=== PATIENT | female | born 1945 | race Caucasian/White ===

== ENCOUNTER 2020-10-03 00:01 | Inpatient (IN) | payer MEDICARE, SELFPAY ==
[2020-10-03] VITALS (31 sets, daily range): BP systolic 99–138; BP diastolic 48–64; PULSE 72–85; RESP 11–18; TEMP 36.1–36.7; O2SAT 94–100; BMI 38.7
--- NOTE | 2020-10-03 | ECHO_ITS ---
Patient Info Name: Juani Nam Age: 75 years : 1945 Gender: Female Ht: 63 in Wt: 218 lbs BSA: 2.15 m2 HR: 81 bpm BP: 119 / 56 mmHg Heart Rhythm: Sinus Rhythm Technical Quality: Good Exam Date: 10/03/2020 10:24 AM Exam Location: [facility] Pulmonary Exam Room: 211 Patient Status: Inpatient Admit Date: 10/03/2020 Staff Ordering Physician: Esteban Rosales MD Coat Hanger Shaper Machine Operator: Barbara Mejias RDCS Attending Provider: Esteban Rosales MD Exam Type: CA echo doppler color flow Study Info Indications - AMI HX/O PPM R07.89 - Other chest pain Complete two-dimensional, color flow and Doppler transthoracic echocardiogram is performed. Summary 1. Complete two-dimensional, color flow and Doppler transthoracic echocardiogram is performed. 2. Left ventricular chamber dimension is mildly enlarged. 3. Left ventricular systolic function is moderately reduced, estimated at 35-40%. 4. The posterior segment is akinetic. 5. Left atrial chamber dimension is moderately enlarged. 6. Linear artifact in the right atrium suggestive of catheter(s), pacemaker lead(s), or ICD lead(s). Left Ventricle Left ventricular chamber dimension is mildly enlarged. Left ventricular systolic function is moderately reduced, estimated at 35-40%. The left ventricular diastolic function is grade I diastolic dysfunction. The posterior segment is akinetic. Right Ventricle Right ventricular chamber dimension is mildly enlarged. Linear artifact in right ventricle suggestive of catheter(s), pacemaker lead(s), or ICD lead(s). Left Atria Left atrial chamber dimension is moderately enlarged. Right Atria Right atrial chamber dimension is mildly enlarged. Linear artifact in the right atrium suggestive of catheter(s), pacemaker lead(s), or ICD lead(s). Aortic Valve The aortic valve is trileaflet. There is mild aortic valve sclerosis. Pulmonic Valve The pulmonic valve is not well visualized. Mitral Valve The mitral valve has normal leaflets. There is trace mitral valve regurgitation. Tricuspid Valve The tricuspid valve leaflets are normal. There is mild tricuspid valve regurgitation. Pericardium/Pleural The pericardium appears normal. Aorta The aortic root size at the sinus of Valsalva is normal. Left Ventricular Outflow Tract Name Value Normal LVOT 2D LVOT Diameter 2.0 cm LVOT Doppler LVOT Peak Gradient 6 mmHg LVOT Mean Gradient 4 mmHg LVOT VTI 24 cm LVOT VTI/AV VTI Ratio 1.0 LVOT Stroke Volume 75 ml LVOT CO 16.5 l/min LVOT CI 7.7 l/min/m2 Pulmonic Valve Name Value Normal PV Doppler PV Peak Gradient 4 mmHg Mitral
--- NOTE | ~2020-10-03 | XR_ITS ---
EXAMINATION: XR chest 2V DATE: 10/03/2020 00:41 INDICATION: Midline chest pain. TECHNIQUE: Frontal and lateral views of the chest were obtained. COMPARISON: None. FINDINGS: The chest demonstrates clear lungs without pneumonia, pleural effusion, or pneumothorax. Th e heart size is normal. There is a left chest wall pacer with leads in the right atrium and right mallorie tricle. IMPRESSION: 1. No acute cardiopulmonary disease. Reviewed, dictated and finalized at location A.
--- NOTE | 2020-10-03 00:13 | ECG_ITS ---
Measurements Intervals [place] Rate: 78 P: 4 WI: 168 QRS: -2 QRSD: 117 T: 132 QT: 413 QTc: 473 Interpretive Statements SINUS RHYTHM INCOMPLETE LEFT BUNDLE BRANCH BLOCK LOW QRS VOLTAGE IN PRECORDIAL LEADS ST-T WAVE ABNORMALITY IN HIGH LATERAL LEADS- CONSIDER ISCHEMIA BASELINE ARTIFACT- II, III, AVR, AVF, V1, V3-V6 ABNORMAL ECG Electronically Signed On 10-03-2020 7:33:49 CDT by Dwight Corrigan D.O.
--- NOTE | 2020-10-03 00:21 | ED.CHESTPAIN ---
HPI - Chest Pain General Chief Complaint: Chest Pain Stated Complaint: cp, sob x 1 hour Time Seen by Provider: 10/03/20 00:20 Source: patient Mode of arrival: ambulatory Limitations: no limitations History of Present Illness HPI narrative: Patient is a 75-year-old female complaining of chest pain, midsternal, pressure, 7 out of 10, nonradiating accompanied by shortness of breath started approximate 1 hour prior to arrival. Patient took aspirin and nitro which provided relief, currently denies any chest pain or shortness of breath. Patient denies any abdominal pain, nausea, vomiting, diaphoresis, fever or chills. Related Data Allergies Allergy/AdvReac Type Severity Reaction Status Date / Time No Known Allergies Allergy Mild Verified 10/03/20 00:12 Review of Systems Review of Systems: All systems reviewed & are unremarkable except as noted in HPI and below Constitutional: Constitutional: Denies body ache(s), Denies chills, Denies excessive sweating, Denies fatigue, Denies fever(s), Denies headache(s), Denies lethargy, Denies malaise, Denies weakness and Denies weight loss Eyes: Eyes: Denies blurry vision, Denies change in vision and Denies loss of vision ENT: Denies dizziness, Denies ear discharge, Denies headache(s), Denies lip swelling, Denies epistaxis, Denies nasal congestion, Denies neck pain, Denies throat swelling and Denies tongue swelling Cardiovascular: Cardiovascular: Denies diaphoresis, Denies rapid heart rate, Denies edema, Denies irregular heart rhythm, Denies lightheadedness, Denies palpitations and Denies dyspnea on exertion Respiratory: Respiratory: Denies chest congestion, Denies cough, Denies hemoptysis and Denies dyspnea on exertion Gastrointestinal: Gastrointestinal: Denies abdominal pain, Denies melena, Denies hematochezia, Denies diarrhea, Denies nausea, Denies vomiting and Denies hematemesis Musculoskeletal: Musculoskeletal: Denies abnormal gait, Denies deformity, Denies joint swelling, Denies limited range of motion, Denies neck pain and Denies numbness Neurologic: Denies Abnormal speech present, Denies abnormal gait, Denies confusion, Denies dizziness, Denies headache(s), Denies focal weakness, Denies loss of vision, Denies numbness, Denies Other visual disturbances, Denies Sensory deficit (Neuro) and Denies weakness Psychiatric: Psychiatric: Denies confusion, Denies depression, Denies auditory hallucinations, Denies homicidal ideation and Denies suicidal ideation Endocrine: Endocrine: Denies cold intolerance, Denies excessive sweating, Denies fatigue, Denies heat intolerance and Denies palpitations Hematologic/Lymphatic: Hematologic/Lymphatic: Denies easy bleeding and Denies easy bruising Allergic/Immunologic: Allergic/Immunologic: Denies lip swelling, Denies throat swelling and Denies tongue swelling PMFSH Comments Past medical history: Coronary artery disease, hypertension, hyperlipidemia Family history: Noncontributory Social history: Non-smoker no EtOH use lives at home Exam Const: General: cooperative, healthy appearing, comfortable, no acute distress, well developed, alert and awake; No confusion Orientation/consciousness: oriented to person, oriented to place, oriented to time, patient oriented x3 and No confusion Limitations: no limitations HENMT: Head: normal to inspection, normocephalic and atraumatic Ears: hearing grossly normal bilaterally, TM normal on the right and TM normal on the left General nose exam: Normal external nose present, Normal nares present and No nasal discharge present Face and sinus: normal facial exam Mouth: Yes Normal oral and palatal mucosa present, Yes lip normal, Yes tongue normal and Yes oropharynx normal Throat: posterior oropharynx normal, tonsils normal and uvula midline Eyes: General: appearance normal, both eyes and all related structures Pupils: Equal, round and reactive pupils present EOM: EOMs intact bilaterally Neck: Neck: normal visual inspection, full
[2020-10-03 00:36] LABS: Basophils Absolute Auto 0.1 K/mm3 (0.0-0.1); Basophils Percent Auto 0.7 % (0.2-1.2); Eosinophils Absolute Auto 0.2 K/mm3 (0-0.3); Eosinophils Percent Auto 2.6 % (0-4.4); Hematocrit 34.1 % (37.0-47.0); Hemoglobin 10.9 g/dL (12.0-15.0); Immature Granulocyte Absolute 0.03 K/mm3 (0.00-0.031); Immature Granulocyte Percent A 0.4 % (0-0.5); Lymphocytes Absolute Auto 1.14 K/mm3 (0.9-3.2); Lymphocytes Percent Auto 13.7 % (18.3-44.2); Mean Corpuscular Hemoglobin 30.3 pg (26-34); Mean Corpuscular Volume 94.7 fl (80-100); Mean Platelet Volume 9.5 fl (7.4-10.4); Monocytes Absolute Auto 0.6 K/mm3 (0.1-0.6); Monocytes Percent Auto 6.9 % (2.6-8.5); Neutrophils Absolute Auto 6.3 K/mm3 (1.3-6.7); Neutrophils Percent Auto 75.7 % (45.5-73.1); Platelet Count Result 314 k/mm3 (150-375); Red Cell Distribution Width 14.4 % (11.5-14.5); White Blood Count 8.3 K/mm3 (4.5-10.0)
[2020-10-03 01:02] LABS: Anion Gap 7 mmol/L (8-16); Blood Urea Nitrogen 27 mg/dL (7-17); Calcium 9.2 mg/dL (8.4-10.2); Carbon Dioxide 28 mmol/L (22-30); Chloride 105 mmol/L (98-107); Estimated CRCL calculation 43 ml/min; Estimated Glomerular Filt Rate 48; Glucose 288 mg/dL (65-105); Potassium 4.8 mmol/L (3.4-5.0); Sodium 140 mmol/L (137-145)
[2020-10-03 01:41] LABS: Prothrombin Time 13.3 Seconds (11.1-14.7)
[2020-10-03 01:43] LABS: Partial Thromboplastin Time 30.2 SECONDS (22.3-36.8)
[2020-10-03] MEDS: NITROGLYCERIN OINTMENT 1 INCH DOSE TRANSDERM ×5 (02:17→23:33)
[2020-10-03] MEDS: HEPARIN SOD/D5W 100 UNITS/ML 25,000 UNITS/250 ML BAG 9 UNITS IV CONT (02:24)
[2020-10-03 06:18] LABS: Basophils Absolute Auto 0.1 K/mm3 (0.0-0.1); Basophils Percent Auto 0.7 % (0.2-1.2); Eosinophils Absolute Auto 0.2 K/mm3 (0-0.3); Eosinophils Percent Auto 2.7 % (0-4.4); Hematocrit 30.6 % (37.0-47.0); Hemoglobin 9.8 g/dL (12.0-15.0); Immature Granulocyte Absolute 0.03 K/mm3 (0.00-0.031); Immature Granulocyte Percent A 0.4 % (0-0.5); Lymphocytes Percent Auto 22.4 % (18.3-44.2); Mean Corpuscular Hemoglobin 29.6 pg (26-34); Mean Corpuscular Volume 92.4 fl (80-100); Mean Platelet Volume 9.2 fl (7.4-10.4); Monocytes Absolute Auto 0.6 K/mm3 (0.1-0.6); Monocytes Percent Auto 7.7 % (2.6-8.5); Neutrophils Absolute Auto 4.7 K/mm3 (1.3-6.7); Neutrophils Percent Auto 66.1 % (45.5-73.1); Platelet Count Result 271 k/mm3 (150-375); Red Blood Count 3.31 M/mm3 (4.2-5.4); Red Cell Distribution Width 14.3 % (11.5-14.5); White Blood Count 7.2 K/mm3 (4.5-10.0)
--- NOTE | 2020-10-03 07:30 | PM.TDS ---
Transfer Discharge Sum: Prov Provider Date of admission: 10/03/20 02:42 Primary care physician: Aston Ash, Admitting clinician: Aby Guevara DO Consults: 10/03/20 Wound/ET Consult Routine Reason for Consult:: wound from evacuated hematoma, RLE 10/03/20 02:43 Consult to Physician Routine Comment: Consulting Provider: Guero Kan Reason for consultation: NSTEMI Has provider been notified: Yes Attending physician on discharge: Esteban Rosales Discharging clinician: Esteban Rosales Anticipated date of transfer: 10/03/20 Receiving physician/facility: [facility] DS: Admitting Diagnosis Admitting Diagnosis Admitting Diagnosis: Chest pain DS: Discharge Diagnosis Discharge Diagnosis (1) Non-ST elevated myocardial infarction (non-STEMI): Code(s): I21.4 - Non-ST elevation (NSTEMI) myocardial infarction Status: Acute Assessment and Plan: Patient with mild chest pain for a few months but with more severe symptoms an hour prior to admission. She states the symptoms last night were very typical of what she has been experiencing over the past few months but just more severe. Troponin elevated to 15. EKG showing lateral ischemic changes. Continue heparin drip. Continue nitropaste. Cardiology has been consulted. Continue aspirin and add back her beta-ashley. Redevelopment Manager arranged for patient to be transferred to [facility]. Discussed. (2) CAD (coronary artery disease): Code(s): I25.10 - Atherosclerotic heart disease of [place] coronary artery without angina pectoris Status: Acute Assessment and Plan: Patient with extensive coronary history last heart catheterization 2 years ago. Also has pacemaker and ICD and medications consistent with CHF. Echocardiogram results reviewed. (3) Diabetes mellitus: Code(s): E11.9 - Type 2 diabetes mellitus without complications Status: Acute Assessment and Plan: Patient is on Lantus and Amaryl at home. Glucose in the morning appears to be well controlled although her other glucose values are probably higher given the fact her A1c is 8.1 recently. Will hold Amaryl and Lantus at this time until she is able to eat. Sliding scale protocol. A1c 8.1 and TSH normal. (4) Essential hypertension, benign: Code(s): I10 - Essential (primary) hypertension Status: Acute Assessment and Plan: Blood pressure well controlled at home per patient. Blood pressure here also well controlled. She is on Coreg and Entresto. She is also on chronic Lasix. She denies that she has a history of heart failure although suspicion that she does have low EF. This could explain why she has ICD place. Resumed home medications. (5) Hyperlipidemia: Code(s): E78.5 - Hyperlipidemia, unspecified Status: Acute Assessment and Plan: Patient is on atorvastatin and niacin chronically. (6) PADMINI (obstructive sleep apnea): Code(s): G47.33 - Obstructive sleep apnea (adult) (pediatric) Status: Acute Assessment and Plan: Patient is compliant with NIV at home. (7) Leg wound, right: Code(s): S81.801A - Unspecified open wound, right lower leg, initial encounter Status: Acute Assessment and Plan: Patient has a large right lower extremity hematoma that was evacuated 10 days ago. Wound bed only partially visualized appeared to have good granulation tissue. The dressing will need to be soaked off for further complete evaluation. Wound care consult has been ordered. Continue current dressing changes. (8) Anemia: Code(s): D64.9 - Anemia, unspecified Status: Acute Assessment and Plan: Hemoglobin 10.9 on admission. This has been repeated has dropped to 9.8. Iron studies noted. B12 noirmal. This could be related to recent hematoma and extensive bruising although this injury was 3 months ago.
--- NOTE | 2020-10-03 07:43 | PM.IMHP ---
H&P: HPI History of Present Illness Date/Time: 10/03/20 07:43 Chief Complaint: chest pain Narrative: 75yo female with CAD, DM, HTN and HLD here for chest pain. Patient has a history of CAD with myocardial infarction 21 years ago requiring 3 stents. She is followed by Dr. Lui, windows desktop engineer, and has had 3 additional stents placed over the years. Her last heart catheterization was about 2 years ago but no stents placed at that time. She is not very active due to a recent fall in June causing right leg hematoma that was evacuated about [address] Logan. Patient had noticed increasing edema of the right lower extremity due to the wound but also has noted bilateral lower extremity edema for the past 3-4 months. Edema is better with elevation. She denies any PND or orthopnea symptoms. She is sleeping well due to pain medication she takes at night from her surgeon. Patient has diabetes and her last A1c 3 months ago was 8.1. She uses Lantus and Amaryl. She checks her glucose in the morning that runs less 100. She is on atorvastatin for hyperlipidemia. She checks blood pressure at home runs normally low 130/60. She quit smoking 21 years ago but did smoke half pack a day for 25 years. She is noted be anemic here but denies any melena, hematochezia, or hematuria; she did have right lower extremity extensive bruising after a fall in June. No nausea or vomiting. No CHF history. No fever or chills. No anosmia or dyschezia. She has had a COVID vaccine x1 10 days ago. No history of seizures or strokes. Weight has been stable. Patient has a pacemaker and ICD in place for heart rhythm issues which was placed about a year ago. More recently, patient has been having mild chest pain off and on for the past couple months. It usually last about 15-20 minutes. On the evening prior to admission, patient developed chest pressure that she rates 7/10 that occurred at rest. There was shortness of breath and she felt clammy but no nausea or diaphoresis. No radiation of the pain. She called EMS and was told to take 4 baby aspirin which did relieve the pain somewhat. On EMS arrival she was given nitroglycerin that ?took away a lot of the pain? and states her pain dropped to 1/10. She presented emergency room for evaluation. In the emergency room, patient was hemodynamically stable. Chest x-ray is clear. Troponin was elevated on admission and has climbed to 15.1. BUN 27 and creatinine 1.1. Glucose was 288. Hemoglobin was 10.9. EKG showing normal sinus rhythm rate of 78, an incomplete left bundle branch block and ST T wave changes in the high lateral leads. She was started on heparin drip. She was given nitroglycerin appointment. Patient was admitted to the IMU. She is currently chest pain-free. Review of Systems Review of Systems: All systems reviewed & are unremarkable except as noted in HPI and below [facility] Past Medical History Medical History (Updated 10/03/20 @ 09:01 by Esteban Rosales MD) CAD (coronary artery disease) Hx of [place] with Stent x2 Diabetes mellitus Essential hypertension, benign Hx of intestinal obstruction 2000 Hyperlipidemia Incarcerated incisional hernia s/p adhesiolysis and hernia repair May 2003 PADMINI (obstructive sleep apnea) Surgical History Surgical History (Updated 10/03/20 @ 07:52 by Esteban Rosales MD) History of bladder surgery Hx of hysterectomy Hx of lumpectomy nonmalignant in 1990 Family History Family History (Updated 10/03/20 @ 06:22 by Kim Mcgrath RN) Grandparent Breast cancer Father Congestive heart failure Diabetes mellitus Hypertension Social History Social History (Updated 10/03/20 @ 09:02 by Esteban Rosales MD) Social History: She lives with her daughter and grandson. She is . No alcohol use. Currently a nonsmoker. No drug use. She wishes to be a DNR. She nominated her daughter Summer Nam to be the individual who would make medi
--- NOTE | 2020-10-03 08:55 | PC.NURSE ---
This patient, Juani Nam, was admitted to IMU Room 211-01. Patient/family oriented to hospital policies and general routines including ID bracelet, bed and alarms, visiting hours, pain management, procedures, bathroom and other care routines, personal items, smoking policy, room service/diet, and visiting hours. Information on how to activate the Rapid Response Team has been discussed. Patient/Family are encouraged to report perceived risks to care and to ask questions if they do not understand what they are told or what they should do.
[2020-10-03 09:04] LABS: Prothrombin Time 13.4 Seconds (11.1-14.7)
[2020-10-03 09:23] LABS: Glucose Point of Care 107 (65-105)
[2020-10-03 09:26] LABS: Partial Thromboplastin Time 49.2 SECONDS (22.3-36.8)
[2020-10-03 09:34] LABS: Alanine Aminotransferase 19 U/L (4-35); Albumin Level 3.7 g/dL (3.5-5.1); Alkaline Phosphatase 108 U/L (38-126); Aspartate Amino Transferase 92 U/L (14-36); Bilirubin,Total < 0.1 mg/dL (0.2-1.3); Cholesterol 120 mg/dL (0-200); HDL Direct 35 mg/dL; Triglycerides 186 mg/dL (<150)
[2020-10-03 09:45] LABS: Hemoglobin A1C 8.1 % (<5.7); LDL Cholesterol Direct 51 mg/dL
[2020-10-03 10:05] LABS: Iron 31 ug/dL (37-170)
[2020-10-03 10:13] LABS: Folic Acid > 20.0 ng/mL (2.76->20); Vitamin B12 > 1000.0 pg/mL (239-931)
[2020-10-03 10:14] LABS: Percent Iron Saturation 13 % (20-50)
[2020-10-03] MEDS: carvediloL 25 MG TABLET PO ×2 (10:45→21:17)
[2020-10-03] MEDS: buPROPion HCL 75 MG TABLET PO ×2 (10:45→21:17)
[2020-10-03] MEDS: SACUBITRIL/VALSARTAN 49-51 MG TABLET 1 TABLET PO ×2 (10:46→21:17)
[2020-10-03] MEDS: CYANOCOBALAMIN 500 MCG TABLET PO ×2 (10:46→21:17)
[2020-10-03] MEDS: ATORVASTATIN 40 MG TABLET PO (10:46)
[2020-10-03] MEDS: THERAPEUTIC MULTIVITAMINS/MINERALS TAB (*BKC) 1 TABLET PO (10:46)
[2020-10-03] MEDS: HEPARIN SODIUM 5,000 UNITS/ML VIAL 4000 UNITS IV PUSH (10:48)
[2020-10-03] MEDS: ASPIRIN 81 MG ENTERIC TABLET PO (10:52)
--- NOTE | 2020-10-03 11:11 | PM.CNCAR ---
Assessment and Plan Additional Plan This is a 75-year-old lady who obviously has a history of multivessel coronary disease with a number of interventions being done over the past 20 years by her ground services instructor in [place] who also practices at [facility]. She is on as fairly typical medical regimen for this ischemic cardiomyopathy she is not in any decompensated heart failure and received a defibrillator device for this reason some time in the last year to year and a half. She presents [facility] with an incident of chest pain last night and has had a significant troponin rise indicating obvious evidence of a non ST elevation FL. In this setting I would generally recommend a follow-up angiogram and it would also seem fairly clear that it would be in the patient's safety interest to have this procedure done by her established ground services instructor at [facility] which has significantly more hemodynamics support capability then we have here at [place]. The patient in my opinion should be transferred to [facility] where her established ground services instructor can evaluate her condition and to provide angiography and/or intervention if indicated at that institution. Jamshid Alford MD [facility] History of Present Illness History of Present Illness Consult date/time: 10/03/20 11:11 Consult reason: chest pain Reason For Visit: NSTEMI Narrative: This is a very pleasant 75-year-old lady who I am seeing today at the request of the hospitalist because of what appears to be a non ST segment elevation FL. The patient is unknown to me prior to this encounter she is comfortable at this time in her room 211 in the IMU. She states that last night about 10:30 p.m. L at home sitting at a table she started to have chest pain that she describes as a low retrosternal pressure-like sensation that was moderate to severe in intensity. She says she has a long history of coronary disease and previous infarctions in the past but has never had chest pain this severe in the past. Her family called 911. While they were coming she chewed 4 baby aspirin tablets which she says she started to provide fairly prompt relief of her symptom she still had moderate chest pain when the paramedics arrived at her home. She lives in [facility]. On route in the ambulance she was given nitroglycerin spray which she says essentially alleviated her pain the rest of the way and she has not had any more of it since then. She wanted to go to the hospital in [place] because that is where her ground services instructor works but the EMS crew advised bring her to [place] instead. Her electrocardiogram on arrival shows a sinus mechanism with an incomplete left bundle branch block and troponin levels were modestly elevated on admission and have risen to 15. In this setting I am seeing her in consultation. Apparently she has a history of coronary artery disease for more than 20 years and is a patient of with [facility]. According to the patient she had a significant myocardial infarction couple of decades ago and since then has had several more interventional procedures performed. Obviously I do not have any of the records or details of this as I dictate this note. She says sometime about a year ago or slightly more than that Dr. Lui recommended implanting a a defibrillator. That was placed at [facility]. I asked the patient if she could provide any details for the severity of her cardiomyopathy but she is not able to do that. Her medical regimen at home includes aspirin, atorvastatin, carvedilol, clopidogrel and Entresto. Also of significance is she recently had a fall at home in June. She sustained a significant injury to her right leg that ultimately bled and developed hematoma that required surgical drainage and debridement at [address] about 10 days ago. She has an open wound in the right leg for that reason. Review of Syste
[2020-10-03 12:41] LABS: Glucose Point of Care 105 (65-105)
[2020-10-03 16:46] LABS: Glucose Point of Care 162 (65-105)
[2020-10-03 17:35] LABS: Partial Thromboplastin Time 87.6 SECONDS (22.3-36.8)
[2020-10-03 20:50] LABS: Glucose Point of Care 164 (65-105)
[2020-10-03 23:13] LABS: Partial Thromboplastin Time 84.7 SECONDS (22.3-36.8)
[2020-10-03] MEDS: HEPARIN SOD/D5W 100 UNITS/ML 25,000 UNITS/250 ML BAG 12 UNITS IV CONT (23:23)
[2020-10-04] VITALS: BP 90/51; PULSE 73; PULSE 78; RESP 18; TEMP 36.2; O2SAT 95
[2020-10-04 02:00] VITALS: PULSE 72
[2020-10-04 04:00] VITALS: BP 106/46; PULSE 73; RESP 18; TEMP 36.4; O2SAT 95
[2020-10-04 05:17] LABS: Basophils Absolute Auto 0.1 K/mm3 (0.0-0.1); Basophils Percent Auto 0.6 % (0.2-1.2); Eosinophils Absolute Auto 0.2 K/mm3 (0-0.3); Eosinophils Percent Auto 2.5 % (0-4.4); Hematocrit 29.2 % (37.0-47.0); Hemoglobin 9.2 g/dL (12.0-15.0); Immature Granulocyte Absolute 0.04 K/mm3 (0.00-0.031); Immature Granulocyte Percent A 0.5 % (0-0.5); Lymphocytes Absolute Auto 1.73 K/mm3 (0.9-3.2); Lymphocytes Percent Auto 21.5 % (18.3-44.2); Mean Corpuscular HGB Conc 31.5 g/dl (32-36); Mean Corpuscular Hemoglobin 29.4 pg (26-34); Mean Corpuscular Volume 93.3 fl (80-100); Mean Platelet Volume 9.4 fl (7.4-10.4); Monocytes Absolute Auto 0.5 K/mm3 (0.1-0.6); Monocytes Percent Auto 6.5 % (2.6-8.5); Neutrophils Absolute Auto 5.5 K/mm3 (1.3-6.7); Neutrophils Percent Auto 68.4 % (45.5-73.1); Platelet Count Result 285 k/mm3 (150-375); Red Blood Count 3.13 M/mm3 (4.2-5.4); Red Cell Distribution Width 14.6 % (11.5-14.5); White Blood Count 8.1 K/mm3 (4.5-10.0)
[2020-10-04 05:32] LABS: Partial Thromboplastin Time 84.6 SECONDS (22.3-36.8)
[2020-10-04 05:33] LABS: Albumin Level 3.4 g/dL (3.5-5.1); Anion Gap 3 mmol/L (8-16); Blood Urea Nitrogen 27 mg/dL (7-17); Calcium 8.8 mg/dL (8.4-10.2); Carbon Dioxide 29 mmol/L (22-30); Chloride 106 mmol/L (98-107); Estimated CRCL calculation 43 ml/min; Estimated Glomerular Filt Rate 48; Glucose 140 mg/dL (65-105); Magnesium 2.1 mg/dL (1.6-2.3); Phosphorus 4.1 mg/dL (2.5-4.5); Potassium 4.5 mmol/L (3.4-5.0); Sodium 138 mmol/L (137-145)
[2020-10-04] MEDS: NITROGLYCERIN OINTMENT 1 INCH DOSE TRANSDERM (05:55)
[2020-10-04 06:00] VITALS: PULSE 88
--- NOTE | 2020-10-04 06:00 | PC.NURSE ---
Patient awaiting transport to [facility] via ambulance. Updated ETAs obtained from [facility] by this RN at 2037, 2302, 0138, and 0426. Other services contacted by this RN and were unavailable for transport.
== END 2020-10-04 06:04 | disposition short-term general hospital (02) | DRG 282 ==
LOC: ANHED 01:58 → ANHIMU 03:14
PROVIDERS: Admitting Provider Internal Medicine; Emergency Provider Emergency Medicine; PCP Internal Medicine; Visit Provider Internal Medicine
DX: I21.4 Non-ST elevation (NSTEMI) myocardial infarction (principal); I25.10 Atherosclerotic heart disease of native coronary artery without angina pectoris; E11.9 Type 2 diabetes mellitus without complications; I10 Essential (primary) hypertension; E78.5 Hyperlipidemia, unspecified; G47.33 Obstructive sleep apnea (adult) (pediatric); S81.801A Unspecified open wound, right lower leg, initial encounter; D64.9 Anemia, unspecified; S81.801D Unspecified open wound, right lower leg, subsequent encounter; W19.XXXD Unspecified fall, subsequent encounter; Z95.810 Presence of automatic (implantable) cardiac defibrillator; I25.2 Old myocardial infarction; Z95.5 Presence of coronary angioplasty implant and graft; Z90.710 Acquired absence of both cervix and uterus; Z87.891 Personal history of nicotine dependence
CPT/HCPCS: 36415; 71046; 80048; 80061; 80069; 80076; 82607; 82728; 82746; 82948; 83036; 83540; 83550; 83735; 84443; 84484; 85025; 85610; 85730; 93005; 93306; 96365; 99291; A9270; J1644

== ENCOUNTER 2023-01-09 11:46 | Emergency (ER) | payer MEDICARE, SELFPAY ==
--- NOTE | ~2023-01-09 | XR_ITS ---
EXAMINATION: XR wrist LT min 3V DATE: 01/09/2023 12:51 INDICATION: One week of left wrist pain post lifting injury TECHNIQUE: Posteroanterior, ulnar deviation, oblique, and lateral views of the left wrist were obtain ed. COMPARISON: none FINDINGS: Diffuse osteopenia. 2 mm ulnar minus variance. Alignment is otherwise normal. Chondrocalcinosis in th e region of the triangular fibrocartilage complex. Increased lucency with curvilinear sclerosis at th e proximal/ulnar side of the lunate which appears more represent cystic changes on the oblique radiog raph. No fractures identified. Polyarticular osteoarthritis, severe at the first carpometacarpal and third proximal interphalangeal joints and mild to moderate severity at the remaining visualized inter phalangeal joints and mild at the wrist, midcarpal and triscaphe joints and multiple metacarpophalang eal joints. IMPRESSION: 1. Polyarticular osteoarthritis, mild at the left wrist and moderate to severe mid left hand. 2. Prominent cystic change at the proximal/ulnar side of the lunate. 3. Diffuse osteopenia. Reviewed, dictated and finalized at location A.
[2023-01-09 11:48] VITALS: BP 96/54; PULSE 73; RESP 18; TEMP 36.4; O2SAT 97
--- NOTE | 2023-01-09 12:58 | ED.GENADULT ---
HPI - General Adult General Chief complaint: Extremity Injury, Upper Stated complaint: left wrist injury Time Seen by Provider: 01/09/23 11:54 History of Present Illness HPI narrative: Patient is a 77-year-old female who presents ER with left wrist pain. Ongoing for 6 days. Began hurting after trying to get herself out of a chair. She was seen by her tuber machine operator helper who thought she may have some gout. No fevers or chills or sweats. Patient has increased pain with flexion extension. No numbness or tingling. No redness to the joint. Patient is unsure what her creatinine is. The last creatinine here was in 2020 and it was 1.1. Related Data Home Medications Medication Instructions Recorded Confirmed acetaminophen 500 mg capsule 1,000 mg PO TID PRN Pain (Scale 10/03/20 10/03/20 Score 1-3) aspirin 81 mg tablet 81 mg PO DAILY 10/03/20 10/03/20 atorvastatin 40 mg tablet 40 mg PO DAILY 10/03/20 10/03/20 bupropion HCl 75 mg tablet 75 mg PO BID 10/03/20 10/03/20 calcium carbonate 600 mg calcium 600 mg PO DAILY 10/03/20 10/03/20 (1,500 mg) tablet (Calcium) carvedilol 25 mg tablet 25 mg PO BID 10/03/20 10/03/20 clopidogrel 75 mg tablet 75 mg PO DAILY 10/03/20 10/03/20 cyanocobalamin (vitamin B-12) 500 500 mcg PO BID 10/03/20 10/03/20 mcg tablet (Vitamin B-12) febuxostat 40 mg tablet 40 mg PO DAILY 10/03/20 10/03/20 furosemide 20 mg tablet 40 mg PO DAILY 10/03/20 10/03/20 glimepiride 4 mg tablet 4 mg PO BIDWM 10/03/20 10/03/20 insulin glargine 100 unit/mL 60 unit subcut DAILY 10/03/20 10/03/20 subcutaneous solution (Lantus U-100 Insulin) rbobmrkm-baf-rrbw-FA-Ca carb-vit K 1 tablet PO DAILY 10/03/20 10/03/20 18 mg iron-400 mcg-500 mg tablet (One-A-Day Womens Formula) niacin 500 mg tablet 500 mg PO DAILY 10/03/20 10/03/20 potassium chloride 10 mEq 10 meq PO DAILY 10/03/20 10/03/20 tablet,extended release(part/cryst) sacubitril 49 mg-valsartan 51 mg 1 tablet PO BID 10/03/20 10/03/20 tablet (Entresto) Allergies Allergy/AdvReac Type Severity Reaction Status Date / Time No Known Allergies Allergy Mild Verified 10/03/20 06:23 Review of Systems Constitutional: Constitutional: Denies chills and Denies fever(s) Musculoskeletal: Musculoskeletal: Reports arthralgias and Reports joint swelling Integumentary/Breasts: Skin/Breast: Denies erythema and Denies rash Neurologic: Denies focal weakness and Denies numbness PMFSH Past Medical History Medical History (Updated 01/09/23 @ 13:48 by Clayton Shaffer MD) CAD (coronary artery disease) Hx of [place] with Stent x2 Diabetes mellitus Essential hypertension, benign Hx of intestinal obstruction 2000 Hyperlipidemia Incarcerated incisional hernia s/p adhesiolysis and hernia repair May 2003 PADMINI (obstructive sleep apnea) Surgical History Surgical History (Updated 10/03/20 @ 07:52 by Esteban Rosales MD) History of bladder surgery Hx of hysterectomy Hx of lumpectomy nonmalignant in 1990 Family History Family History (Updated 10/03/20 @ 06:22 by Kim Mcgrath RN) Grandparent Breast cancer Father Congestive heart failure Diabetes mellitus Hypertension Social History Social History (Updated 10/03/20 @ 09:02 by Esteban Rosales MD) Social History: She lives with her daughter and grandson. She is . No alcohol use. Currently a nonsmoker. No drug use. She wishes to be a DNR. She nominated her daughter Summer Nam to be the individual who would make medical decisions for her if she is unable. Smoking packs per day: 0.5 Smoking cigarettes per day: 10.0 Years smoked: 25 Smoking pack-years: 12.50 Smoking status: Former smoker Alcohol intake: never Substance use: never Spiritual care concerns: No Exam Narrative: GENERAL: Well-appearing, well-nourished, and in no acute distress. HEAD: Normocephalic, atraumatic. ENT: Mucous membranes moist. HEART: Regular rate and rhythm. Normal peripheral pulses. EX
== END 2023-01-09 14:15 | disposition home or self-care (01) ==
PROVIDERS: Emergency Provider Emergency Medicine; PCP Internal Medicine
DX: M19.032 Primary osteoarthritis, left wrist (principal); I25.10 Atherosclerotic heart disease of native coronary artery without angina pectoris; I10 Essential (primary) hypertension; E11.9 Type 2 diabetes mellitus without complications; E78.5 Hyperlipidemia, unspecified; G47.33 Obstructive sleep apnea (adult) (pediatric); Z66 Do not resuscitate; Z87.891 Personal history of nicotine dependence; Z90.710 Acquired absence of both cervix and uterus; Z79.4 Long term (current) use of insulin; Z79.82 Long term (current) use of aspirin; M85.88 Other specified disorders of bone density and structure, other site; M19.042 Primary osteoarthritis, left hand
CPT/HCPCS: 29125; 73110; 99283

== ENCOUNTER 2024-06-01 17:10 | Inpatient (IN) | payer MEDICARE, SELFPAY ==
[2024-06-01] VITALS (20 sets, daily range): BP systolic 89–115; BP diastolic 40–81; PULSE 62–76; RESP 13–23; TEMP 36.6; O2SAT 93–98
--- NOTE | ~2024-06-01 | CT_ITS ---
CT brain wo con Ordering provider: Esperanza Aquino PA-C History: 79 years Female with . syncope . Comparison: None. Technique: CT of the head without contrast. Radiation reduction technique utilized.The dose-length product was 605.33 mGy-cm. FINDINGS: BRAIN PARENCHYMA AND CSF SPACES: Mild leukoaraiosis and diffuse cortical atrophy. Mild atheromatous d isease. No midline shift, mass effect or hemorrhage. The brain parenchyma and CSF spaces are otherwi se normal. VISUALIZED PARANASAL SINUSES: Well aerated. MASTOIDS: Well aerated. BONES: The bones appear intact. SOFT TISSUES: Visualized nasopharynx is normal. Superficial soft tissues are normal. IMPRESSION: No acute intracranial findings. Reviewed, dictated and finalized at location A. OR CLINICAL RESEARCH SCIENTIST
--- NOTE | ~2024-06-01 | CT_ITS ---
CT lumbar spine wo con Ordering provider: Esperanza Aquino PA-C History: 79 years Female with . fall, lbp . Comparison: None. Technique: CT lumbar spine without contrast. Automated exposure control and iterative reconstruction technique were employed. The dose-length product was 1181.29 mGy-cm. FINDINGS: VERTEBRAE: Normal height and alignment. No subluxation or visible acute fracture. DISC SPACES: Narrowing of the disc L2-L3, and L3-L4. Facet joint disease at the level of L4-L5 and L5 -S1. T12-L1: No stenosis. L1-L2: No stenosis. Bilateral facet joint disease. L2-L3: No stenosis. Bilateral facet joint disease. L3-L4: No stenosis. Bilateral facet joint disease. L4-L5: No stenosis. Diffuse disc bulge with bilateral narrowing of the foramina and the root [place]. Bilateral facet joint disease. L5-S1: No stenosis. Bilateral facet joint disease. PARASPINOUS SOFT TISSUES: Mild atheromatous disease of the abdominal aorta. Stents are seen in the il iac arteries.: Diverticulosis. Left sacroiliitis. IMPRESSION: No acute osseous abnormality. Multilevel degenerative disc disease. Reviewed, dictated and finalized at location A. IGRAPH OPERATOR
--- NOTE | ~2024-06-01 | CT_ITS ---
CT pelvis wo con Ordering provider: Esperanza Aquino PA-C History: . fall, lbp, l hip pain . Comparison: None. Technique: CT pelvis without oral and IV contrast. . Automated exposure control and iterative recons truction technique were employed. The dose-length product was 908.91 mGy-cm. Findings: BONES: No pelvic fracture or hip dislocation. Age appropriate degenerative changes of the visualized lower lumbar spine. Left sacroiliitis. The hip joint spaces are narrowed bilaterally. Pubic symphysitis. SUPERFICIAL SOFT TISSUES: Fat stranding in the anterior abdominal wall. Fat-containing abdominal wall hernia. PELVIC ORGANS: The bladder is normal. Bilateral iliac stents. Diverticulosis of the colon. VISUALIZED BOWEL AND MESENTERY: Normal. No free air or free fluid. No lymphadenopathy. RETROPERITONEUM: Mild atheromatous disease. IMPRESSION: No fracture or dislocation. Diverticulosis of the sigmoid colon. Fat-containing abdominal wall hernia. Reviewed, dictated and finalized at location A. IDENTIAL SUPPORT SPECIALIST
--- NOTE | ~2024-06-01 | CT_ITS ---
CT cervical spine wo con Ordering provider: Esperanza Aquino PA-C History: . syncope . Comparison: None. Technique: CT of the cervical spine was performed without contrast. Sagittal and coronal reformatted images were also obtained and reviewed. Automated exposure control and iterative reconstruction carole hnique were employed. The dose-length product was 485.04 mGy-cm. FINDINGS: VERTEBRAE: No subluxation or acute fracture. The occipital condyles are intact. DISC SPACES: Narrowing of the disc C3-C4, C5-C6 and C6-C7. Multilevel facet joint disease. Multilevel uncovertebral joint osteoarthritic changes. Narrowing of the left foramina at the level of C4-C5. PARASPINOUS SOFT TISSUES: Bilateral carotid atherosclerotic changes. Possible nodule in the right lob e of the thyroid. Ultrasound evaluation advised. IMPRESSION: No acute osseous abnormality cervical spine. Reviewed, dictated and finalized at location A. VELOPMENT MANAGER
--- NOTE | ~2024-06-01 | XR_ITS ---
EXAMINATION: XR chest 1V portable DATE: 06/02/2024 05:41 INDICATION: Syncope TECHNIQUE: frontal view of the chest was obtained. COMPARISON: Chest radiograph dated 10/03/2020 FINDINGS: Pulmonary vascular congestion and mild increased interstitial pattern in the bilateral mid and lower lungs consistent with mild pulmonary edema. No other airspace opacities, pleural effusion or pneumoth orax. Heart size is within normal limits for AP technique. Dual lead pacemaker/AICD seen with leads p rojecting over the expected locations of the right atrium and right ventricle. IMPRESSION: 1. Pulmonary vascular congestion and mild pulmonary edema in the lower lungs. Reviewed, dictated and finalized at location A. GER CONCRETE
--- NOTE | ~2024-06-01 | XR_ITS ---
XR ankle RT min 3V Ordering provider: Esteban Rosales MD History: . pain, fall . Comparison: None. FINDINGS: BONES: No acute fracture or dislocation. Osteopenia of the bones. Calcaneal spur. JOINT SPACES: Normal. SOFT TISSUES: Normal. IMPRESSION: No acute osseous abnormality of the right ankle. Reviewed, dictated and finalized at location A. ING BOOKS LIBRARY CLERK
--- NOTE | 2024-06-01 17:21 | ECG_ITS ---
Test Date: 2024-06-01 17:23:31 Measurements Intervals [place] Rate: 64 P: -13 FL: 172 QRS: -8 QRSD: 128 T: 2 QT: 448 QTc: 466 Interpretive Statements SINUS RHYTHM INFERIOR MYOCARDIAL INFARCTION , PROBABLY OLD [40+ ms Q WAVE AND/OR ST/T ABNORMALITY IN II/aVF] INTRAVENTRICULAR CONDUCTION DELAY NONSPECIFIC T-WAVE ABNORMALITY ABNORMAL ECG Electronically Signed On 06-01-2024 17:29:50 SPECIFICATION MANAGER by Guero Kan M.D.
--- NOTE | 2024-06-01 17:43 | ED_ITS ---
HPI - Altered Mental Status General Chief Complaint: Altered Mental Status Stated Complaint: hypoglycemic Source: patient and family Mode of arrival: EMS Limitations: clinical condition History of Present Illness HPI narrative: Patient is an 79-year-old female, with PMH of CAD s/p coronary stenting on plavix, DM, CHF, who presents the ED via EMS with report of syncope and hypoglycemia. Per family at bedside, daughter came home to find patient on the ground altered and confused. EMS was notified. Patient was found to be hypoglycemic with a blood sugar in the 40s. She does have history of frequent hypoglycemic episodes. She is on glimepiride, farxiga. Patient states the last thing she remembers is waking up on the ground. Daughter is unsure how long she was on the ground. She states it appeared as though she was cooking lunch, but is unsure what time this was. Patient complains of pain to her lower back and left hip, generalized weakness. Denies dizziness, lightheadedness, focal weakness, vision changes, headache, chest pain, shortness of breath. Related Data Home Medications ?Medication ?Instructions ?Recorded ?Confirmed ?Last Taken ?Type acetaminophen 500 mg capsule 1,000 mg PO TID PRN Pain (Scale 10/03/20 10/03/20 Unknown History Score 1-3) aspirin 81 mg tablet 81 mg PO DAILY 10/03/20 10/03/20 Unknown History atorvastatin 40 mg tablet 40 mg PO DAILY 10/03/20 10/03/20 Unknown History bupropion HCl 75 mg tablet 75 mg PO BID 10/03/20 10/03/20 Unknown History calcium carbonate (Calcium 600) 600 mg PO DAILY 10/03/20 10/03/20 Unknown History carvedilol 25 mg tablet 25 mg PO BID 10/03/20 10/03/20 Unknown History clopidogrel 75 mg tablet 75 mg PO DAILY 10/03/20 10/03/20 Unknown History cyanocobalamin (vitamin B-12) 500 500 mcg PO BID 10/03/20 10/03/20 Unknown History mcg tablet (Vitamin B-12) febuxostat 40 mg tablet 40 mg PO DAILY 10/03/20 10/03/20 Unknown History furosemide 20 mg tablet 40 mg PO DAILY 10/03/20 10/03/20 Unknown History glimepiride 4 mg tablet 4 mg PO BIDWM 10/03/20 10/03/20 Unknown History insulin glargine 100 unit/mL 60 unit subcut DAILY 10/03/20 10/03/20 Unknown History subcutaneous solution (Lantus U-100 Insulin) heaqabrj-[id number]-FA-Ca carb-vit K 1 tablet PO DAILY 10/03/20 10/03/20 Unknown History 18 mg iron-400 mcg-500 mg tablet (One-A-Day Womens Formula) niacin 500 mg tablet 500 mg PO DAILY 10/03/20 10/03/20 Unknown History potassium chloride 10 mEq 10 meq PO DAILY 10/03/20 10/03/20 Unknown History tablet,extended release(part/cryst) sacubitril 49 mg-valsartan 51 mg 1 tablet PO BID 10/03/20 10/03/20 Unknown History tablet (Entresto) Allergies Allergy/AdvReac Type Severity Reaction Status Date / Time No Known Allergies Allergy Mild Verified 10/03/20 06:23 Review of Systems 2 Review of Systems: All systems reviewed & are unremarkable except as noted in HPI. All systems reviewed & are unremarkable except as noted in HPI and below PMFSH Past Medical History Medical History PADMINI (obstructive sleep apnea) Diabetes mellitus CAD (coronary artery disease) Hx of [place] with Stent x2 Essential hypertension, benign Hyperlipidemia Hx of intestinal obstruction 2000 Incarcerated incisional hernia s/p adhesiolysis and hernia repair May 2003 Surgical History Surgical History History of bladder surgery Hx of hysterectomy Hx of lumpectomy nonmalignant in 1990 Family History Family History Grandparent Breast cancer Father Congestive heart failure Diabetes mellitus Hypertension Social History Social History Social History: She lives with her daughter and grandson. She is . No alcohol use. Currently a nonsmoker. No drug use. She wishes to be a DNR. She nominated her daughter Summer Nam to be the individual who would make medical decisions for her if she is unable. Smoking packs per day: 0.5 Smoking cigarettes per day: 10.0 Years smoked: 25 Smoking pack-years: 12.50 Smoking status: Former smoker Alcohol intake: never Substance use: never Spiritual care concerns: No Exam 2 Narrative: GENERAL: Elderly, morbidly obese with BMI of 44.0, non-toxic, in no acute distress. HEAD: Normocephalic, atraumatic. RESPIRATORY: Airway patent, respirations nonlabored. Clear to auscultation bilaterally, no rales, rhonchi, wheezing. CARDIOVASCULAR: Regular rate and rhythm without murmurs, rubs, or gallops. ABDOMINAL: Soft, nontender, nondistended. Normoactive BS. MUSCULOSKELETAL: Moves all extremities. No gross deformities. Tenderness to palpation throughout lower midline lumbar region and into left lumbosacral region. No palpable bony deformities. No appreciable tenderness over left posterior hip. Able to flex and extend at left hip. SKIN: Warm, dry, normal color. NEURO: A&O X3. Speech clear. Cranial nerves II-XII grossly intact. Steady gait. No ataxic movements. No focal deficits. PSYCHIATRIC: Appropriate mood and affect. Normal interaction. Course Vital Signs Vital signs: Vital Signs Temperature 97.9 F 06/01/24 17:13 Pulse Rate 64 06/01/24 17:13 Respiratory Rate 18 06/01/24 17:13 Pulse Oximetry 97 06/01/24 17:13 Oxygen Delivery Room Air 06/01/24 17:13 Temperature 97.9 F 06/01/24 17:13 Pulse Rate 76 06/01/24 23:31 Respiratory Rate 14 06/01/24 23:31 Blood Pressure 115/56 L 06/01/24 23:31 Pulse Oximetry 97 06/01/24 23:31 Oxygen Delivery Room Air 06/01/24 17:22 MDM - Altered Mental Status MDM Narrative Medical decision making narrative: Patient presented to ED status post possible syncopal episode, altered mental status, hypoglycemia. Initially found by daughter, unknown down time. Initial blood sugar by EMS was in the 40s. She does have history of this. Blood sugar upon arrival to the ED 112. Vital signs are otherwise stable, blood pressure borderline hypotensive. Fluids initiated. Syncope workup initiated. EKG is without concerning ischemic changes. No STEMI. CBC with white blood cell count of 12.3. Slight anemia noted, consistent with previous records. CMP with stable electrolytes, slight bump in creatinine to 1.4. Baseline around 1.1 per records. Fluids ongoing. Blood sugar on labs 128. Lactic acid within normal range at 1.6. Magnesium within normal range. Troponin is undetectable. Will obtain 3 hour and continue to trend. CK is mildly elevated to 386. Fluids ongoing. UA with trace leuks, 11-20 whites, no urine bacteria seen. Sent for culture. Denying urinary complaints. CT brain negative. C-spine negative. CTs of pelvis and lumbar spine also without traumatic findings. No acute fractures. Given unprovoked syncopal episode with hypoglycemia on sulfonylurea, AMS, will admit for further evaluation management/monitoring. Discussed case with Dr. Echeverria, hospitalist, accepted patient for admission. IMU status. Will start Rocephin for potential UTI to cover with antibiotics. Patient and family in agreement with plan and need for admission. Blood sugars have remained stable for last couple of hours in the ED. Will remain q 2 hour checks. She was allowed to eat in the ED. Medical Records Attestation: I reviewed the patient's medical records. Lab Data Attestation: I reviewed the patient's lab results. 06/01/24 17:42 06/01/24 17:42 Labs: Lab Results 06/01/24 06/01/24 06/01/24 Range/Units 17:17 17:42 17:42 WBC 12.3 H (4.5-10.0) K/mm3 RBC 3.63 L (4.2-5.4) M/mm3 Hgb 10.7 L (12.0-15.0) g/dL Hct 35.7 L (37.0-47.0) % MCV 98.3 (80-100) fl MCH 29.5 (26-34) pg MCHC 30.0 L (32-36) g/dl RDW 16.9 H (11.5-14.5) % Plt Count 282 (150-375) k/mm3 MPV 9.0 (7.4-10.4) fl Immature Gran % (Auto) 0.8 H (0-0.5) % Neut % (Auto) 89.1 H (45.5-73.1) % Lymph % (Auto) 5.5 L (18.3-44.2) % [place] % (Auto) 3.1 (2.6-8.5) % Eos % (Auto) 1.1 (0-4.4) % Baso % (Auto) 0.4 (0.2-1.2) % Lymph # (Auto) 0.68 L (0.9-3.2) K/mm3 [place] # (Auto) 0.4 (0.1-0.6) K/mm3 Eos # (Auto) 0.1 (0-0.3) K/mm3 Baso # (Auto) 0.1 (0.0-0.1) K/mm3 Abs Immat Gran (auto) 0.10 H (0.00-0.031) K/mm3 Absolute Neuts (auto) 10.9 H (1.3-6.7) K/mm3 Absolute Nucleated RBC 0.000 (0.0-0.012) K/mm3 Nucleated RBC % 0.0 (0.0-0.2) % PT 14.6 (11.1-14.7) Seconds INR 1.1 APTT 26.8 (22.3-36.8) Seconds Sodium Cancelled 140 Potassium Cancelled Chloride Carbon Dioxide Anion Gap BUN Creatinine Estim Creat Clear Calc Estimated GFR Glucose POC Capillary Glucose 112 H (65-105) mg/dl Lactic Acid (0.7-2.0) mmol/L Calcium Magnesium (1.6-2.3) mg/dL Total Creatine Kinase (30-135) U/L Troponin I (0.000-0.034) ng/mL Urine Color (Yellow) Urine Appearance (Clear) Urine pH (5.0-9.0) Ur Specific [place] (1.001-1.035) Urine Protein (Negative) mg/dL Urine Glucose (UA) (Negative) mg/dL Urine Ketones (Negative) mg/dL Ur Blood (Man) (Negative) Urine Nitrate (Negative) Urine Bilirubin (Negative) Urine Urobilinogen (<2.0) mg/dL Leukocyte Esterase Rfl (Negative) JOSE MANUEL/UL Urine RBC (0-2) /hpf Urine WBC (0-3) /hpf Ur Squamous Epith Cells (Few) /hpf Urine Bacteria /hpf Urine Casts 06/01/24 06/01/24 06/01/24 Range/Units 17:42 17:42 17:42 WBC (4.5-10.0) K/mm3 RBC (4.2-5.4) M/mm3 Hgb (12.0-15.0) g/dL Hct (37.0-47.0) % MCV (80-100) fl MCH (26-34) pg MCHC (32-36) g/dl RDW (11.5-14.5) % Plt Count (150-375) k/mm3 MPV (7.4-10.4) fl Immature Gran % (Auto) (0-0.5) % Neut % (Auto) (45.5-73.1) % Lymph % (Auto) (18.3-44.2) % [place] % (Auto) (2.6-8.5) % Eos % (Auto) (0-4.4) % Baso % (Auto) (0.2-1.2) % Lymph # (Auto) (0.9-3.2) K/mm3 [place] # (Auto) (0.1-0.6) K/mm3 Eos # (Auto) (0-0.3) K/mm3 Baso # (Auto) (0.0-0.1) K/mm3 Abs Immat Gran (auto) (0.00-0.031) K/mm3 Absolute Neuts (auto) (1.3-6.7) K/mm3 Absolute Nucleated RBC (0.0-0.012) K/mm3 Nucleated RBC % (0.0-0.2) % PT (11.1-14.7) Seconds INR APTT (22.3-36.8) Seconds Sodium Potassium 4.0 Chloride Cancelled 110 H Carbon Dioxide Cancelled 29 Anion Gap Cancelled BUN Creatinine Estim Creat Clear Calc Estimated GFR Glucose POC Capillary Glucose (65-105) mg/dl Lactic Acid (0.7-2.0) mmol/L Calcium Magnesium (1.6-2.3) mg/dL Total Creatine Kinase (30-135) U/L Troponin I (0.000-0.034) ng/mL Urine Color (Yellow) Urine Appearance (Clear) Urine pH (5.0-9.0) Ur Specific [place] (1.001-1.035) Urine Protein (Negative) mg/dL Urine Glucose (UA) (Negative) mg/dL Urine Ketones (Negative) mg/dL Ur Blood (Man) (Negative) Urine Nitrate (Negative) Urine Bilirubin (Negative) Urine Urobilinogen (<2.0) mg/dL Leukocyte Esterase Rfl (Negative) JOSE MANUEL/UL Urine RBC (0-2) /hpf Urine WBC (0-3) /hpf Ur Squamous Epith Cells (Few) /hpf Urine Bacteria /hpf Urine Casts 06/01/24 06/01/24 06/01/24 Range/Units 17:42 17:42 17:42 WBC (4.5-10.0) K/mm3 RBC (4.2-5.4) M/mm3 Hgb (12.0-15.0) g/dL Hct (37.0-47.0) % MCV (80-100) fl MCH (26-34) pg MCHC (32-36) g/dl RDW (11.5-14.5) % Plt Count (150-375) k/mm3 MPV (7.4-10.4) fl Immature Gran % (Auto) (0-0.5) % Neut % (Auto) (45.5-73.1) % Lymph % (Auto) (18.3-44.2) % [place] % (Auto) (2.6-8.5) % Eos % (Auto) (0-4.4) % Baso % (Auto) (0.2-1.2) % Lymph # (Auto) (0.9-3.2) K/mm3 [place] # (Auto) (0.1-0.6) K/mm3 Eos # (Auto) (0-0.3) K/mm3 Baso # (Auto) (0.0-0.1) K/mm3 Abs Immat Gran (auto) (0.00-0.031) K/mm3 Absolute Neuts (auto) (1.3-6.7) K/mm3 Absolute Nucleated RBC (0.0-0.012) K/mm3 Nucleated RBC % (0.0-0.2) % PT (11.1-14.7) Seconds INR APTT (22.3-36.8) Seconds Sodium Potassium Chloride Carbon Dioxide Anion Gap 1 L BUN Cancelled 28 H Creatinine Cancelled 1.40 H Estim Creat Clear Calc Cancelled Estimated GFR Glucose POC Capillary Glucose (65-105) mg/dl Lactic Acid (0.7-2.0) mmol/L Calcium Magnesium (1.6-2.3) mg/dL Total Creatine Kinase (30-135) U/L Troponin I (0.000-0.034) ng/mL Urine Color (Yellow) Urine Appearance (Clear) Urine pH (5.0-9.0) Ur Specific [place] (1.001-1.035) Urine Protein (Negative) mg/dL Urine Glucose (UA) (Negative) mg/dL Urine Ketones (Negative) mg/dL Ur Blood (Man) (Negative) Urine Nitrate (Negative) Urine Bilirubin (Negative) Urine Urobilinogen (<2.0) mg/dL Leukocyte Esterase Rfl (Negative) JOSE MANUEL/UL Urine RBC (0-2) /hpf Urine WBC (0-3) /hpf Ur Squamous Epith Cells (Few) /hpf Urine Bacteria /hpf Urine Casts 06/01/24 06/01/24 06/01/24 Range/Units 17:42 17:42 17:42 WBC (4.5-10.0) K/mm3 RBC (4.2-5.4) M/mm3 Hgb (12.0-15.0) g/dL Hct (37.0-47.0) % MCV (80-100) fl MCH (26-34) pg MCHC (32-36) g/dl RDW (11.5-14.5) % Plt Count (150-375) k/mm3 MPV (7.4-10.4) fl Immature Gran % (Auto) (0-0.5) % Neut % (Auto) (45.5-73.1) % Lymph % (Auto) (18.3-44.2) % [place] % (Auto) (2.6-8.5) % Eos % (Auto) (0-4.4) % Baso % (Auto) (0.2-1.2) % Lymph # (Auto) (0.9-3.2) K/mm3 [place] # (Auto) (0.1-0.6) K/mm3 Eos # (Auto) (0-0.3) K/mm3 Baso # (Auto) (0.0-0.1) K/mm3 Abs Immat Gran (auto) (0.00-0.031) K/mm3 Absolute Neuts (auto) (1.3-6.7) K/mm3 Absolute Nucleated RBC (0.0-0.012) K/mm3 Nucleated RBC % (0.0-0.2) % PT (11.1-14.7) Seconds INR APTT (22.3-36.8) Seconds Sodium Potassium Chloride Carbon Dioxide Anion Gap BUN Creatinine Estim Creat Clear Calc 33 Estimated GFR Cancelled 36 L Glucose Cancelled 128 H POC Capillary Glucose (65-105) mg/dl Lactic Acid 1.6 (0.7-2.0) mmol/L Calcium Cancelled Magnesium (1.6-2.3) mg/dL Total Creatine Kinase (30-135) U/L Troponin I (0.000-0.034) ng/mL Urine Color (Yellow) Urine Appearance (Clear) Urine pH (5.0-9.0) Ur Specific [place] (1.001-1.035) Urine Protein (Negative) mg/dL Urine Glucose (UA) (Negative) mg/dL Urine Ketones (Negative) mg/dL Ur Blood (Man) (Negative) Urine Nitrate (Negative) Urine Bilirubin (Negative) Urine Urobilinogen (<2.0) mg/dL Leukocyte Esterase Rfl (Negative) JOSE MANUEL/UL Urine RBC (0-2) /hpf Urine WBC (0-3) /hpf Ur Squamous Epith Cells (Few) /hpf Urine Bacteria /hpf Urine Casts 06/01/24 06/01/24 Range/Units 17:42 18:47 WBC (4.5-10.0) K/mm3 RBC (4.2-5.4) M/mm3 Hgb (12.0-15.0) g/dL Hct (37.0-47.0) % MCV (80-100) fl MCH (26-34) pg MCHC (32-36) g/dl RDW (11.5-14.5) % Plt Count (150-375) k/mm3 MPV (7.4-10.4) fl Immature Gran % (Auto) (0-0.5) % Neut % (Auto) (45.5-73.1) % Lymph % (Auto) (18.3-44.2) % [place] % (Auto) (2.6-8.5) % Eos % (Auto) (0-4.4) % Baso % (Auto) (0.2-1.2) % Lymph # (Auto) (0.9-3.2) K/mm3 [place] # (Auto) (0.1-0.6) K/mm3 Eos # (Auto) (0-0.3) K/mm3 Baso # (Auto) (0.0-0.1) K/mm3 Abs Immat Gran (auto) (0.00-0.031) K/mm3 Absolute Neuts (auto) (1.3-6.7) K/mm3 Absolute Nucleated RBC (0.0-0.012) K/mm3 Nucleated RBC % (0.0-0.2) % PT (11.1-14.7) Seconds INR APTT (22.3-36.8) Seconds Sodium Potassium Chloride Carbon Dioxide Anion Gap BUN Creatinine Estim Creat Clear Calc Estimated GFR Glucose POC Capillary Glucose 195 H (65-105) mg/dl Lactic Acid (0.7-2.0) mmol/L Calcium 9.6 Magnesium 2.1 (1.6-2.3) mg/dL Total Creatine Kinase 386 H (30-135) U/L Troponin I < 0.012 (0.000-0.034) ng/mL Urine Color Yellow (Yellow) Urine Appearance Clear (Clear) Urine pH 5.5 (5.0-9.0) Ur Specific [place] 1.009 (1.001-1.035) Urine Protein Negative (Negative) mg/dL Urine Glucose (UA) Trace H (Negative) mg/dL Urine Ketones Negative (Negative) mg/dL Ur Blood (Man) Negative (Negative) Urine Nitrate Negative (Negative) Urine Bilirubin Negative (Negative) Urine Urobilinogen 0.2 (<2.0) mg/dL Leukocyte Esterase Rfl Trace H (Negative) JOSE MANUEL/UL Urine RBC 3-5 H (0-2) /hpf Urine WBC 11-20 H (0-3) /hpf Ur Squamous Epith Cells None seen (Few) /hpf Urine Bacteria None seen /hpf Urine Casts 3-5 Imaging Data Attestation: I personally reviewed and interpreted this imaging study as follows: Radiologist's impression: ITS Impressions Head CT 06/01/24 18:37 IMPRESSION: No acute intracranial findings. Cervical Spine CT 06/01/24 18:42 IMPRESSION: No acute osseous abnormality cervical spine. Lumbar Spine CT 06/01/24 18:51 IMPRESSION: No acute osseous abnormality. Multilevel degenerative disc disease. Pelvis CT 06/01/24 19:03 IMPRESSION: No fracture or dislocation. Diverticulosis of the sigmoid colon. Fat-containing abdominal wall hernia. ECG Data EKG #1: Attestation: I personally reviewed and interpreted this ECG as follows: ECG completion date: 06/01/24 ECG completion time: 17:23 EKG Interpretation: normal rate (64), sinus rhythm and non-specific ST changes Discharge Plan Discharge Clinical Impression: Syncope and collapse, Hypoglycemia, ARNOLD (acute kidney injury), Elevated CK, Abnormal urinalysis Patient Disposition: Still a Patient Condition: Stable
[2024-06-01 17:48] LABS: Glucose Point of Care 112 mg/dl (65-105)
[2024-06-01 17:51] LABS: Basophils Absolute Auto 0.1 K/mm3 (0.0-0.1); Basophils Percent Auto 0.4 % (0.2-1.2); Eosinophils Absolute Auto 0.1 K/mm3 (0-0.3); Eosinophils Percent Auto 1.1 % (0-4.4); Hematocrit 35.7 % (37.0-47.0); Hemoglobin 10.7 g/dL (12.0-15.0); Immature Granulocyte Percent A 0.8 % (0-0.5); Lymphocytes Absolute Auto 0.68 K/mm3 (0.9-3.2); Lymphocytes Percent Auto 5.5 % (18.3-44.2); Mean Corpuscular Hemoglobin 29.5 pg (26-34); Mean Corpuscular Volume 98.3 fl (80-100); Monocytes Absolute Auto 0.4 K/mm3 (0.1-0.6); Monocytes Percent Auto 3.1 % (2.6-8.5); Neutrophils Absolute Auto 10.9 K/mm3 (1.3-6.7); Neutrophils Percent Auto 89.1 % (45.5-73.1); Platelet Count Result 282 k/mm3 (150-375); Red Blood Count 3.63 M/mm3 (4.2-5.4); Red Cell Distribution Width 16.9 % (11.5-14.5); White Blood Count 12.3 K/mm3 (4.5-10.0)
[2024-06-01 17:57] LABS: Add Urine Microscopic? YES; Appearance Urine Clear (Clear); Bacteria Urine None Seen /hpf; Bilirubin Urine Negative (Negative); Blood Urine Negative (Negative); Color Urine Yellow (Yellow); Glucose Urine UA Trace mg/dL (Negative); Ketones Urine Negative (Negative); Leukocyte Esterase Ur Trace LEU/UL (Negative); Nitrate Urine Negative (Negative); Protein Urine Negative (Negative); Specific Grav Ur 1.009 (1.001-1.035); Squamous Epithelial Cell Urine None Seen /hpf (Few); Urobilinogen Urine 0.2 mg/dL (<2.0); pH Urine 5.5 (5.0-9.0)
[2024-06-01 18:00] LABS: Anion Gap 1 mmol/L (4-12); Blood Urea Nitrogen 28 mg/dL (7-17); Calcium 9.6 mg/dL (8.4-10.2); Carbon Dioxide 29 mmol/L (22-30); Chloride 110 mmol/L (98-107); Estimated CRCL calculation 33 ml/min; Estimated Glomerular Filt Rate 36; Glucose 128 mg/dL (65-110); INR 1.1; Magnesium 2.1 mg/dL (1.6-2.3); Prothrombin Time 14.6 Seconds (11.1-14.7); Sodium 140 mmol/L (137-145)
[2024-06-01 18:01] LABS: Lactic Acid Reflex 1.6 mmol/L (0.7-2.0); Partial Thromboplastin Time 26.8 Seconds (22.3-36.8)
[2024-06-01 18:12] LABS: Troponin I < 0.012 ng/mL (0.000-0.034)
[2024-06-01 18:30] LABS: Creatine Kinase 386 U/L (30-135)
[2024-06-01] MEDS: SODIUM CHLORIDE 0.9% IV 1,000 ML 999 ML IV CONT ×2 (18:41→18:54)
[2024-06-01 18:52] LABS: Glucose Point of Care 195 mg/dl (65-105)
--- NOTE | 2024-06-01 20:22 | P.HP_ITS ---
H&P: HPI History of Present Illness Date/Time: 06/01/24 20:22 Chief Complaint: Altered mental status Narrative: This is an 79-year-old female with past medical history significant for morbid obesity, coronary artery disease, mi, hypertension, insulin-dependent diabetes mellitus, gout, dyslipidemia, obstructive sleep apnea. Patient was brought to the emergency room after she was found down at home. Patient has no recollection of events most of the history has been obtained from daughters were at bedside. Patient states that she has been having night sweats chills and fevers has had poor per orally intake. Patient found to have low blood sugar. A urinalysis was significant for 11-20 WBCs, CK 386, creatinine 1.4. CT brain wo con Ordering provider: Esperanza Aquino PA-C History: 79 years Female with . syncope . Comparison: None. Technique: CT of the head without contrast. Radiation reduction technique utilized.The dose-length product was 605.33 mGy- cm. FINDINGS: BRAIN PARENCHYMA AND CSF SPACES: Mild leukoaraiosis and diffuse cortical atrophy. Mild atheromatous disease. No midline shift, mass effect or hemorrhage. The brain parenchyma and CSF spaces are otherwise normal. VISUALIZED PARANASAL SINUSES: Well aerated. MASTOIDS: Well aerated. BONES: The bones appear intact. SOFT TISSUES: Visualized nasopharynx is normal. Superficial soft tissues are normal. IMPRESSION: No acute intracranial findings. CT pelvis wo con Ordering provider: Esperanza Aquino PA-C History: . fall, lbp, l hip pain . Comparison: None. Technique: CT pelvis without oral and IV contrast. . Automated exposure control and iterative reconstruction technique were employed. The dose-length product was 908.91 mGy-cm. Findings: BONES: No pelvic fracture or hip dislocation. Age appropriate degenerative changes of the visualized lower lumbar spine. Left sacroiliitis. The hip joint spaces are narrowed bilaterally. Pubic symphysitis. SUPERFICIAL SOFT TISSUES: Fat stranding in the anterior abdominal wall. Fat- containing abdominal wall hernia. PELVIC ORGANS: The bladder is normal. Bilateral iliac stents. Diverticulosis of the colon. VISUALIZED BOWEL AND MESENTERY: Normal. No free air or free fluid. No lymphadenopathy. RETROPERITONEUM: Mild atheromatous disease. IMPRESSION: No fracture or dislocation. Diverticulosis of the sigmoid colon. Fat-containing abdominal wall hernia. Review of Systems Review of Systems: Altered mental status, low blood sugar, syncope [facility] Past Medical History Medical History PADMINI (obstructive sleep apnea) Diabetes mellitus CAD (coronary artery disease) Hx of ND with Stent x2 Essential hypertension, benign Hyperlipidemia Hx of intestinal obstruction 2000 Incarcerated incisional hernia s/p adhesiolysis and hernia repair May 2003 Surgical History Surgical History History of bladder surgery Hx of hysterectomy Hx of lumpectomy nonmalignant in 1990 Family History Family History Grandparent Breast cancer Father Congestive heart failure Diabetes mellitus Hypertension Social History Social History Social History: She lives with her daughter and grandson. She is . No alcohol use. Currently a nonsmoker. No drug use. She wishes to be a DNR. She nominated her daughter Summer Nam to be the individual who would make medical decisions for her if she is unable. Smoking packs per day: 0.5 Smoking cigarettes per day: 10.0 Years smoked: 25 Smoking pack-years: 12.50 Smoking status: Never smoker Alcohol intake: never Substance use: never Do You Feel Safe in your Home?: Yes Lack of Transportation: No Lack of Food: Never True Current Housing: I Have Housing Concerned About Future Housing: No Difficulty Paying Gas/Electric Bills: No Difficulty Paying for Meds: No Currently Unemployed: No Education: High School Diploma/GED Difficulty w/ Childcare or Family Care: No Spiritual care concerns: No Meds Home Medications and Allergies Home Medications ?Medication ?Instructions ?Recorded ?Confirmed ?Type acetaminophen 500 mg capsule 1,000 mg PO TID PRN Pain (Scale 10/03/20 06/02/24 History Score 1-3) aspirin 81 mg tablet 81 mg PO DAILY 10/03/20 06/02/24 History atorvastatin 40 mg tablet 40 mg PO DAILY 10/03/20 06/02/24 History bupropion HCl 75 mg tablet 75 mg PO BID 10/03/20 06/02/24 History calcium carbonate (Calcium 600) 600 mg PO DAILY 10/03/20 06/02/24 History carvedilol 25 mg tablet 25 mg PO BID 10/03/20 06/02/24 History clopidogrel 75 mg tablet 75 mg PO DAILY 10/03/20 06/02/24 History cyanocobalamin (vitamin B-12) 500 500 mcg PO BID 10/03/20 06/02/24 History mcg tablet (Vitamin B-12) febuxostat 40 mg tablet 40 mg PO DAILY 10/03/20 06/02/24 History furosemide 20 mg tablet 20 mg PO DAILY 10/03/20 06/02/24 History glimepiride 4 mg tablet 4 mg PO BIDWM 10/03/20 06/02/24 History insulin glargine 100 unit/mL 35 unit subcut BID 10/03/20 06/02/24 History subcutaneous solution (Lantus U-100 Insulin) [id number]-[id number]-[id number]-FA-Ca carb-vit K 1 tablet PO DAILY 10/03/20 06/02/24 History 18 mg iron-400 mcg-500 mg tablet (One-A-Day Womens Formula) niacin 500 mg tablet 500 mg PO DAILY 10/03/20 06/02/24 History potassium chloride 10 mEq 10 meq PO DAILY 10/03/20 06/02/24 History tablet,extended release(part/cryst) sacubitril 49 mg-valsartan 51 mg 1 tablet PO BID 10/03/20 06/02/24 History tablet (Entresto) allopurinol 300 mg tablet 300 mg PO DAILY 06/02/24 06/02/24 History dapagliflozin propanediol 10 mg 10 mg PO DAILY 06/02/24 06/02/24 History tablet (Farxiga) Allergies Allergy/AdvReac Type Severity Reaction Status Date / Time No Known Allergies Allergy Mild Verified 10/03/20 06:23 Vital Signs Vital Signs - 24 hr 06/01/24 17:13 06/01/24 17:16 06/01/24 17:18 Temperature 97.9 F Pulse Rate 64 64 70 Respiratory Rate 18 14 15 Blood Pressure 94/40 L Pulse Oximetry 97 95 95 Oxygen Delivery Room Air 06/01/24 17:22 06/01/24 17:25 06/01/24 17:30 Temperature Pulse Rate 65 73 Respiratory Rate 23 H 14 Blood Pressure 89/67 L Pulse Oximetry 94 96 95 Oxygen Delivery Room Air 06/01/24 17:31 06/01/24 17:48 06/01/24 18:38 Temperature Pulse Rate 76 64 69 Respiratory Rate 13 13 14 Blood Pressure 97/42 L 111/53 L Pulse Oximetry 97 95 97 Oxygen Delivery Exam Narrative: lying in stretcher Const: General: cooperative, comfortable, no acute distress, well developed, alert, awake, ill appearing chronically and obese Nutritional Appearance: obese morbidly obese Orientation/consciousness: patient oriented x3 HENMT: Head: normal to inspection, normocephalic and atraumatic Ears: hearing grossly normal bilaterally Face/Nose/Sinus: normal facial exam Face and sinus: normal facial exam Eyes: General: appearance normal, both eyes and all related structures Pupils: Equal, round and reactive pupils present EOM: EOMs intact bilaterally Neck: Neck: full ROM, no lymphadenopathy and no JVD Thyroid: thyroid normal Lymphatic: no lymphadenopathy noted Resp: Effort & Inspection: normal respiratory effort and able to speak in complete sentences Auscultation: clear to auscultation bilaterally Cardio: Jugular venous distension: no JVD Rate: regular rate Rhythm: regular rhythm Heart sounds: S1 normal heart sound present and S2 normal heart sound present GI: Inspection: Pannus present and obesity GI Palp: Yes Soft to palpation and Yes No hepatosplenomegaly present : General: Yes deferred Skin: Rashes: no rashes Wounds: wounds noted (RLE ulcer) Neuro: General: patient oriented x3 and CN's II-XI intact bilaterally Cranial nerves: Yes CN's II-XII intact bilaterally and Yes Equal, round and reactive pupils present Cognition (Neuro): normal cognition Speech: normal speech Gait exam (Neuro): Unable to assess gait Motor exam (neuro): 5/5 motor strength present throughout Extrem: General: normal to inspection, full ROM, no joint enlargement and no pedal edema H&P: Results Labs Labs: Short CBC 06/01/24 Range/Units 17:42 WBC 12.3 H (4.5-10.0) K/mm3 Hgb 10.7 L (12.0-15.0) g/dL Hct 35.7 L (37.0-47.0) % Plt Count 282 (150-375) k/mm3 BMP 06/01/24 06/01/24 06/01/24 17:42 17:42 17:42 Sodium Cancelled 140 Potassium Cancelled 4.0 Chloride Cancelled Carbon Dioxide BUN Creatinine Glucose Calcium 06/01/24 06/01/24 06/01/24 17:42 17:42 17:42 Sodium Potassium Chloride 110 H Carbon Dioxide Cancelled 29 BUN Cancelled 28 H Creatinine Cancelled Glucose Calcium 06/01/24 06/01/24 06/01/24 17:42 17:42 17:42 Sodium Potassium Chloride Carbon Dioxide BUN Creatinine 1.40 H Glucose Cancelled 128 H Calcium Cancelled 9.6 Cardiac Enzymes 06/01/24 Range/Units 17:42 Total Creatine Kinase 386 H (30-135) U/L Troponin I < 0.012 (0.000-0.034) ng/mL Urine 06/01/24 Range/Units 17:42 Urine Color Yellow (Yellow) Urine Appearance Clear (Clear) Urine pH 5.5 (5.0-9.0) Ur Specific [place] 1.009 (1.001-1.035) Urine Protein Negative (Negative) mg/dL Urine Glucose (UA) Trace H (Negative) mg/dL Assessment and Plan Assessment and plan (1) Elevated CK: Code(s): R74.8 - Abnormal levels of other serum enzymes Status: Acute Assessment and Plan: Will hold statin Likely secondary to fall Unknown time patient holds laying on the floor Gentle hydration Continue to monitor CK (2) UTI (urinary tract infection): Code(s): N39.0 - Urinary tract infection, site not specified Status: Acute Assessment and Plan: Patient started on Rocephin (3) ARNOLD (acute kidney injury): Code(s): N17.9 - Acute kidney failure, unspecified Status: Acute Assessment and Plan: Will hold Entresto Gentle hydration (4) Hypoglycemia: Code(s): E16.2 - Hypoglycemia, unspecified Status: Acute Assessment and Plan: Holding oral hypoglycemics Okay to continue dc (5) Syncope and collapse: Code(s): R55 - Syncope and collapse Status: Acute Assessment and Plan: Patient likely to have had hypoglycemic episode as blood sugar was low (6) Leg wound, right: Code(s): S81.801A - Unspecified open wound, right lower leg, initial encounter Status: Acute Assessment and Plan: Local care Wound care consult (7) Essential hypertension, benign: Code(s): I10 - Essential (primary) hypertension Status: Acute Assessment and Plan: Currently holding Entresto Holding carvedilol Restart as needed (8) CAD (coronary artery disease): Code(s): I25.10 - Atherosclerotic heart disease of [place] coronary artery without angina pectoris Status: Acute Assessment and Plan: Continue Lipitor and Plavix and aspirin (9) PADMINI (obstructive sleep apnea): Code(s): G47.33 - Obstructive sleep apnea (adult) (pediatric) Status: Acute Assessment and Plan: CPAP at nighttime (10) Morbid obesity with BMI of 45.0-49.9, adult: Code(s): E66.01 - Morbid (severe) obesity due to excess calories; Z68.42 - Body mass index [BMI] 45.0-49.9, adult Status: Acute Assessment and Plan: 1800 calorie restricted diet (11) CHF (congestive heart failure): Code(s): I50.9 - Heart failure, unspecified Status: Acute Assessment and Plan: Daily intake and output (12) Acute kidney injury superimposed on CKD: Code(s): N17.9 - Acute kidney failure, unspecified; N18.9 - Chronic kidney disease, unspecified Status: Acute Assessment and Plan: Likely to be pre renal Holding Entresto Holding Lasix Continue to monitor Daily BMP Hospitalist MIPS Advance Care Plan I have confirmed that the patient's Advanced Care Plan is present, code status is documented, or surrogate decision maker is listed in patient medical record.: Yes Medication Reconciliation I have utilized all available resources to obtain, update and review the patients current medications (includes all prescriptions, OTC, herbals, cannabis , and nutritional supplements).: Yes
[2024-06-01 22:08] LABS: Glucose Point of Care 247 mg/dl (65-105)
[2024-06-02] VITALS (18 sets, daily range): BP systolic 103–119; BP diastolic 39–51; PULSE 77–92; RESP 14–20; TEMP 36.4–37.2; O2SAT 94–97; BMI 39.4
--- NOTE | 2024-06-02 | ECHO_ITS ---
Patient Info Name: Juani Nam Age: 79 years : 1945 Gender: Female Ht: 62 in Wt: 216 lbs BSA: 2.12 m2 HR: 84 bpm BP: 103 / 42 mmHg Heart Rhythm: Sinus Rhythm Technical Quality: Fair Exam Date: 06/02/2024 1:38 PM Exam Location: Echo Lab Patient Status: Inpatient Admit Date: 06/01/2024 Staff Ordering Physician: Bairon Estrada MD Buttermaker: Kera Palafox RDCS Attending Provider: Donnie Echeverria MD Referring Physician: BILLIE; Exam Type: CA echo doppler color flow Study Info Complete two-dimensional, color flow and Doppler transthoracic echocardiogram is performed. Summary 1. Complete two-dimensional, color flow and Doppler transthoracic echocardiogram is performed. 2. Left ventricular chamber dimension is mildly enlarged. 3. Left ventricular systolic function is normal, estimated at 50-55%. 4. There is no increased left ventricular wall thickness. 5. The left ventricular diastolic function is grade I diastolic dysfunction. 6. The inferior wall, basal inferoseptal, mid inferoseptal, basal inferolateral wall, and mid inferolateral wall are hypokinetic. 7. Left atrial chamber dimension is mildly enlarged. 8. There is mild mitral valve regurgitation. 9. There is mild tricuspid valve regurgitation. 10. The aortic root size at the sinus of Valsalva is mildly dilated. Left Ventricle Left ventricular chamber dimension is mildly enlarged. Left ventricular systolic function is normal, estimated at 50-55%. There is no increased left ventricular wall thickness. The left ventricular diastolic function is grade I diastolic dysfunction. The inferior wall, basal inferoseptal, mid inferoseptal, basal inferolateral wall, and mid inferolateral wall are hypokinetic. All other dickey appear normal. Right Ventricle Right ventricular chamber dimension is normal. Right ventricular systolic function is normal. Linear artifact in right ventricle suggestive of catheter(s), pacemaker lead(s), or ICD lead(s). Left Atria Left atrial chamber dimension is mildly enlarged. Right Atria Right atrial chamber dimension is normal. Atrial Septum Intact interatrial septum visualized by color flow imaging. Aortic Valve The aortic valve is trileaflet. There is mild aortic valve sclerosis. There is no aortic valve stenosis. There is trace aortic valve regurgitation. Pulmonic Valve The pulmonic valve is normal. There is no pulmonic valve stenosis. There is trace pulmonic regurgitation. Mitral Valve The mitral valve has calcified annulus. There is no mitral valve stenosis. There is mild mitral valve regurgitation. Tricuspid Valve The tricuspid valve leaflets are normal. There is no significant tricuspid valve stenosis. There is mild tricuspid valve regurgitation. No pulmonary hypertension, estimated pulmonary arterial systolic pressure is 31 mmHg. Pericardium/Pleural The pericardium appears normal. There is no pericardial effusion. Inferior Vena Cava Normal inferior vena cava with >50% collapse upon inspiration consistent with normal right atrial pressure, 5 mmHg. Aorta The aortic root size at the sinus of Valsalva is mildly dilated. Left Ventricular Outflow Tract Name Value Normal LVOT 2D LVOT Diameter 2.2 cm LVOT Doppler LVOT Peak Gradient 6 mmHg LVOT Mean Gradient 3 mmHg LVOT VTI 26 cm LVOT VTI/AV VTI Ratio 0.7 LVOT Stroke Volume 97 ml LVOT CO 7.8 l/min LVOT CI 3.7 l/min/m2 Pulmonic Valve Name Value Normal PV Doppler PV Peak Gradient 5 mmHg Mitral Valve Name Value Normal MV Doppler MV Peak Gradient 9 mmHg MV Mean Gradient 4 mmHg MV Decel Powell 743 cm/s2 MV PHT 51 ms MV Area (PHT) 4.3 cm2 4.0-5.0 MV Area (Cont Eq VTI) 2.6 cm2 MV Diastolic Function MV E Peak Velocity 130 cm/s MV A Peak Velocity 136 cm/s MV E/A 1.0 MV Decel Time 175 ms MV Annular TDI MV E/e' (Septal) 23.4 <=8.0 MV E/e' (Lateral) 11.3 <=8.0 MV E/e' (Average) 17.4 Tricuspid Valve Name Value Normal TV Regurgitation Doppler TR Peak Velocity 253 cm/s TR Peak Gradient 26 mmHg Estimated PAP/RSVP RA Pressure 5 mmHg <=5 PA Systolic Pressure 31 mmHg <36 RV Systolic Pressure 31 mmHg <36 Aortic Valve Name Value Normal AV Doppler AV Peak Velocity 159 cm/s AV Peak Gradient 10 mmHg AV Mean Gradient 5 mmHg AV VTI 35 cm AV Area (Cont Eq VTI) 2.8 cm2 >=3.0 AV Area (Cont Eq Frank) 3.0 cm2 AV Regurgitation 2D LVOT Area 3.7 cm2 Ventricles Name Value Normal LV Dimensions 2D/MM IVS Diastolic Thickness (2D) 0.7 cm 0.6-1.0 LVID Diastole (2D) 5.3 cm 3.8-5.2 LVIW Diastolic Thickness (2D) 0.8 cm 0.6-0.9 LVID Systole (2D) 4.4 cm 2.2-3.5 LVOT Diameter 2.2 cm LV Mass (2D Cubed) 147.74 g 67.00-162.00 LV Mass Index (2D Cubed) 70 g/m2 43-95 Relative Wall Thickness (2D) 0.32 LV Fractional Shortening/Ejection Fraction 2D/MM LV Fractional Shortening (2D) 16 % 27-45 LV EF (2D Teicholz) 34 % 54-74 LV Diastolic Volume (4C MOD) 184 ml LV EF (4C MOD) 49 % LV Diastolic Length (4C) 9.3 cm LV Systolic Length (4C) 8.0 cm LV Stroke Volume (4C MOD) 91 ml Atria Name Value Normal LA Dimensions LA Volume (4C A-L) 84 ml RA Dimensions RA Area (4C) 17.7 cm2 <=18.0 Wall Motion Scoring Wall Motion Scoring Index: 1.41 Report Signatures
--- NOTE | 2024-06-02 00:25 | ADMGEN ---
This patient, Juani Nam, was admitted to IMU Room 212-01. Patient/family oriented to hospital policies and general routines including ID bracelet, bed and alarms, visiting hours, pain management, procedures, bathroom and other care routines, personal items, smoking policy, room service/diet, and visiting hours. Information on how to activate the Rapid Response Team has been discussed. Patient/Family are encouraged to report perceived risks to care and to ask questions if they do not understand what they are told or what they should do.
[2024-06-02 00:33] LABS: Glucose Point of Care 228 mg/dl (65-105)
[2024-06-02 01:57] LABS: Troponin I 0.018 ng/mL (0.000-0.034)
[2024-06-02 02:00] LABS: Glucose Point of Care 170 mg/dl (65-105)
[2024-06-02] MEDS: ACETAMINOPHEN 325 MG TABLET 650 MG PO (02:00)
--- NOTE | 2024-06-02 02:41 | ADMGEN ---
This patient, Juani Nam, was admitted to IMU Room 212-01 on 06/02/24 at 0025. Patient/family oriented to hospital policies and general routines including ID bracelet, bed and alarms, visiting hours, pain management, procedures, bathroom and other care routines, personal items, smoking policy, room service/diet, and visiting hours. Information on how to activate the Rapid Response Team has been discussed. Patient/Family are encouraged to report perceived risks to care and to ask questions if they do not understand what they are told or what they should do.
[2024-06-02 04:54] LABS: Hematocrit 32.2 % (37.0-47.0); Hemoglobin 9.8 g/dL (12.0-15.0); Mean Corpuscular HGB Conc 30.4 g/dl (32-36); Mean Corpuscular Hemoglobin 29.7 pg (26-34); Mean Corpuscular Volume 97.6 fl (80-100); Platelet Count Result 243 k/mm3 (150-375); Red Cell Distribution Width 16.7 % (11.5-14.5); White Blood Count 10.4 K/mm3 (4.5-10.0)
[2024-06-02 05:16] LABS: Alanine Aminotransferase 18 U/L (6-35); Albumin Level 3.2 g/dL (3.5-5.1); Alkaline Phosphatase 91 U/L (38-126); Anion Gap 3 mmol/L (4-12); Aspartate Amino Transferase 43 U/L (14-36); Bilirubin,Total 0.4 mg/dL (0.2-1.3); Blood Urea Nitrogen 32 mg/dL (7-17); Calcium 8.8 mg/dL (8.4-10.2); Carbon Dioxide 24 mmol/L (22-30); Chloride 113 mmol/L (98-107); Estimated CRCL calculation 33 ml/min; Estimated Glomerular Filt Rate 39; Glucose 117 mg/dL (65-110); Sodium 140 mmol/L (137-145)
[2024-06-02 05:24] LABS: Creatine Kinase 404 U/L (30-135)
[2024-06-02 08:22] LABS: Glucose Point of Care 46 mg/dl (65-105)
--- NOTE | 2024-06-02 08:31 | P.PNIM_ITS ---
Progress Note: A&P Assessment and Plan (1) Elevated CK: Code(s): R74.8 - Abnormal levels of other serum enzymes Status: Acute (2) UTI (urinary tract infection): Code(s): N39.0 - Urinary tract infection, site not specified Status: Acute (3) ARNOLD (acute kidney injury): Code(s): N17.9 - Acute kidney failure, unspecified Status: Acute (4) Hypoglycemia: Code(s): E16.2 - Hypoglycemia, unspecified Status: Acute (5) Syncope and collapse: Code(s): R55 - Syncope and collapse Status: Acute (6) Leg wound, right: Code(s): S81.801A - Unspecified open wound, right lower leg, initial encounter Status: Acute (7) Essential hypertension, benign: Code(s): I10 - Essential (primary) hypertension Status: Acute (8) CAD (coronary artery disease): Code(s): I25.10 - Atherosclerotic heart disease of [place] coronary artery without angina pectoris Status: Acute (9) PADMINI (obstructive sleep apnea): Code(s): G47.33 - Obstructive sleep apnea (adult) (pediatric) Status: Acute (10) Morbid obesity with BMI of 45.0-49.9, adult: Code(s): E66.01 - Morbid (severe) obesity due to excess calories; Z68.42 - Body mass index [BMI] 45.0-49.9, adult Status: Acute (11) CHF (congestive heart failure): Code(s): I50.9 - Heart failure, unspecified Status: Acute (12) Acute kidney injury superimposed on CKD: Code(s): N17.9 - Acute kidney failure, unspecified; N18.9 - Chronic kidney disease, unspecified Status: Acute Plan Patient is an 79-year-old female, with PMH of CAD s/p coronary stenting on plavix, DM, CHF, who presents the ED via EMS with report of syncope and hypoglycemia. Per family at bedside, daughter came home to find patient on the ground altered and confused. EMS was notified. Patient was found to be hypo glycemic with a blood sugar in the 40s. She does have history of frequent hypoglycemic episodes. She is on glimepiride, farxiga And Lantus. Patient states the last thing she remembers is waking up on the ground. Daughter is unsure how long she was on the ground. She states it appeared as though she was cooking lunch, but is unsure what time this was. Patient complains of pain to her lower back and left hip, generalized weakness. Denies dizziness, lightheadedness, focal weakness, vision changes, headache, chest pain, shortness of breath. Blood sugar upon arrival to the ED was 112. Vital signs Showed borderline blood pressure. Received IV fluids. EKG without acute ST-T changes. Laboratory evaluation showed WBC of 12.3 mild anemia consistent with previous records. CMP with stable electrolytes creatinine slightly bumped to 1.4 baseline around 1.1 per records. Blood sugar on lab will 128. Lactic acid was normal at 1.6. Magnesium normal troponin was undetectable. CK mildly elevated at 386. UA with trace leukocytes today is 11-20 white cell. Urine culture sent. CT head negative for any acute intracranial abnormality. Cervical spine negative. CT pelvis and lumbar spine without any acute findings. Workup for syncope with telemetry monitoring. Likely related to hypoglycemia and/or hypotension. Continue IV fluids hypoglycemia: Hold glimepiride and Lantus. Check A1c. Will also hold Farxiga Mild rhabdomyolysis hold statin UTI Hypertension mild hold blood pressure medication Entresto furosemide. Continue carvedilol for now Coronary artery disease status post stents Type 2 diabetes on insulin Congestive heart failure chronic systolic/ diastolic. Echo 2020 EF 35-40% with grade 1 diastolic dysfunction. Recheck echo Morbid obesity Hypertension Hyperlipidemia Gout Obstructive sleep apnea DVT prophylaxis Lovenox Code status full code Subjective Date/time seen: 06/02/24 08:31 Interval history: no overnight events. No new complaints. Doing well. No nausea vomiting. Back to her baseline. Review of Systems Review of Systems: All systems reviewed & are unremarkable except as noted in HPI and below Exam Narrative: GENERAL: Elderly, morbidly obese with BMI of 44.0, non-toxic, in no acute distress. HEAD: Normocephalic, atraumatic. RESPIRATORY: Airway patent, respirations nonlabored. Clear to auscultation bilaterally, no rales, rhonchi, wheezing. CARDIOVASCULAR: Regular rate and rhythm without murmurs, rubs, or gallops. ABDOMINAL: Soft, nontender, nondistended. Normoactive BS. MUSCULOSKELETAL: Moves all extremities. No gross deformities. SKIN: Warm, dry, normal color. NEURO: A&O X3. Speech clear. Cranial nerves II-XII grossly intact. Steady gait. No ataxic movements. No focal deficits. PSYCHIATRIC: Appropriate mood and affect. Normal interaction. Objective Data Vital Signs Vital Signs: Vital Signs - 24 hr 06/01/24 17:13 06/01/24 17:16 06/01/24 17:18 Temperature 97.9 F Pulse Rate 64 64 70 Respiratory Rate 18 14 15 Blood Pressure 94/40 L Pulse Oximetry 97 95 95 Oxygen Delivery Room Air 06/01/24 17:22 06/01/24 17:25 06/01/24 17:30 Temperature Pulse Rate 65 73 Respiratory Rate 23 H 14 Blood Pressure 89/67 L Pulse Oximetry 94 96 95 Oxygen Delivery Room Air 06/01/24 17:31 06/01/24 17:48 06/01/24 18:38 Temperature Pulse Rate 76 64 69 Respiratory Rate 13 13 14 Blood Pressure 97/42 L 111/53 L Pulse Oximetry 97 95 97 Oxygen Delivery 06/01/24 18:57 06/01/24 19:00 06/01/24 19:01 Temperature Pulse Rate 67 65 62 Respiratory Rate 13 13 14 Blood Pressure 106/53 L Pulse Oximetry 94 93 97 Oxygen Delivery 06/01/24 19:16 06/01/24 20:01 06/01/24 20:31 Temperature Pulse Rate 64 67 69 Respiratory Rate 13 15 16 Blood Pressure 103/81 93/58 L 106/48 L Pulse Oximetry 93 96 97 Oxygen Delivery 06/01/24 20:46 06/01/24 22:05 06/01/24 22:16 Temperature Pulse Rate 69 75 73 Respiratory Rate 16 19 13 Blood Pressure 112/51 L 111/47 L 102/48 L Pulse Oximetry 98 97 96 Oxygen Delivery 06/01/24 23:03 06/01/24 23:31 06/02/24 00:00 Temperature Pulse Rate 76 76 78 Respiratory Rate 15 14 14 Blood Pressure 115/56 L Pulse Oximetry 96 97 95 Oxygen Delivery Room Air 06/02/24 00:00 06/02/24 00:41 06/02/24 02:00 Temperature 97.6 F Pulse Rate 80 78 77 Respiratory Rate 14 Blood Pressure 109/51 L Pulse Oximetry 95 Oxygen Delivery 06/02/24 04:00 06/02/24 04:00 06/02/24 04:14 Temperature 97.7 F Pulse Rate 77 77 78 Respiratory Rate 14 14 Blood Pressure 103/39 L Pulse Oximetry 97 97 Oxygen Delivery Room Air 06/02/24 05:22 Temperature Pulse Rate 77 Respiratory Rate Blood Pressure Pulse Oximetry Oxygen Delivery Intake/Output Intake/Output: Intake & Output 05/30/24 05/31/24 06/01/24 06/02/24 23:59 23:59 23:59 23:59 Intake Total 1999 Output Total 400 Balance 1999 -150 Meds/Results Medications: Active Medications Generic Name Dose Route Start Last Admin Trade Name Freq PRN Reason Stop Dose Admin Acetaminophen 1,000 mg 06/02/24 03:34 Acetaminophen 500 Mg Tablet PO TID PRN Pain (Scale Score 1-3) Allopurinol 300 mg 06/02/24 09:00 Allopurinol 300 Mg Tablet PO DAILY [facility] Aspirin 81 mg 06/02/24 09:00 Aspirin 81 Mg Enteric Tablet PO QAM [facility] Bupropion HCl 75 mg 06/02/24 09:00 Bupropion Hcl 75 Mg Tablet PO Q12HR [facility] Carvedilol 25 mg 06/02/24 09:00 Carvedilol 25 Mg Tablet PO Q12HR [facility] Clopidogrel Bisulfate 75 mg 06/02/24 09:00 Clopidogrel Bisulfate 75 Mg Tablet PO DAILY [facility] Dextrose 12.5 gm 06/01/24 17:01 Dextrose 50% 25 Gm/50 Ml Syringe IV PUSH PRN PRN Hypoglycemia Protocol Empagliflozin 10 mg 06/02/24 09:00 Empagliflozin 10 Mg Tablet PO DAILY [facility] Febuxostat 40 mg 06/02/24 09:00 Febuxostat 40 Mg Tablet PO DAILY [facility] Glucagon 1 mg 06/01/24 17:01 Glucagon For Inj 1 Mg Vial IM PRN PRN Hypoglycemia Protocol Glucose 15 gm 06/01/24 17:01 Glucose Oral Gel 15 Gm Of Glucse In 37.5 Gm Tube PO PRN PRN Hypoglycemia Protocol Dextrose 1,000 mls @ 100 mls/hr 06/01/24 17:01 Dextrose 5% 1,000 Ml IVPB PRN PRN Hypoglycemia Protocol Ceftriaxone Sodium 1 gm in 50 mls @ 100 mls/hr 06/02/24 23:00 Rocephin 1 Gm/Ns 50 Ml IVPB Q24H [facility] Ondansetron HCl 4 mg 06/01/24 20:34 Ondansetron Inj 4 Mg/2 Ml Vial IV PUSH Q4H PRN Nausea Radiology Results: ITS Impressions Head CT 06/01/24 18:37 IMPRESSION: No acute intracranial findings. Cervical Spine CT 06/01/24 18:42 IMPRESSION: No acute osseous abnormality cervical spine. Lumbar Spine CT 06/01/24 18:51 IMPRESSION: No acute osseous abnormality. Multilevel degenerative disc disease. Pelvis CT 06/01/24 19:03 IMPRESSION: No fracture or dislocation. Diverticulosis of the sigmoid colon. Fat-containing abdominal wall hernia. Labs Labs: Laboratory Results - last 24 hr 06/01/24 06/01/24 06/01/24 17:17 17:42 17:42 WBC 12.3 H RBC 3.63 L Hgb 10.7 L Hct 35.7 L MCV 98.3 MCH 29.5 MCHC 30.0 L RDW 16.9 H Plt Count 282 MPV 9.0 Immature Gran % (Auto) 0.8 H Neut % (Auto) 89.1 H Lymph % (Auto) 5.5 L Travis % (Auto) 3.1 Eos % (Auto) 1.1 Baso % (Auto) 0.4 Lymph # (Auto) 0.68 L Travis # (Auto) 0.4 Eos # (Auto) 0.1 Baso # (Auto) 0.1 Abs Immat Gran (auto) 0.10 H Absolute Neuts (auto) 10.9 H Absolute Nucleated RBC 0.000 Nucleated RBC % 0.0 PT 14.6 INR 1.1 APTT 26.8 Sodium Cancelled 140 Potassium Cancelled Chloride Carbon Dioxide Anion Gap BUN Creatinine Estim Creat Clear Calc Estimated GFR Glucose POC Capillary Glucose 112 H Lactic Acid Calcium Magnesium Total Bilirubin AST ALT Alkaline Phosphatase Total Creatine Kinase Troponin I Total Protein Albumin Urine Color Urine Appearance Urine pH Ur Specific [place] Urine Protein Urine Glucose (UA) Urine Ketones Ur Blood (Man) Urine Nitrate Urine Bilirubin Urine Urobilinogen Leukocyte Esterase Rfl Urine RBC Urine WBC Ur Squamous Epith Cells Urine Bacteria Urine Casts 06/01/24 06/01/24 06/01/24 17:42 17:42 17:42 WBC RBC Hgb Hct MCV MCH MCHC RDW Plt Count MPV Immature Gran % (Auto) Neut % (Auto) Lymph % (Auto) Travis % (Auto) Eos % (Auto) Baso % (Auto) Lymph # (Auto) Travis # (Auto) Eos # (Auto) Baso # (Auto) Abs Immat Gran (auto) Absolute Neuts (auto) Absolute Nucleated RBC Nucleated RBC % PT INR APTT Sodium Potassium 4.0 Chloride Cancelled 110 H Carbon Dioxide Cancelled 29 Anion Gap Cancelled BUN Creatinine Estim Creat Clear Calc Estimated GFR Glucose POC Capillary Glucose Lactic Acid Calcium Magnesium Total Bilirubin AST ALT Alkaline Phosphatase Total Creatine Kinase Troponin I Total Protein Albumin Urine Color Urine Appearance Urine pH Ur Specific [place] Urine Protein Urine Glucose (UA) Urine Ketones Ur Blood (Man) Urine Nitrate Urine Bilirubin Urine Urobilinogen Leukocyte Esterase Rfl Urine RBC Urine WBC Ur Squamous Epith Cells Urine Bacteria Urine Casts 06/01/24 06/01/24 06/01/24 17:42 17:42 17:42 WBC RBC Hgb Hct MCV MCH MCHC RDW Plt Count MPV Immature Gran % (Auto) Neut % (Auto) Lymph % (Auto) Travis % (Auto) Eos % (Auto) Baso % (Auto) Lymph # (Auto) Travis # (Auto) Eos # (Auto) Baso # (Auto) Abs Immat Gran (auto) Absolute Neuts (auto) Absolute Nucleated RBC Nucleated RBC % PT INR APTT Sodium Potassium Chloride Carbon Dioxide Anion Gap 1 L BUN Cancelled 28 H Creatinine Cancelled 1.40 H Estim Creat Clear Calc Cancelled Estimated GFR Glucose POC Capillary Glucose Lactic Acid Calcium Magnesium Total Bilirubin AST ALT Alkaline Phosphatase Total Creatine Kinase Troponin I Total Protein Albumin Urine Color Urine Appearance Urine pH Ur Specific [place] Urine Protein Urine Glucose (UA) Urine Ketones Ur Blood (Man) Urine Nitrate Urine Bilirubin Urine Urobilinogen Leukocyte Esterase Rfl Urine RBC Urine WBC Ur Squamous Epith Cells Urine Bacteria Urine Casts 06/01/24 06/01/24 06/01/24 17:42 17:42 17:42 WBC RBC Hgb Hct MCV MCH MCHC RDW Plt Count MPV Immature Gran % (Auto) Neut % (Auto) Lymph % (Auto) Travis % (Auto) Eos % (Auto) Baso % (Auto) Lymph # (Auto) Travis # (Auto) Eos # (Auto) Baso # (Auto) Abs Immat Gran (auto) Absolute Neuts (auto) Absolute Nucleated RBC Nucleated RBC % PT INR APTT Sodium Potassium Chloride Carbon Dioxide Anion Gap BUN Creatinine Estim Creat Clear Calc 33 Estimated GFR Cancelled 36 L Glucose Cancelled 128 H POC Capillary Glucose Lactic Acid 1.6 Calcium Cancelled Magnesium Total Bilirubin AST ALT Alkaline Phosphatase Total Creatine Kinase Troponin I Total Protein Albumin Urine Color Urine Appearance Urine pH Ur Specific [place] Urine Protein Urine Glucose (UA) Urine Ketones Ur Blood (Man) Urine Nitrate Urine Bilirubin Urine Urobilinogen Leukocyte Esterase Rfl Urine RBC Urine WBC Ur Squamous Epith Cells Urine Bacteria Urine Casts 06/01/24 06/01/24 06/01/24 17:42 18:47 21:56 WBC RBC Hgb Hct MCV MCH MCHC RDW Plt Count MPV Immature Gran % (Auto) Neut % (Auto) Lymph % (Auto) Travis % (Auto) Eos % (Auto) Baso % (Auto) Lymph # (Auto) Travis # (Auto) Eos # (Auto) Baso # (Auto) Abs Immat Gran (auto) Absolute Neuts (auto) Absolute Nucleated RBC Nucleated RBC % PT INR APTT Sodium Potassium Chloride Carbon Dioxide Anion Gap BUN Creatinine Estim Creat Clear Calc Estimated GFR Glucose POC Capillary Glucose 195 H Lactic Acid Calcium 9.6 Magnesium 2.1 Total Bilirubin AST ALT Alkaline Phosphatase Total Creatine Kinase 386 H Troponin I < 0.012 0.020 D Total Protein Albumin Urine Color Yellow Urine Appearance Clear Urine pH 5.5 Ur Specific [place] 1.009 Urine Protein Negative Urine Glucose (UA) Trace H Urine Ketones Negative Ur Blood (Man) Negative Urine Nitrate Negative Urine Bilirubin Negative Urine Urobilinogen 0.2 Leukocyte Esterase Rfl Trace H Urine RBC 3-5 H Urine WBC 11-20 H Ur Squamous Epith Cells None seen Urine Bacteria None seen Urine Casts 3-5 06/01/24 06/02/24 06/02/24 22:02 00:28 01:06 WBC RBC Hgb Hct MCV MCH MCHC RDW Plt Count MPV Immature Gran % (Auto) Neut % (Auto) Lymph % (Auto) Travis % (Auto) Eos % (Auto) Baso % (Auto) Lymph # (Auto) Travis # (Auto) Eos # (Auto) Baso # (Auto) Abs Immat Gran (auto) Absolute Neuts (auto) Absolute Nucleated RBC Nucleated RBC % PT INR APTT Sodium Potassium Chloride Carbon Dioxide Anion Gap BUN Creatinine Estim Creat Clear Calc Estimated GFR Glucose POC Capillary Glucose 247 H 228 H Lactic Acid Calcium Magnesium Total Bilirubin AST ALT Alkaline Phosphatase Total Creatine Kinase Troponin I 0.018 Total Protein Albumin Urine Color Urine Appearance Urine pH Ur Specific [place] Urine Protein Urine Glucose (UA) Urine Ketones Ur Blood (Man) Urine Nitrate Urine Bilirubin Urine Urobilinogen Leukocyte Esterase Rfl Urine RBC Urine WBC Ur Squamous Epith Cells Urine Bacteria Urine Casts 06/02/24 06/02/24 06/02/24 01:56 04:31 08:07 WBC 10.4 H RBC 3.30 L Hgb 9.8 L Hct 32.2 L MCV 97.6 MCH 29.7 MCHC 30.4 L RDW 16.7 H Plt Count 243 MPV 9.0 Immature Gran % (Auto) Neut % (Auto) Lymph % (Auto) Travis % (Auto) Eos % (Auto) Baso % (Auto) Lymph # (Auto) Travis # (Auto) Eos # (Auto) Baso # (Auto) Abs Immat Gran (auto) Absolute Neuts (auto) Absolute Nucleated RBC Nucleated RBC % PT INR APTT Sodium 140 Potassium 4.0 Chloride 113 H Carbon Dioxide 24 Anion Gap 3 L BUN 32 H Creatinine 1.30 H Estim Creat Clear Calc 33 Estimated GFR 39 L Glucose 117 H POC Capillary Glucose 170 H 46 L* Lactic Acid Calcium 8.8 Magnesium Total Bilirubin 0.4 AST 43 H ALT 18 Alkaline Phosphatase 91 Total Creatine Kinase 404 H Troponin I Total Protein 6.0 L Albumin 3.2 L Urine Color Urine Appearance Urine pH Ur Specific [place] Urine Protein Urine Glucose (UA) Urine Ketones Ur Blood (Man) Urine Nitrate Urine Bilirubin Urine Urobilinogen Leukocyte Esterase Rfl Urine RBC Urine WBC Ur Squamous Epith Cells Urine Bacteria Urine Casts
[2024-06-02 08:42] LABS: Glucose Point of Care 100 mg/dl (65-105)
[2024-06-02] MEDS: buPROPion HCL 75 MG TABLET PO ×2 (08:54→21:59)
[2024-06-02] MEDS: ASPIRIN 81 MG ENTERIC TABLET PO (08:54)
[2024-06-02] MEDS: CLOPIDOGREL BISULFATE 75 MG TABLET PO (08:54)
[2024-06-02] MEDS: FEBUXOSTAT 40 MG TABLET PO (08:54)
[2024-06-02] MEDS: allopurinoL 300 MG TABLET PO (08:55)
[2024-06-02] MEDS: carvediloL 25 MG TABLET PO ×2 (08:55→21:59)
[2024-06-02 09:10] LABS: Hemoglobin A1C 6.9 % (<5.7)
[2024-06-02 10:41] LABS: Glucose Point of Care 142 mg/dl (65-105)
[2024-06-02 12:08] LABS: Glucose Point of Care 126 mg/dl (65-105)
[2024-06-02 14:53] LABS: Glucose Point of Care 175 mg/dl (65-105)
[2024-06-02 16:31] LABS: Glucose Point of Care 154 mg/dl (65-105)
[2024-06-02] MEDS: ACETAMINOPHEN 500 MG TABLET 1000 MG PO (17:10)
[2024-06-02 18:49] LABS: Glucose Point of Care 161 mg/dl (65-105)
[2024-06-02 20:13] LABS: Glucose Point of Care 154 mg/dl (65-105)
[2024-06-02 21:40] LABS: Glucose Point of Care 169 mg/dl (65-105)
[2024-06-02 23:16] LABS: Glucose Point of Care 145 mg/dl (65-105)
[2024-06-03] VITALS (10 sets, daily range): BP systolic 105–118; BP diastolic 45–60; PULSE 69–79; RESP 16–20; TEMP 36.6–36.8; O2SAT 91–94
[2024-06-03 04:36] LABS: Glucose Point of Care 105 mg/dl (65-105)
[2024-06-03 05:08] LABS: Basophils Percent Auto 0.5 % (0.2-1.2); Eosinophils Absolute Auto 0.2 K/mm3 (0-0.3); Eosinophils Percent Auto 2.6 % (0-4.4); Hematocrit 29.3 % (37.0-47.0); Immature Granulocyte Absolute 0.04 K/mm3 (0.00-0.031); Immature Granulocyte Percent A 0.5 % (0-0.5); Lymphocytes Percent Auto 14.1 % (18.3-44.2); Mean Corpuscular HGB Conc 30.7 g/dl (32-36); Mean Corpuscular Hemoglobin 30.2 pg (26-34); Mean Corpuscular Volume 98.3 fl (80-100); Mean Platelet Volume 9.2 fl (7.4-10.4); Monocytes Absolute Auto 0.6 K/mm3 (0.1-0.6); Monocytes Percent Auto 7.4 % (2.6-8.5); Neutrophils Absolute Auto 5.9 K/mm3 (1.3-6.7); Neutrophils Percent Auto 74.9 % (45.5-73.1); Platelet Count Result 222 k/mm3 (150-375); Red Blood Count 2.98 M/mm3 (4.2-5.4); White Blood Count 7.8 K/mm3 (4.5-10.0)
[2024-06-03 05:20] LABS: Alanine Aminotransferase 17 U/L (6-35); Alkaline Phosphatase 86 U/L (38-126); Anion Gap 1 mmol/L (4-12); Aspartate Amino Transferase 36 U/L (14-36); Bilirubin,Total 0.4 mg/dL (0.2-1.3); Blood Urea Nitrogen 27 mg/dL (7-17); Calcium 8.7 mg/dL (8.4-10.2); Carbon Dioxide 24 mmol/L (22-30); Chloride 113 mmol/L (98-107); Estimated CRCL calculation 33 ml/min; Estimated Glomerular Filt Rate 39; Glucose 95 mg/dL (65-110); Sodium 138 mmol/L (137-145)
[2024-06-03 05:38] LABS: Glucose Point of Care 113 mg/dl (65-105)
[2024-06-03] MEDS: FEBUXOSTAT 40 MG TABLET PO (08:26)
[2024-06-03] MEDS: buPROPion HCL 75 MG TABLET PO ×2 (08:26→20:00)
[2024-06-03] MEDS: ASPIRIN 81 MG ENTERIC TABLET PO (08:26)
[2024-06-03] MEDS: carvediloL 25 MG TABLET PO ×2 (08:26→20:00)
[2024-06-03] MEDS: CLOPIDOGREL BISULFATE 75 MG TABLET PO (08:27)
[2024-06-03] MEDS: ACETAMINOPHEN 500 MG TABLET 1000 MG PO ×2 (08:27→18:25)
[2024-06-03] MEDS: allopurinoL 300 MG TABLET PO (08:27)
[2024-06-03 08:46] LABS: Glucose Point of Care 95 mg/dl (65-105)
[2024-06-03 10:29] LABS: Glucose Point of Care 181 mg/dl (65-105)
--- NOTE | 2024-06-03 10:33 | P.PNIM_ITS ---
Progress Note: A&P Assessment and Plan (1) Elevated CK: Code(s): R74.8 - Abnormal levels of other serum enzymes Status: Acute (2) UTI (urinary tract infection): Code(s): N39.0 - Urinary tract infection, site not specified Status: Acute (3) ARNOLD (acute kidney injury): Code(s): N17.9 - Acute kidney failure, unspecified Status: Acute (4) Hypoglycemia: Code(s): E16.2 - Hypoglycemia, unspecified Status: Acute (5) Syncope and collapse: Code(s): R55 - Syncope and collapse Status: Acute (6) Leg wound, right: Code(s): S81.801A - Unspecified open wound, right lower leg, initial encounter Status: Acute (7) Essential hypertension, benign: Code(s): I10 - Essential (primary) hypertension Status: Acute (8) CAD (coronary artery disease): Code(s): I25.10 - Atherosclerotic heart disease of [place] coronary artery without angina pectoris Status: Acute (9) PADMINI (obstructive sleep apnea): Code(s): G47.33 - Obstructive sleep apnea (adult) (pediatric) Status: Acute (10) Morbid obesity with BMI of 45.0-49.9, adult: Code(s): E66.01 - Morbid (severe) obesity due to excess calories; Z68.42 - Body mass index [BMI] 45.0-49.9, adult Status: Acute (11) CHF (congestive heart failure): Code(s): I50.9 - Heart failure, unspecified Status: Acute (12) Acute kidney injury superimposed on CKD: Code(s): N17.9 - Acute kidney failure, unspecified; N18.9 - Chronic kidney disease, unspecified Status: Acute Plan Patient is an 79-year-old female, with PMH of CAD s/p coronary stenting on plavix, DM, CHF, who presents the ED via EMS with report of syncope and hypoglycemia. Per family at bedside, daughter came home to find patient on the ground altered and confused. EMS was notified. Patient was found to be hypo glycemic with a blood sugar in the 40s. She does have history of frequent hypoglycemic episodes. She is on glimepiride, farxiga And Lantus. Patient states the last thing she remembers is waking up on the ground. Daughter is unsure how long she was on the ground. She states it appeared as though she was cooking lunch, but is unsure what time this was. Patient complains of pain to her lower back and left hip, generalized weakness. Denies dizziness, lightheadedness, focal weakness, vision changes, headache, chest pain, shortness of breath. Blood sugar upon arrival to the ED was 112. Vital signs Showed borderline blood pressure. Received IV fluids. EKG without acute ST-T changes. Laboratory evaluation showed WBC of 12.3 mild anemia consistent with previous records. CMP with stable electrolytes creatinine slightly bumped to 1.4 baseline around 1.1 per records. Blood sugar on lab will 128. Lactic acid was normal at 1.6. Magnesium normal troponin was undetectable. CK mildly elevated at 386. UA with trace leukocytes today is 11-20 white cell. Urine culture sent. CT head negative for any acute intracranial abnormality. Cervical spine negative. CT pelvis and lumbar spine without any acute findings. Workup for syncope with telemetry monitoring. Likely related to hypoglycemia and/or hypotension. Continue IV fluids which has been discontinued now. Blood pressure stable hypoglycemia: Hold glimepiride and Lantus. Will also hold Farxiga. A1c came back at 6.9. To trend Accu-Cheks Mild rhabdomyolysis hold statin UTI ceftriaxone Hypertension mild hold blood pressure medication Entresto furosemide. Continue carvedilol for now Coronary artery disease status post stents low Back pain due to fall musculoskeletal. CT lumbar spine was negative for any acute findings. Lidocaine patch and pain controlled ordered. Type 2 diabetes on insulin Congestive heart failure chronic systolic/ diastolic. Echo 2020 EF 35-40% with grade 1 diastolic dysfunction. Recheck echo Morbid obesity Hypertension Hyperlipidemia Gout Obstructive sleep apnea DVT prophylaxis Lovenox Code status full code Subjective Date/time seen: 06/03/24 10:33 Interval history: complains of low back pain. Where see impacted when she fell. no other compl aints. Blood sugar trend reviewed. Review of Systems Review of Systems: All systems reviewed & are unremarkable except as noted in HPI and below Exam Narrative: GENERAL: Elderly, morbidly obese with BMI of 44.0, non-toxic, in no acute distress. HEAD: Normocephalic, atraumatic. RESPIRATORY: Airway patent, respirations nonlabored. Clear to auscultation bilaterally, no rales, rhonchi, wheezing. CARDIOVASCULAR: Regular rate and rhythm without murmurs, rubs, or gallops. ABDOMINAL: Soft, nontender, nondistended. Normoactive BS. MUSCULOSKELETAL: Moves all extremities. No gross deformities. Lower lumbar paraspinal tenderness SKIN: Warm, dry, normal color. NEURO: A&O X3. Speech clear. Cranial nerves II-XII grossly intact. Steady gait. No ataxic movements. No focal deficits. PSYCHIATRIC: Appropriate mood and affect. Normal interaction. Objective Data Vital Signs Vital Signs: Vital Signs - 24 hr 06/02/24 12:00 06/02/24 12:00 06/02/24 14:00 Temperature 98.2 F Pulse Rate 80 82 81 Respiratory Rate 18 Blood Pressure 111/40 L Pulse Oximetry 96 Oxygen Delivery 06/02/24 16:00 06/02/24 16:00 06/02/24 16:00 Temperature 98.2 F Pulse Rate 85 85 Respiratory Rate 14 Blood Pressure 116/51 L Pulse Oximetry 95 Oxygen Delivery Room Air 06/02/24 18:00 06/02/24 19:53 06/02/24 20:00 Temperature 98.7 F Pulse Rate 86 82 92 Respiratory Rate 20 Blood Pressure 117/41 L Pulse Oximetry 94 Oxygen Delivery 06/02/24 21:50 06/02/24 21:59 06/02/24 22:00 Temperature Pulse Rate 79 78 Respiratory Rate Blood Pressure Pulse Oximetry Oxygen Delivery Room Air 06/02/24 23:43 06/03/24 00:00 06/03/24 00:00 Temperature 99.0 F Pulse Rate 78 76 Respiratory Rate 18 Blood Pressure 119/40 L Pulse Oximetry 94 Oxygen Delivery Room Air 06/03/24 02:00 06/03/24 04:00 06/03/24 04:00 Temperature 98.1 F Pulse Rate 73 74 77 Respiratory Rate 18 Blood Pressure 118/45 L Pulse Oximetry 93 Oxygen Delivery 06/03/24 04:00 06/03/24 06:00 06/03/24 08:00 Temperature 98.0 F Pulse Rate 79 78 Respiratory Rate 20 Blood Pressure 112/51 L Pulse Oximetry 91 Oxygen Delivery Room Air 06/03/24 08:26 Temperature Pulse Rate 77 Respiratory Rate Blood Pressure Pulse Oximetry Oxygen Delivery Intake/Output Intake/Output: Intake & Output 05/31/24 06/01/24 06/02/2429/24 23:59 23:59 23:59 23:59 Intake Total 1999 970 50 Output Total 950 200 Balance 1999 20 -150 Meds/Results Medications: Active Medications Generic Name Dose Route Start Last Admin Trade Name Freq PRN Reason Stop Dose Admin Acetaminophen 1,000 mg 06/02/24 03:34 06/03/24 08:27 Acetaminophen 500 Mg Tablet PO 1,000 mg TID PRN Administration Pain (Scale Score 1-3) Allopurinol 300 mg 06/02/24 09:00 06/03/24 08:27 Allopurinol 300 Mg Tablet PO 300 mg DAILY GISEL Administration Aspirin 81 mg 06/02/24 09:00 06/03/24 08:26 Aspirin 81 Mg Enteric Tablet PO 81 mg QAM GISEL Administration Bupropion HCl 75 mg 06/02/24 09:00 06/03/24 08:26 Bupropion Hcl 75 Mg Tablet PO 75 mg Q12HR GISEL Administration Carvedilol 25 mg 06/02/24 09:00 06/03/24 08:26 Carvedilol 25 Mg Tablet PO 25 mg Q12HR GISEL Administration Clopidogrel Bisulfate 75 mg 06/02/24 09:00 06/03/24 08:27 Clopidogrel Bisulfate 75 Mg Tablet PO 75 mg DAILY GISEL Administration Dextrose 12.5 gm 06/01/24 17:01 Dextrose 50% 25 Gm/50 Ml Syringe IV PUSH PRN PRN Hypoglycemia Protocol Febuxostat 40 mg 06/02/24 09:00 06/03/24 08:26 Febuxostat 40 Mg Tablet PO 40 mg DAILY GISEL Administration Glucagon 1 mg 06/01/24 17:01 Glucagon For Inj 1 Mg Vial IM PRN PRN Hypoglycemia Protocol Glucose 15 gm 06/01/24 17:01 Glucose Oral Gel 15 Gm Of Glucse In 37.5 Gm Tube PO PRN PRN Hypoglycemia Protocol Dextrose 1,000 mls @ 100 mls/hr 06/01/24 17:01 Dextrose 5% 1,000 Ml IVPB PRN PRN Hypoglycemia Protocol Ceftriaxone Sodium 1 gm in 50 mls @ 100 mls/hr 06/02/24 23:00 06/03/24 07:00 Rocephin 1 Gm/Ns 50 Ml IVPB Infused Q24H GISEL Infusion Ondansetron HCl 4 mg 06/01/24 20:34 Ondansetron Inj 4 Mg/2 Ml Vial IV PUSH Q4H PRN Nausea Perflutren Lipid Microsphere 0 ml 06/02/24 08:39 Perflutren Lipid Microspheres 1.5 Ml Vial Diluted To 10 Ml Total Volume IV PUSH 06/05/24 08:39 ONCE PRN adequate visualization Protocol Radiology Results: ITS Impressions Head CT 06/01/24 18:37 IMPRESSION: No acute intracranial findings. Cervical Spine CT 06/01/24 18:42 IMPRESSION: No acute osseous abnormality cervical spine. Lumbar Spine CT 06/01/24 18:51 IMPRESSION: No acute osseous abnormality. Multilevel degenerative disc disease. Pelvis CT 06/01/24 19:03 IMPRESSION: No fracture or dislocation. Diverticulosis of the sigmoid colon. Fat-containing abdominal wall hernia. Chest X-Ray 06/02/24 10:24 IMPRESSION: 1. Pulmonary vascular congestion and mild pulmonary edema in the lower lungs. Labs Labs: Laboratory Results - last 24 hr 06/02/24 06/02/24 06/02/24 10:38 11:42 14:51 WBC RBC Hgb Hct MCV MCH MCHC RDW Plt Count MPV Immature Gran % (Auto) Neut % (Auto) Lymph % (Auto) [place] % (Auto) Eos % (Auto) Baso % (Auto) Lymph # (Auto) [place] # (Auto) Eos # (Auto) Baso # (Auto) Abs Immat Gran (auto) Absolute Neuts (auto) Absolute Nucleated RBC Nucleated RBC % Sodium Potassium Chloride Carbon Dioxide Anion Gap BUN Creatinine Estim Creat Clear Calc Estimated GFR Glucose POC Capillary Glucose 142 H 126 H 175 H Calcium Magnesium Total Bilirubin AST ALT Alkaline Phosphatase Total Protein Albumin 06/02/24 06/02/24 06/02/24 16:24 18:46 19:55 WBC RBC Hgb Hct MCV MCH MCHC RDW Plt Count MPV Immature Gran % (Auto) Neut % (Auto) Lymph % (Auto) [place] % (Auto) Eos % (Auto) Baso % (Auto) Lymph # (Auto) [place] # (Auto) Eos # (Auto) Baso # (Auto) Abs Immat Gran (auto) Absolute Neuts (auto) Absolute Nucleated RBC Nucleated RBC % Sodium Potassium Chloride Carbon Dioxide Anion Gap BUN Creatinine Estim Creat Clear Calc Estimated GFR Glucose POC Capillary Glucose 154 H 161 H 154 H Calcium Magnesium Total Bilirubin AST ALT Alkaline Phosphatase Total Protein Albumin 06/02/24 06/02/24 06/03/24 21:37 23:12 01:36 WBC RBC Hgb Hct MCV MCH MCHC RDW Plt Count MPV Immature Gran % (Auto) Neut % (Auto) Lymph % (Auto) [place] % (Auto) Eos % (Auto) Baso % (Auto) Lymph # (Auto) [place] # (Auto) Eos # (Auto) Baso # (Auto) Abs Immat Gran (auto) Absolute Neuts (auto) Absolute Nucleated RBC Nucleated RBC % Sodium Potassium Chloride Carbon Dioxide Anion Gap BUN Creatinine Estim Creat Clear Calc Estimated GFR Glucose POC Capillary Glucose 169 H 145 H 113 H Calcium Magnesium Total Bilirubin AST ALT Alkaline Phosphatase Total Protein Albumin 06/03/24 06/03/24 06/03/24 04:10 04:48 08:09 WBC 7.8 RBC 2.98 L Hgb 9.0 L Hct 29.3 L MCV 98.3 MCH 30.2 MCHC 30.7 L RDW 17.0 H Plt Count 222 MPV 9.2 Immature Gran % (Auto) 0.5 Neut % (Auto) 74.9 H Lymph % (Auto) 14.1 L [place] % (Auto) 7.4 Eos % (Auto) 2.6 Baso % (Auto) 0.5 Lymph # (Auto) 1.10 [place] # (Auto) 0.6 Eos # (Auto) 0.2 Baso # (Auto) 0.0 Abs Immat Gran (auto) 0.04 H Absolute Neuts (auto) 5.9 Absolute Nucleated RBC 0.000 Nucleated RBC % 0.0 Sodium 138 Potassium 4.0 Chloride 113 H Carbon Dioxide 24 Anion Gap 1 L BUN 27 H Creatinine 1.30 H Estim Creat Clear Calc 33 Estimated GFR 39 L Glucose 95 POC Capillary Glucose 105 95 Calcium 8.7 Magnesium 2.0 Total Bilirubin 0.4 AST 36 ALT 17 Alkaline Phosphatase 86 Total Protein 6.0 L Albumin 3.0 L 06/03/24 10:11 WBC RBC Hgb Hct MCV MCH MCHC RDW Plt Count MPV Immature Gran % (Auto) Neut % (Auto) Lymph % (Auto) [place] % (Auto) Eos % (Auto) Baso % (Auto) Lymph # (Auto) [place] # (Auto) Eos # (Auto) Baso # (Auto) Abs Immat Gran (auto) Absolute Neuts (auto) Absolute Nucleated RBC Nucleated RBC % Sodium Potassium Chloride Carbon Dioxide Anion Gap BUN Creatinine Estim Creat Clear Calc Estimated GFR Glucose POC Capillary Glucose 181 H Calcium Magnesium Total Bilirubin AST ALT Alkaline Phosphatase Total Protein Albumin
[2024-06-03] MEDS: LIDOCAINE 5% PATCH 1 PATCH TRANSDERM (11:07)
[2024-06-03] MEDS: CYCLOBENZAPRINE HCL 5 MG TABLET PO (11:10)
[2024-06-03 11:57] LABS: Glucose Point of Care 132 mg/dl (65-105)
--- NOTE | 2024-06-03 12:55 | PC.NURSE ---
This patient, Juani Nam, was received from IMU on 06/03/24 at 1256. Patient/family oriented to unit policies and routines
--- NOTE | 2024-06-03 12:57 | PC.NURSE ---
This patient, Juani Nam, was transferred to [facility] on 06/03/24 at 1250. Personal belongings sent with patient. Report given to accepting RN. Appropriate documentation sent with patient.
[2024-06-03 16:55] LABS: Glucose Point of Care 127 mg/dl (65-105)
[2024-06-03] MEDS: HYDROcodone/acetaminophen (*CRX) 5-325 MG TABLET 1 TAB PO (19:58)
[2024-06-03 20:26] LABS: Glucose Point of Care 163 mg/dl (65-105)
[2024-06-04] VITALS: BP 100/55; PULSE 88; RESP 20; TEMP 36.6; O2SAT 95
[2024-06-04 08:00] VITALS: BP 135/47; PULSE 77; RESP 16; TEMP 36.2; O2SAT 98
[2024-06-04 08:19] LABS: Glucose Point of Care 121 mg/dl (65-105)
[2024-06-04] MEDS: allopurinoL 300 MG TABLET PO (09:03)
[2024-06-04 09:04] VITALS: PULSE 77
[2024-06-04] MEDS: carvediloL 25 MG TABLET PO ×2 (09:04→20:28)
[2024-06-04] MEDS: CLOPIDOGREL BISULFATE 75 MG TABLET PO (09:04)
[2024-06-04] MEDS: ACETAMINOPHEN 500 MG TABLET 1000 MG PO (09:04)
[2024-06-04] MEDS: LIDOCAINE 5% PATCH 1 PATCH TRANSDERM (09:04)
[2024-06-04] MEDS: buPROPion HCL 75 MG TABLET PO ×2 (09:04→20:28)
[2024-06-04] MEDS: ASPIRIN 81 MG ENTERIC TABLET PO (09:04)
[2024-06-04] MEDS: FEBUXOSTAT 40 MG TABLET PO (09:04)
[2024-06-04 10:50] VITALS: BMI 39.4
[2024-06-04 11:51] LABS: Glucose Point of Care 131 mg/dl (65-105)
--- NOTE | 2024-06-04 11:51 | P.PNIM_ITS ---
Progress Note: A&P Assessment and Plan (1) Elevated CK: Code(s): R74.8 - Abnormal levels of other serum enzymes Status: Acute (2) UTI (urinary tract infection): Code(s): N39.0 - Urinary tract infection, site not specified Status: Acute (3) ARNOLD (acute kidney injury): Code(s): N17.9 - Acute kidney failure, unspecified Status: Acute (4) Hypoglycemia: Code(s): E16.2 - Hypoglycemia, unspecified Status: Acute (5) Syncope and collapse: Code(s): R55 - Syncope and collapse Status: Acute (6) Leg wound, right: Code(s): S81.801A - Unspecified open wound, right lower leg, initial encounter Status: Acute (7) Essential hypertension, benign: Code(s): I10 - Essential (primary) hypertension Status: Acute (8) CAD (coronary artery disease): Code(s): I25.10 - Atherosclerotic heart disease of [place] coronary artery without angina pectoris Status: Acute (9) PADMINI (obstructive sleep apnea): Code(s): G47.33 - Obstructive sleep apnea (adult) (pediatric) Status: Acute (10) Morbid obesity with BMI of 45.0-49.9, adult: Code(s): E66.01 - Morbid (severe) obesity due to excess calories; Z68.42 - Body mass index [BMI] 45.0-49.9, adult Status: Acute (11) CHF (congestive heart failure): Code(s): I50.9 - Heart failure, unspecified Status: Acute (12) Acute kidney injury superimposed on CKD: Code(s): N17.9 - Acute kidney failure, unspecified; N18.9 - Chronic kidney disease, unspecified Status: Acute Plan Patient is an 79-year-old female, with PMH of CAD s/p coronary stenting on plavix, DM, CHF, who presents the ED via EMS with report of syncope and hypoglycemia. Per family at bedside, daughter came home to find patient on the ground altered and confused. EMS was notified. Patient was found to be hypo glycemic with a blood sugar in the 40s. She does have history of frequent hypoglycemic episodes. She is on glimepiride, farxiga And Lantus. Patient states the last thing she remembers is waking up on the ground. Daughter is unsure how long she was on the ground. She states it appeared as though she was cooking lunch, but is unsure what time this was. Patient complains of pain to her lower back and left hip, generalized weakness. Denies dizziness, lightheadedness, focal weakness, vision changes, headache, chest pain, shortness of breath. Blood sugar upon arrival to the ED was 112. Vital signs Showed borderline blood pressure. Received IV fluids. EKG without acute ST-T changes. Laboratory evaluation showed WBC of 12.3 mild anemia consistent with previous records. CMP with stable electrolytes creatinine slightly bumped to 1.4 baseline around 1.1 per records. Blood sugar on lab will 128. Lactic acid was normal at 1.6. Magnesium normal troponin was undetectable. CK mildly elevated at 386. UA with trace leukocytes today is 11-20 white cell. Urine culture sent. CT head negative for any acute intracranial abnormality. Cervical spine negative. CT pelvis and lumbar spine without any acute findings. Workup for syncope with telemetry monitoring. Likely related to hypoglycemia and/or hypotension. Continue IV fluids which has been discontinued now. Blood pressure stable hypoglycemia: Hold glimepiride and Lantus. Will also hold Farxiga. A1c came back at 6.9. To trend Accu-Cheks. still off antihyperglycemic agent Mild rhabdomyolysis hold statin UTI ceftriaxone Hypertension mild hold blood pressure medication Entresto furosemide. Continue carvedilol for now Coronary artery disease status post stents low Back pain due to fall musculoskeletal. CT lumbar spine was negative for any acute findings. Lidocaine patch and pain controlled ordered. pt ot to see Type 2 diabetes on insulin Congestive heart failure chronic systolic/ diastolic. Echo 2020 EF 35-40% with grade 1 diastolic dysfunction. Recheck echo with ef 50-55%, inferior wall, basal inferoseptal, mid inferoseptal, basal inferolateral wall and mid inferolateral wall hypokinetic. fu as op basis Morbid obesity Hypertension Hyperlipidemia Gout Obstructive sleep apnea DVT prophylaxis Lovenox Code status full code Subjective Date/time seen: 06/04/24 11:51 Interval history: Continues to have low back pain. Little better today. Still rates at 7/10. Has not gotten out of bed yet. Will ask PT OT to see. Review of Systems Review of Systems: All systems reviewed & are unremarkable except as noted in HPI and below Exam Narrative: GENERAL: Elderly, morbidly obese with BMI of 44.0, non-toxic, in no acute distress. HEAD: Normocephalic, atraumatic. RESPIRATORY: Airway patent, respirations nonlabored. Clear to auscultation bilaterally, no rales, rhonchi, wheezing. CARDIOVASCULAR: Regular rate and rhythm without murmurs, rubs, or gallops. ABDOMINAL: Soft, nontender, nondistended. Normoactive BS. MUSCULOSKELETAL: Moves all extremities. No gross deformities. Lower lumbar paraspinal tenderness SKIN: Warm, dry, normal color. NEURO: A&O X3. Speech clear. Cranial nerves II-XII grossly intact. Steady gait. No ataxic movements. No focal deficits. PSYCHIATRIC: Appropriate mood and affect. Normal interaction. Objective Data Vital Signs Vital Signs: Vital Signs - 24 hr 06/03/24 12:25 06/03/24 20:00 06/03/24 20:00 Temperature 97.9 F Pulse Rate 70 78 Respiratory Rate 16 Blood Pressure 105/48 L Pulse Oximetry 92 Oxygen Delivery Room Air 06/03/24 23:27 06/04/24 00:00 06/04/24 08:00 Temperature 98.2 F 97.8 F 97.2 F L Pulse Rate 69 88 77 Respiratory Rate 18 20 16 Blood Pressure 106/60 100/55 L 135/47 L Pulse Oximetry 94 95 98 Oxygen Delivery 06/04/24 09:00 06/04/24 09:04 Temperature Pulse Rate 77 Respiratory Rate Blood Pressure Pulse Oximetry Oxygen Delivery Room Air Intake/Output Intake/Output: Intake & Output 06/01/24 06/02/24 06/03/24 06/04/24 23:59 23:59 23:59 23:59 Intake Total 1999 970 760 250 Output Total 950 500 Balance 1999 20 260 250 Meds/Results Medications: Active Medications Generic Name Dose Route Start Last Admin Trade Name Freq PRN Reason Stop Dose Admin Acetaminophen 1,000 mg 06/02/24 03:34 06/04/24 09:04 Acetaminophen 500 Mg Tablet PO 1,000 mg TID PRN Administration Pain (Scale Score 1-3) Hydrocodone Bitart/Acetaminophen 1 tab 06/03/24 10:33 06/03/24 19:58 Hydrocodone/Acetaminophen (*Crx) 5-325 Mg Tablet PO 1 tab Q4H PRN Administration Pain Rated 4-6 Allopurinol 300 mg 06/02/24 09:00 06/04/24 09:03 Allopurinol 300 Mg Tablet PO 300 mg DAILY GISEL Administration Aspirin 81 mg 06/02/24 09:00 06/04/24 09:04 Aspirin 81 Mg Enteric Tablet PO 81 mg QAM GISEL Administration Bupropion HCl 75 mg 06/02/24 09:00 06/04/24 09:04 Bupropion Hcl 75 Mg Tablet PO 75 mg Q12HR GISEL Administration Carvedilol 25 mg 06/02/24 09:00 06/04/24 09:04 Carvedilol 25 Mg Tablet PO 25 mg Q12HR GISEL Administration Clopidogrel Bisulfate 75 mg 06/02/24 09:00 06/04/24 09:04 Clopidogrel Bisulfate 75 Mg Tablet PO 75 mg DAILY GISEL Administration Cyclobenzaprine HCl 5 mg 06/03/24 10:36 06/03/24 11:10 Cyclobenzaprine Hcl 5 Mg Tablet PO 5 mg Q8H PRN Administration Muscle Spasm Dextrose 12.5 gm 06/01/24 17:01 Dextrose 50% 25 Gm/50 Ml Syringe IV PUSH PRN PRN Hypoglycemia Protocol Febuxostat 40 mg 06/02/24 09:00 06/04/24 09:04 Febuxostat 40 Mg Tablet PO 40 mg DAILY GISEL Administration Glucagon 1 mg 06/01/24 17:01 Glucagon For Inj 1 Mg Vial IM PRN PRN Hypoglycemia Protocol Glucose 15 gm 06/01/24 17:01 Glucose Oral Gel 15 Gm Of Glucse In 37.5 Gm Tube PO PRN PRN Hypoglycemia Protocol Dextrose 1,000 mls @ 100 mls/hr 06/01/24 17:01 Dextrose 5% 1,000 Ml IVPB PRN PRN Hypoglycemia Protocol Ceftriaxone Sodium 1 gm in 50 mls @ 100 mls/hr 06/02/24 23:00 06/03/24 22:32 Rocephin 1 Gm/Ns 50 Ml IVPB 100 mls/hr Q24H GISEL Administration Lidocaine 1 patch 06/03/24 11:00 06/04/24 09:04 Lidocaine 5% Patch TRANSDERM 1 patch DAILY GISEL Administration Ondansetron HCl 4 mg 06/01/24 20:34 Ondansetron Inj 4 Mg/2 Ml Vial IV PUSH Q4H PRN Nausea Perflutren Lipid Microsphere 0 ml 06/02/24 08:39 Perflutren Lipid Microspheres 1.5 Ml Vial Diluted To 10 Ml Total Volume IV PUSH 06/05/24 08:39 ONCE PRN adequate visualization Protocol Radiology Results: ITS Impressions Head CT 06/01/24 18:37 IMPRESSION: No acute intracranial findings. Cervical Spine CT 06/01/24 18:42 IMPRESSION: No acute osseous abnormality cervical spine. Lumbar Spine CT 06/01/24 18:51 IMPRESSION: No acute osseous abnormality. Multilevel degenerative disc disease. Pelvis CT 06/01/24 19:03 IMPRESSION: No fracture or dislocation. Diverticulosis of the sigmoid colon. Fat-containing abdominal wall hernia. Chest X-Ray 06/02/24 10:24 IMPRESSION: 1. Pulmonary vascular congestion and mild pulmonary edema in the lower lungs. Labs Labs: Laboratory Results - last 24 hr 06/03/24 06/03/24 06/03/24 11:36 16:48 19:43 POC Capillary Glucose 132 H 127 H 163 H 06/04/24 08:09 POC Capillary Glucose 121 H
[2024-06-04 16:00] VITALS: BP 134/53; PULSE 75; RESP 16; TEMP 36.5; O2SAT 100
[2024-06-04 16:55] LABS: Glucose Point of Care 148 mg/dl (65-105)
[2024-06-04] MEDS: HYDROcodone/acetaminophen (*CRX) 5-325 MG TABLET 1 TAB PO (19:39)
[2024-06-04 20:10] LABS: Glucose Point of Care 205 mg/dl (65-105)
[2024-06-04 20:28] VITALS: PULSE 75
[2024-06-04 20:46] VITALS: BP 145/54; PULSE 80; RESP 20; TEMP 36.9; O2SAT 94
[2024-06-05 06:16] VITALS: BP 129/50; PULSE 81; RESP 18; TEMP 36.6; O2SAT 91
[2024-06-05 06:16] LABS: Basophils Percent Auto 0.4 % (0.2-1.2); Eosinophils Absolute Auto 0.2 K/mm3 (0-0.3); Eosinophils Percent Auto 1.9 % (0-4.4); Hematocrit 31.1 % (37.0-47.0); Hemoglobin 9.4 g/dL (12.0-15.0); Immature Granulocyte Absolute 0.06 K/mm3 (0.00-0.031); Immature Granulocyte Percent A 0.7 % (0-0.5); Lymphocytes Absolute Auto 0.71 K/mm3 (0.9-3.2); Lymphocytes Percent Auto 7.9 % (18.3-44.2); Mean Corpuscular HGB Conc 30.2 g/dl (32-36); Mean Corpuscular Hemoglobin 29.6 pg (26-34); Mean Corpuscular Volume 97.8 fl (80-100); Monocytes Absolute Auto 0.5 K/mm3 (0.1-0.6); Neutrophils Absolute Auto 7.5 K/mm3 (1.3-6.7); Neutrophils Percent Auto 84.1 % (45.5-73.1); Platelet Count Result 223 k/mm3 (150-375); Red Blood Count 3.18 M/mm3 (4.2-5.4); Red Cell Distribution Width 17.1 % (11.5-14.5)
[2024-06-05 06:27] LABS: Alanine Aminotransferase 24 U/L (6-35); Albumin Level 3.3 g/dL (3.5-5.1); Alkaline Phosphatase 96 U/L (38-126); Anion Gap 3 mmol/L (4-12); Aspartate Amino Transferase 68 U/L (14-36); Bilirubin,Total 0.6 mg/dL (0.2-1.3); Blood Urea Nitrogen 23 mg/dL (7-17); Calcium 9.1 mg/dL (8.4-10.2); Carbon Dioxide 25 mmol/L (22-30); Chloride 107 mmol/L (98-107); Estimated CRCL calculation 39 ml/min; Estimated Glomerular Filt Rate 48; Glucose 150 mg/dL (65-110); Potassium 4.1 mmol/L (3.4-5.0); Sodium 135 mmol/L (137-145)
[2024-06-05 08:14] LABS: Glucose Point of Care 186 mg/dl (65-105)
[2024-06-05 08:54] VITALS: PULSE 82
[2024-06-05] MEDS: buPROPion HCL 75 MG TABLET PO ×2 (08:54→22:08)
[2024-06-05] MEDS: allopurinoL 300 MG TABLET PO (08:54)
[2024-06-05] MEDS: carvediloL 25 MG TABLET PO ×2 (08:54→22:09)
[2024-06-05] MEDS: ASPIRIN 81 MG ENTERIC TABLET PO (08:54)
[2024-06-05] MEDS: FEBUXOSTAT 40 MG TABLET PO (08:54)
[2024-06-05] MEDS: CLOPIDOGREL BISULFATE 75 MG TABLET PO (08:54)
[2024-06-05] MEDS: ACETAMINOPHEN 500 MG TABLET 1000 MG PO ×2 (08:54→18:00)
[2024-06-05] MEDS: LIDOCAINE 5% PATCH 1 PATCH TRANSDERM (08:55)
[2024-06-05] MEDS: INSULIN GLARGINE (*BKC) 100 UNITS/ML 15 UNITS SUB-Q (10:42)
[2024-06-05] MEDS: HYDROcodone/acetaminophen (*CRX) 5-325 MG TABLET 1 TAB PO (10:43)
[2024-06-05 12:08] LABS: Glucose Point of Care 182 mg/dl (65-105)
--- NOTE | 2024-06-05 12:49 | PM.IMPN ---
Progress Note: A&P Assessment and Plan (1) Elevated CK: Code(s): R74.8 - Abnormal levels of other serum enzymes Status: Acute (2) UTI (urinary tract infection): Code(s): N39.0 - Urinary tract infection, site not specified Status: Acute (3) ARNOLD (acute kidney injury): Code(s): N17.9 - Acute kidney failure, unspecified Status: Acute (4) Hypoglycemia: Code(s): E16.2 - Hypoglycemia, unspecified Status: Acute (5) Syncope and collapse: Code(s): R55 - Syncope and collapse Status: Acute (6) Leg wound, right: Code(s): S81.801A - Unspecified open wound, right lower leg, initial encounter Status: Acute (7) Essential hypertension, benign: Code(s): I10 - Essential (primary) hypertension Status: Acute (8) CAD (coronary artery disease): Code(s): I25.10 - Atherosclerotic heart disease of [place] coronary artery without angina pectoris Status: Acute (9) PADMINI (obstructive sleep apnea): Code(s): G47.33 - Obstructive sleep apnea (adult) (pediatric) Status: Acute (10) Morbid obesity with BMI of 45.0-49.9, adult: Code(s): E66.01 - Morbid (severe) obesity due to excess calories; Z68.42 - Body mass index [BMI] 45.0-49.9, adult Status: Acute (11) CHF (congestive heart failure): Code(s): I50.9 - Heart failure, unspecified Status: Acute (12) Acute kidney injury superimposed on CKD: Code(s): N17.9 - Acute kidney failure, unspecified; N18.9 - Chronic kidney disease, unspecified Status: Acute Plan Patient is an 79-year-old female, with PMH of CAD s/p coronary stenting on plavix, DM, CHF, who presents the ED via EMS with report of syncope and hypoglycemia. Per family at bedside, daughter came home to find patient on the ground altered and confused. EMS was notified. Patient was found to be hypoglycemic with a blood sugar in the 40s. She does have history of frequent hypoglycemic episodes. She is on glimepiride, farxiga And Lantus. Patient states the last thing she remembers is waking up on the ground. Daughter is unsure how long she was on the ground. She states it appeared as though she was cooking lunch, but is unsure what time this was. Patient complains of pain to her lower back and left hip, generalized weakness. Denies dizziness, lightheadedness, focal weakness, vision changes, headache, chest pain, shortness of breath. Blood sugar upon arrival to the ED was 112. Vital signs Showed borderline blood pressure. Received IV fluids. EKG without acute ST-T changes. Laboratory evaluation showed WBC of 12.3 mild anemia consistent with previous records. CMP with stable electrolytes creatinine slightly bumped to 1.4 baseline around 1.1 per records. Blood sugar on lab will 128. Lactic acid was normal at 1.6. Magnesium normal troponin was undetectable. CK mildly elevated at 386. UA with trace leukocytes today is 11-20 white cell. Urine culture sent. CT head negative for any acute intracranial abnormality. Cervical spine negative. CT pelvis and lumbar spine without any acute findings. Workup for syncope with telemetry monitoring. Likely related to hypoglycemia and/or hypotension. Continue IV fluids which has been discontinued now. Blood pressure stable hypoglycemia: Hold glimepiride and Lantus. Will also hold Farxiga. A1c came back at 6.9. To trend Accu-Cheks. still off antihyperglycemic agent however now blood sugar trending up. Will restart Lantus 15 units daily. Re start Farxiga. Hold glimepiride at discharge. Mild rhabdomyolysis hold statin UTI ceftriaxone switched to oral Hypertension mild hold blood pressure medication Entresto furosemide. Continue carvedilol for now. May restart Entresto at discharge Coronary artery disease status post stents low Back pain due to fall musculoskeletal. CT lumbar spine was negative for any acute findings. Lidocaine patch and pain controlled ordered. pt ot to see Type 2 diabetes on insulin Congestive heart failure chronic systolic/ diastolic. Echo 2020 EF 35-40% with grade 1 diastolic dysfunction. Recheck echo with ef 50-55%, inferior wall, basal inferoseptal, mid inferoseptal, basal inferolateral wall and mid inferolateral wall hypokinetic. fu as op basis Morbid obesity Hypertension Hyperlipidemia Gout Obstructive sleep apnea DVT prophylaxis Lovenox Code status full code Subjective Date/time seen: 06/05/24 12:49 Interval history: Low back pain is better today. But still hurts on the right side. No fever chills. Blood sugar trend reviewed. Review of Systems Review of Systems: All systems reviewed & are unremarkable except as noted in HPI and below Exam Narrative: GENERAL: Elderly, morbidly obese with BMI of 44.0, non-toxic, in no acute distress. HEAD: Normocephalic, atraumatic. RESPIRATORY: Airway patent, respirations nonlabored. Clear to auscultation bilaterally, no rales, rhonchi, wheezing. CARDIOVASCULAR: Regular rate and rhythm without murmurs, rubs, or gallops. ABDOMINAL: Soft, nontender, nondistended. Normoactive BS. MUSCULOSKELETAL: Moves all extremities. No gross deformities. Lower lumbar paraspinal tenderness SKIN: Warm, dry, normal color. NEURO: A&O X3. Speech clear. Cranial nerves II-XII grossly intact. No ataxic movements. No focal deficits. PSYCHIATRIC: Appropriate mood and affect. Normal interaction. Objective Data Vital Signs Vital Signs: Vital Signs - 24 hr 06/04/24 16:00 06/04/24 20:00 06/04/24 20:28 Temperature 97.7 F Pulse Rate 75 75 Respiratory Rate 16 Blood Pressure 134/53 L Pulse Oximetry 100 Oxygen Delivery Room Air 06/04/24 20:46 06/05/24 06:16 06/05/24 08:54 Temperature 98.5 F 98 F Pulse Rate 80 81 82 Respiratory Rate 20 18 Blood Pressure 145/54 H 129/50 L Pulse Oximetry 94 91 Oxygen Delivery 06/05/24 08:55 06/05/24 09:45 Temperature Pulse Rate Respiratory Rate Blood Pressure Pulse Oximetry Oxygen Delivery Room Air Room Air Intake/Output Intake/Output: Intake & Output 06/02/24 06/03/24 06/04/24 06/05/24 23:59 23:59 23:59 23:59 Intake Total 970 810 780 540 Output Total 950 500 750 500 Balance 20 310 30 40 Meds/Results Medications: Active Medications Generic Name Dose Route Start Last Admin Trade Name Freq PRN Reason Stop Dose Admin Acetaminophen 1,000 mg 06/02/24 03:34 06/05/24 08:54 Acetaminophen 500 Mg Tablet PO 1,000 mg TID PRN Administration Pain (Scale Score 1-3) Hydrocodone Bitart/Acetaminophen 1 tab 06/03/24 10:33 06/05/24 10:43 Hydrocodone/Acetaminophen (*Crx) 5-325 Mg Tablet PO 1 tab Q4H PRN Administration Pain Rated 4-6 Allopurinol 300 mg 06/02/24 09:00 06/05/24 08:54 Allopurinol 300 Mg Tablet PO 300 mg DAILY GISEL Administration Aspirin 81 mg 06/02/24 09:00 06/05/24 08:54 Aspirin 81 Mg Enteric Tablet PO 81 mg QAM GISEL Administration Bupropion HCl 75 mg 06/02/24 09:00 06/05/24 08:54 Bupropion Hcl 75 Mg Tablet PO 75 mg Q12HR GISEL Administration Carvedilol 25 mg 06/02/24 09:00 06/05/24 08:54 Carvedilol 25 Mg Tablet PO 25 mg Q12HR GISEL Administration Cephalexin HCl 500 mg 06/05/24 21:00 Cephalexin 500 Mg Capsule PO 06/08/24 09:01 Q12HR GISEL Clopidogrel Bisulfate 75 mg 06/02/24 09:00 06/05/24 08:54 Clopidogrel Bisulfate 75 Mg Tablet PO 75 mg DAILY GISEL Administration Cyclobenzaprine HCl 5 mg 06/03/24 10:36 06/03/24 11:10 Cyclobenzaprine Hcl 5 Mg Tablet PO 5 mg Q8H PRN Administration Muscle Spasm Dextrose 12.5 gm 06/01/24 17:01 Dextrose 50% 25 Gm/50 Ml Syringe IV PUSH PRN PRN Hypoglycemia Protocol Febuxostat 40 mg 06/02/24 09:00 06/05/24 08:54 Febuxostat 40 Mg Tablet PO 40 mg DAILY GISEL Administration Glucagon 1 mg 06/01/24 17:01 Glucagon For Inj 1 Mg Vial IM PRN PRN Hypoglycemia Protocol Glucose 15 gm 06/01/24 17:01 Glucose Oral Gel 15 Gm Of Glucse In 37.5 Gm Tube PO PRN PRN Hypoglycemia Protocol Dextrose 1,000 mls @ 100 mls/hr 06/01/24 17:01 Dextrose 5% 1,000 Ml IVPB PRN PRN Hypoglycemia Protocol Insulin Glargine 15 units 06/05/24 09:25 06/05/24 10:42 Insulin Glargine (*Bkc) 100 Units/Ml 0.15 units/kg (15 units) 15 units SUB-Q Administration DAILY [facility] Lidocaine 1 patch 06/03/24 11:00 06/05/24 08:55 Lidocaine 5% Patch TRANSDERM 1 patch DAILY GISEL Administration Ondansetron HCl 4 mg 06/01/24 20:34 Ondansetron Inj 4 Mg/2 Ml Vial IV PUSH Q4H PRN Nausea Radiology Results: ITS Impressions Head CT 06/01/24 18:37 IMPRESSION: No acute intracranial findings. Cervical Spine CT 06/01/24 18:42 IMPRESSION: No acute osseous abnormality cervical spine. Lumbar Spine CT 06/01/24 18:51 IMPRESSION: No acute osseous abnormality. Multilevel degenerative disc disease. Pelvis CT 06/01/24 19:03 IMPRESSION: No fracture or dislocation. Diverticulosis of the sigmoid colon. Fat-containing abdominal wall hernia. Chest X-Ray 06/02/24 10:24 IMPRESSION: 1. Pulmonary vascular congestion and mild pulmonary edema in the lower lungs. Labs Labs: Laboratory Results - last 24 hr 06/04/24 06/04/24 06/05/24 16:46 19:47 06:07 WBC 9.0 RBC 3.18 L Hgb 9.4 L Hct 31.1 L MCV 97.8 MCH 29.6 MCHC 30.2 L RDW 17.1 H Plt Count 223 MPV 9.0 Immature Gran % (Auto) 0.7 H Neut % (Auto) 84.1 H Lymph % (Auto) 7.9 L [place] % (Auto) 5.0 Eos % (Auto) 1.9 Baso % (Auto) 0.4 Lymph # (Auto) 0.71 L [place] # (Auto) 0.5 Eos # (Auto) 0.2 Baso # (Auto) 0.0 Abs Immat Gran (auto) 0.06 H Absolute Neuts (auto) 7.5 H Absolute Nucleated RBC 0.000 Nucleated RBC % 0.0 Sodium 135 L Potassium 4.1 Chloride 107 Carbon Dioxide 25 Anion Gap 3 L BUN 23 H Creatinine 1.10 H Estim Creat Clear Calc 39 Estimated GFR 48 L Glucose 150 H POC Capillary Glucose 148 H 205 H Calcium 9.1 Magnesium 2.0 Total Bilirubin 0.6 AST 68 H ALT 24 Alkaline Phosphatase 96 Total Protein 7.0 Albumin 3.3 L 06/05/24 06/05/24 08:00 11:47 WBC RBC Hgb Hct MCV MCH MCHC RDW Plt Count MPV Immature Gran % (Auto) Neut % (Auto) Lymph % (Auto) [place] % (Auto) Eos % (Auto) Baso % (Auto) Lymph # (Auto) [place] # (Auto) Eos # (Auto) Baso # (Auto) Abs Immat Gran (auto) Absolute Neuts (auto) Absolute Nucleated RBC Nucleated RBC % Sodium Potassium Chloride Carbon Dioxide Anion Gap BUN Creatinine Estim Creat Clear Calc Estimated GFR Glucose POC Capillary Glucose 186 H 182 H Calcium Magnesium Total Bilirubin AST ALT Alkaline Phosphatase Total Protein Albumin
[2024-06-05 15:38] VITALS: BP 111/42; PULSE 70; RESP 12; TEMP 36.6; O2SAT 93
[2024-06-05 17:15] LABS: Glucose Point of Care 175 mg/dl (65-105)
[2024-06-05 20:41] LABS: Glucose Point of Care 229 mg/dl (65-105)
[2024-06-05 20:43] VITALS: BP 121/49; PULSE 73; RESP 18; TEMP 36.4; O2SAT 94
[2024-06-05] MEDS: CEPHALEXIN 500 MG CAPSULE PO (22:08)
[2024-06-05 22:09] VITALS: PULSE 72
[2024-06-06 05:18] VITALS: BP 128/56; PULSE 75; RESP 20; TEMP 36.7; O2SAT 95
[2024-06-06] MEDS: ASPIRIN 81 MG ENTERIC TABLET PO (07:56)
[2024-06-06] MEDS: buPROPion HCL 75 MG TABLET PO ×2 (07:56→21:10)
[2024-06-06] MEDS: allopurinoL 300 MG TABLET PO (07:56)
[2024-06-06] MEDS: carvediloL 25 MG TABLET PO ×2 (07:56→21:09)
[2024-06-06] MEDS: FEBUXOSTAT 40 MG TABLET PO (07:56)
[2024-06-06] MEDS: CEPHALEXIN 500 MG CAPSULE PO ×2 (07:57→21:09)
[2024-06-06] MEDS: CLOPIDOGREL BISULFATE 75 MG TABLET PO (07:57)
[2024-06-06 08:06] LABS: Glucose Point of Care 142 mg/dl (65-105)
[2024-06-06] MEDS: HYDROcodone/acetaminophen (*CRX) 5-325 MG TABLET 1 TAB PO ×2 (08:06→18:52)
[2024-06-06] MEDS: INSULIN GLARGINE (*BKC) 100 UNITS/ML 15 UNITS SUB-Q (09:35)
--- NOTE | 2024-06-06 11:50 | P.PNIM_ITS ---
Progress Note: A&P Assessment and Plan (1) Elevated CK: Code(s): R74.8 - Abnormal levels of other serum enzymes Status: Acute (2) UTI (urinary tract infection): Code(s): N39.0 - Urinary tract infection, site not specified Status: Acute (3) ARNOLD (acute kidney injury): Code(s): N17.9 - Acute kidney failure, unspecified Status: Acute (4) Hypoglycemia: Code(s): E16.2 - Hypoglycemia, unspecified Status: Acute (5) Syncope and collapse: Code(s): R55 - Syncope and collapse Status: Acute (6) Leg wound, right: Code(s): S81.801A - Unspecified open wound, right lower leg, initial encounter Status: Acute (7) Essential hypertension, benign: Code(s): I10 - Essential (primary) hypertension Status: Acute (8) CAD (coronary artery disease): Code(s): I25.10 - Atherosclerotic heart disease of [place] coronary artery without angina pectoris Status: Acute (9) PADMINI (obstructive sleep apnea): Code(s): G47.33 - Obstructive sleep apnea (adult) (pediatric) Status: Acute (10) Morbid obesity with BMI of 45.0-49.9, adult: Code(s): E66.01 - Morbid (severe) obesity due to excess calories; Z68.42 - Body mass index [BMI] 45.0-49.9, adult Status: Acute (11) CHF (congestive heart failure): Code(s): I50.9 - Heart failure, unspecified Status: Acute (12) Acute kidney injury superimposed on CKD: Code(s): N17.9 - Acute kidney failure, unspecified; N18.9 - Chronic kidney disease, unspecified Status: Acute Plan Patient is an 79-year-old female, with PMH of CAD s/p coronary stenting on plavix, DM, CHF, who presents the ED via EMS with report of syncope and hypoglycemia. Per family at bedside, daughter came home to find patient on the ground altered and confused. EMS was notified. Patient was found to be hypo glycemic with a blood sugar in the 40s. She does have history of frequent hypoglycemic episodes. She is on glimepiride, farxiga And Lantus. Patient states the last thing she remembers is waking up on the ground. Daughter is unsure how long she was on the ground. She states it appeared as though she was cooking lunch, but is unsure what time this was. Patient complains of pain to her lower back and left hip, generalized weakness. Denies dizziness, lightheadedness, focal weakness, vision changes, headache, chest pain, shortness of breath. Blood sugar upon arrival to the ED was 112. Vital signs Showed borderline blood pressure. Received IV fluids. EKG without acute ST-T changes. Laboratory evaluation showed WBC of 12.3 mild anemia consistent with previous records. CMP with stable electrolytes creatinine slightly bumped to 1.4 baseline around 1.1 per records. Blood sugar on lab will 128. Lactic acid was normal at 1.6. Magnesium normal troponin was undetectable. CK mildly elevated at 386. UA with trace leukocytes today is 11-20 white cell. Urine culture sent. CT head negative for any acute intracranial abnormality. Cervical spine negative. CT pelvis and lumbar spine without any acute findings. Workup for syncope with telemetry monitoring. Likely related to hypoglycemia and/or hypotension. Continue IV fluids which has been discontinued now. Blood pressure stable hypoglycemia: Hold glimepiride and Lantus. Will also hold Farxiga. A1c came back at 6.9. To trend Accu-Cheks. still off antihyperglycemic agent however now blood sugar trending up. Will restart Lantus 15 units daily. Re start Farxiga. Hold glimepiride at discharge. Mild rhabdomyolysis hold statin UTI ceftriaxone switched to oral Hypertension mild hold blood pressure medication Entresto furosemide. Continue carvedilol for now. May restart Entresto at discharge Coronary artery disease status post stents low Back pain due to fall musculoskeletal. CT lumbar spine was negative for any acute findings. Lidocaine patch and pain controlled ordered. pt ot to see Type 2 diabetes on insulin Congestive heart failure chronic systolic/ diastolic. Echo 2020 EF 35-40% with grade 1 diastolic dysfunction. Recheck echo with ef 50-55%, inferior wall, basal inferoseptal, mid inferoseptal, basal inferolateral wall and mid inferolateral wall hypokinetic. fu as op basis Morbid obesity Hypertension Hyperlipidemia Gout Obstructive sleep apnea 06/06/24 - Assuming care. Her BP is still soft at times so continue to hold Entresto. Clarify if she is on both Uloric and Allopurinol. Add Eucerin cream to her legs. Glucose reasonable. Follow for now. Started on Rocephin and changed to Keflex for unclear reasons. Possibly due to her chronic wounds. Awaiting placement. DVT prophylaxis Lovenox Code status full code Subjective Date/time seen: 06/06/24 11:50 Interval history: 79yo female with PADMINI, CAD. DM and HTN here for confusion after being found down at home. Assuming care. Chart reviewed. She fell at home and having low back pain. Was able to stand at side of bed but felt weak in the legs. She was able to charlie lift to the chair. Eating okay. No CP or SOB. Back pain better with lidoderm and pain meds. Exam Narrative: AF 98.1 128/56 75 20 95% ra Gen - NARD Chest - CTA bilaterally, nml RR CV - RRR S1/S2 Abd - Soft, obese, NT Ext - No pedal edema. Normal SLR Neuro - Alert and oriented. no focal LE weakness. no hyperreflexia Psych - Nml mood and affect Skin - bilateral LE calf dressings clean, dry and intact. Dry scaly lower extremity skin noted. Objective Data Vital Signs Vital Signs: Vital Signs - 24 hr 06/05/24 14:32 06/05/24 15:38 06/05/24 20:43 Temperature 98 F 97.5 F L Pulse Rate 70 73 Respiratory Rate 12 18 Blood Pressure 111/42 L 121/49 L Pulse Oximetry 93 94 Oxygen Delivery Room Air 06/05/24 21:00 06/05/24 22:09 06/06/24 05:18 Temperature 98.1 F Pulse Rate 72 75 Respiratory Rate 20 Blood Pressure 128/56 L Pulse Oximetry 95 Oxygen Delivery Room Air Intake/Output Intake/Output: Intake & Output 06/03/24 06/04/24 06/05/24 06/06/24 23:59 23:59 23:59 23:59 Intake Total 118 651 2363 340 Output Total 500 290 257 6860 Balance 310 30 470 -660 Meds/Results Medications: Active Medications Generic Name Dose Route Start Last Admin Trade Name Freq PRN Reason Stop Dose Admin Acetaminophen 1,000 mg 06/02/24 03:34 06/05/24 18:00 Acetaminophen 500 Mg Tablet PO 1,000 mg TID PRN Administration Pain (Scale Score 1-3) Hydrocodone Bitart/Acetaminophen 1 tab 06/03/24 10:33 06/06/24 08:06 Hydrocodone/Acetaminophen (*Crx) 5-325 Mg Tablet PO 1 tab Q4H PRN Administration Pain Rated 4-6 Allopurinol 300 mg 06/02/24 09:00 06/06/24 07:56 Allopurinol 300 Mg Tablet PO 300 mg DAILY GISEL Administration Aspirin 81 mg 06/02/24 09:00 06/06/24 07:56 Aspirin 81 Mg Enteric Tablet PO 81 mg QAM GISEL Administration Bupropion HCl 75 mg 06/02/24 09:00 06/06/24 07:56 Bupropion Hcl 75 Mg Tablet PO 75 mg Q12HR GISEL Administration Carvedilol 25 mg 06/02/24 09:00 06/06/24 07:56 Carvedilol 25 Mg Tablet PO 25 mg Q12HR GISEL Administration Cephalexin HCl 500 mg 06/05/24 21:00 06/06/24 07:57 Cephalexin 500 Mg Capsule PO 06/08/24 09:01 500 mg Q12HR GISEL Administration Clopidogrel Bisulfate 75 mg 06/02/24 09:00 06/06/24 07:57 Clopidogrel Bisulfate 75 Mg Tablet PO 75 mg DAILY GISEL Administration Cyclobenzaprine HCl 5 mg 06/03/24 10:36 06/03/24 11:10 Cyclobenzaprine Hcl 5 Mg Tablet PO 5 mg Q8H PRN Administration Muscle Spasm Dextrose 12.5 gm 06/01/24 17:01 Dextrose 50% 25 Gm/50 Ml Syringe IV PUSH PRN PRN Hypoglycemia Protocol Febuxostat 40 mg 06/02/24 09:00 06/06/24 07:56 Febuxostat 40 Mg Tablet PO 40 mg DAILY GISEL Administration Glucagon 1 mg 06/01/24 17:01 Glucagon For Inj 1 Mg Vial IM PRN PRN Hypoglycemia Protocol Glucose 15 gm 06/01/24 17:01 Glucose Oral Gel 15 Gm Of Glucse In 37.5 Gm Tube PO PRN PRN Hypoglycemia Protocol Dextrose 1,000 mls @ 100 mls/hr 06/01/24 17:01 Dextrose 5% 1,000 Ml IVPB PRN PRN Hypoglycemia Protocol Insulin Glargine 15 units 06/05/24 09:25 06/05/24 10:42 Insulin Glargine (*Bkc) 100 Units/Ml 0.15 units/kg (15 units) 15 units SUB-Q Administration DAILY GISEL Lidocaine 1 patch 06/03/24 11:00 06/05/24 08:55 Lidocaine 5% Patch TRANSDERM 1 patch DAILY GISEL Administration Ondansetron HCl 4 mg 06/01/24 20:34 Ondansetron Inj 4 Mg/2 Ml Vial IV PUSH Q4H PRN Nausea Radiology Results: ITS Impressions Head CT 06/01/24 18:37 IMPRESSION: No acute intracranial findings. Cervical Spine CT 06/01/24 18:42 IMPRESSION: No acute osseous abnormality cervical spine. Lumbar Spine CT 06/01/24 18:51 IMPRESSION: No acute osseous abnormality. Multilevel degenerative disc disease. Pelvis CT 06/01/24 19:03 IMPRESSION: No fracture or dislocation. Diverticulosis of the sigmoid colon. Fat-containing abdominal wall hernia. Chest X-Ray 06/02/24 10:24 IMPRESSION: 1. Pulmonary vascular congestion and mild pulmonary edema in the lower lungs. Labs Labs: Laboratory Results - last 24 hr 06/05/24 06/05/24 06/05/24 11:47 16:48 20:36 POC Capillary Glucose 182 H 175 H 229 H 06/06/24 08:02 POC Capillary Glucose 142 H
[2024-06-06 11:58] LABS: Glucose Point of Care 120 mg/dl (65-105)
[2024-06-06 14:00] VITALS: BP 110/50; PULSE 74; RESP 14; TEMP 36.4; O2SAT 96
[2024-06-06] MEDS: EUCERIN CREAM 120 GM JAR 1 APPLIC TOPICAL ×2 (14:21→21:10)
[2024-06-06] MEDS: ACETAMINOPHEN 500 MG TABLET 1000 MG PO (16:24)
[2024-06-06 17:02] LABS: Glucose Point of Care 200 mg/dl (65-105)
[2024-06-06 20:00] VITALS: PULSE 80; RESP 20; O2SAT 95
[2024-06-06 20:46] VITALS: BP 108/40; PULSE 66; RESP 20; TEMP 36.1; O2SAT 94
[2024-06-06 20:55] LABS: Glucose Point of Care 242 mg/dl (65-105)
[2024-06-06 21:09] VITALS: PULSE 80
[2024-06-07] MEDS: ENOXAPARIN 40 MG/0.4 ML SYRINGE SUB-Q ×2 (00:44→20:16)
[2024-06-07] MEDS: ACETAMINOPHEN 500 MG TABLET 1000 MG PO ×2 (02:56→18:43)
[2024-06-07 05:30] VITALS: BP 113/40; PULSE 68; RESP 20; TEMP 36.2; O2SAT 93
[2024-06-07 05:47] LABS: Hematocrit 28.1 % (37.0-47.0); Hemoglobin 8.5 g/dL (12.0-15.0); Mean Corpuscular HGB Conc 30.2 g/dl (32-36); Mean Corpuscular Hemoglobin 29.5 pg (26-34); Mean Corpuscular Volume 97.6 fl (80-100); Platelet Count Result 205 k/mm3 (150-375); Red Blood Count 2.88 M/mm3 (4.2-5.4); Red Cell Distribution Width 17.4 % (11.5-14.5); White Blood Count 6.8 K/mm3 (4.5-10.0)
[2024-06-07 05:57] LABS: Anion Gap 1 mmol/L (4-12); Blood Urea Nitrogen 32 mg/dL (7-17); Calcium 9.2 mg/dL (8.4-10.2); Carbon Dioxide 24 mmol/L (22-30); Chloride 109 mmol/L (98-107); Estimated CRCL calculation 33 ml/min; Estimated Glomerular Filt Rate 39; Glucose 161 mg/dL (65-110); Potassium 4.2 mmol/L (3.4-5.0); Sodium 134 mmol/L (137-145)
[2024-06-07 08:16] LABS: Glucose Point of Care 140 mg/dl (65-105)
--- NOTE | 2024-06-07 08:21 | P.PNIM_ITS ---
Progress Note: A&P Assessment and Plan (1) Syncope and collapse: Code(s): R55 - Syncope and collapse Status: Acute (2) Hypoglycemia: Code(s): E16.2 - Hypoglycemia, unspecified Status: Acute (3) Acute kidney injury superimposed on CKD: Code(s): N17.9 - Acute kidney failure, unspecified; N18.9 - Chronic kidney disease, unspecified Status: Acute (4) Leg wound, right: Code(s): S81.801A - Unspecified open wound, right lower leg, initial encounter Status: Acute (5) Essential hypertension, benign: Code(s): I10 - Essential (primary) hypertension Status: Acute (6) CAD (coronary artery disease): Code(s): I25.10 - Atherosclerotic heart disease of [place] coronary artery without angina pectoris Status: Acute (7) CHF (congestive heart failure): Code(s): I50.9 - Heart failure, unspecified Status: Acute (8) Diabetes mellitus: Code(s): E11.9 - Type 2 diabetes mellitus without complications Status: Acute (9) PADMINI (obstructive sleep apnea): Code(s): G47.33 - Obstructive sleep apnea (adult) (pediatric) Status: Acute Assessment and Plan: Noncomplaint with treatment Plan Patient is an 79-year-old female, with PMH of CAD s/p coronary stenting on plavix, DM, CHF, who presents the ED via EMS with report of syncope and hypoglycemia. Per family at bedside, daughter came home to find patient on the ground altered and confused. EMS was notified. Patient was found to be hypoglycemic with a blood sugar in the 40s. She does have history of frequent hypoglycemic episodes. She is on glimepiride, farxiga And Lantus. Patient states the last thing she remembers is waking up on the ground. Daughter is unsure how long she was on the ground. She states it appeared as though she was cooking lunch, but is unsure what time this was. Patient complains of pain to her lower back and left hip, generalized weakness. Denies dizziness, lightheadedness, focal weakness, vision changes, headache, chest pain, shortness of breath. Blood sugar upon arrival to the ED was 112. Vital signs Showed borderline blood pressure. Received IV fluids. EKG without acute ST-T changes. Laboratory evaluation showed WBC of 12.3 mild anemia consistent with previous records. CMP with stable electrolytes creatinine slightly bumped to 1.4 baseline around 1.1 per records. Blood sugar on lab will 128. Lactic acid was normal at 1.6. Magnesium normal troponin was undetectable. CK mildly elevated at 386. UA with trace leukocytes today is 11-20 white cell. Urine culture sent. CT head negative for any acute intracranial abnormality. Cervical spine negative. CT pelvis and lumbar spine without any acute findings. Workup for syncope with telemetry monitoring. Likely related to hypoglycemia and/or hypotension. Continue IV fluids which has been discontinued now. Blood pressure stable hypoglycemia: Hold glimepiride and Lantus. Will also hold Farxiga. A1c came back at 6.9. To trend Accu-Cheks. still off antihyperglycemic agent however now blood sugar trending up. Will restart Lantus 15 units daily. Re start Farxiga. Hold glimepiride at discharge. Mild rhabdomyolysis hold statin UTI ceftriaxone switched to oral Hypertension mild hold blood pressure medication Entresto furosemide. Continue carvedilol for now. May restart Entresto at discharge Coronary artery disease status post stents low Back pain due to fall musculoskeletal. CT lumbar spine was negative for any acute findings. Lidocaine patch and pain controlled ordered. pt ot to see Type 2 diabetes on insulin Congestive heart failure chronic systolic/ diastolic. Echo 2020 EF 35-40% with grade 1 diastolic dysfunction. Recheck echo with ef 50-55%, inferior wall, basal inferoseptal, mid inferoseptal, basal inferolateral wall and mid inferolateral wall hypokinetic. fu as op basis Morbid obesity Hypertension Hyperlipidemia Gout Obstructive sleep apnea 06/06/24 - Assuming care. Her BP is still soft at times so continue to hold Entresto. Clarify if she is on both Uloric and Allopurinol. Add Eucerin cream to her legs. Glucose reasonable. Follow for now. Started on Rocephin and changed to Keflex. Possibly due to her chronic wounds. Awaiting placement. 06/07/24 - No change in condition. She is noncompliant with NIV at home and not wanting to try it here. Back pain better. Glucose better this morning at 161 but still elevated at times. Will advance lantus since dose is still lower than baseline. Cr stable at 1.1-1.4 range. Hgb drifting down to 8.5. No evidence of acute blood loss. Review and start some of her home medications. BP still soft but better. Will add back low dose Entresto. Anemia workup. DVT prophylaxis Lovenox Code status full code Subjective Date/time seen: 06/07/24 08:21 Interval history: 79yo female with PADMINI, CAD. DM and HTN here for confusion after being found down at home. Slept okay. Back pain about the same or slightly better. She is noncompliant with NIV. Denies CP, SOB or cough. No n/v. Exam Narrative: AF 97.2 113/40 68 20 93% ra Gen - NARD Chest - CTA bilaterally, nml RR CV - RRR S1/S2 Abd - Soft, obese, NT Ext - No pedal edema. Neuro - Alert and appropriate Psych - Nml mood and affect Skin - bilateral LE calf dressings clean, dry and intact. Dry scaly lower extremity skin noted. Objective Data Vital Signs Vital Signs: Vital Signs - 24 hr 06/06/24 14:00 06/06/24 20:00 06/06/24 20:46 Temperature 97.6 F 96.9 F L Pulse Rate 74 80 66 Respiratory Rate 14 20 20 Blood Pressure 110/50 L 108/40 L Pulse Oximetry 96 95 94 Oxygen Delivery Room Air 06/06/24 21:09 06/07/24 05:30 Temperature 97.2 F L Pulse Rate 80 68 Respiratory Rate 20 Blood Pressure 113/40 L Pulse Oximetry 93 Oxygen Delivery Intake/Output Intake/Output: Intake & Output 06/04/24 06/05/24 06/06/24 06/07/24 23:59 23:59 23:59 23:59 Intake Total 780 1370 1370 200 Output Total 658 116 4361 350 Balance 30 470 20 -150 Meds/Results Medications: Active Medications Generic Name Dose Route Start Last Admin Trade Name Freq PRN Reason Stop Dose Admin Acetaminophen 1,000 mg 06/02/24 03:34 06/07/24 02:56 Acetaminophen 500 Mg Tablet PO 1,000 mg TID PRN Administration Pain (Scale Score 1-3) Hydrocodone Bitart/Acetaminophen 1 tab 06/03/24 10:33 06/06/24 18:52 Hydrocodone/Acetaminophen (*Crx) 5-325 Mg Tablet PO 1 tab Q4H PRN Administration Pain Rated 4-6 Allopurinol 300 mg 06/02/24 09:00 06/06/24 07:56 Allopurinol 300 Mg Tablet PO 300 mg DAILY GISEL Administration Aspirin 81 mg 06/02/24 09:00 06/06/24 07:56 Aspirin 81 Mg Enteric Tablet PO 81 mg QAM GISEL Administration Bupropion HCl 75 mg 06/02/24 09:00 06/06/24 21:10 Bupropion Hcl 75 Mg Tablet PO 75 mg Q12HR GISEL Administration Carvedilol 25 mg 06/02/24 09:00 06/06/24 21:09 Carvedilol 25 Mg Tablet PO 25 mg Q12HR GISEL Administration Cephalexin HCl 500 mg 06/05/24 21:00 06/06/24 21:09 Cephalexin 500 Mg Capsule PO 06/08/24 09:01 500 mg Q12HR GISEL Administration Clopidogrel Bisulfate 75 mg 06/02/24 09:00 06/06/24 07:57 Clopidogrel Bisulfate 75 Mg Tablet PO 75 mg DAILY GISEL Administration Cyclobenzaprine HCl 5 mg 06/03/24 10:36 06/03/24 11:10 Cyclobenzaprine Hcl 5 Mg Tablet PO 5 mg Q8H PRN Administration Muscle Spasm Dextrose 12.5 gm 06/01/24 17:01 Dextrose 50% 25 Gm/50 Ml Syringe IV PUSH PRN PRN Hypoglycemia Protocol Enoxaparin Sodium 40 mg 06/06/24 21:50 06/07/24 00:44 Enoxaparin 40 Mg/0.4 Ml Syringe SUB-Q 40 mg HS GISEL Administration Febuxostat 40 mg 06/02/24 09:00 06/06/24 07:56 Febuxostat 40 Mg Tablet PO 40 mg DAILY GISEL Administration Glucagon 1 mg 06/01/24 17:01 Glucagon For Inj 1 Mg Vial IM PRN PRN Hypoglycemia Protocol Glucose 15 gm 06/01/24 17:01 Glucose Oral Gel 15 Gm Of Glucse In 37.5 Gm Tube PO PRN PRN Hypoglycemia Protocol Dextrose 1,000 mls @ 100 mls/hr 06/01/24 17:01 Dextrose 5% 1,000 Ml IVPB PRN PRN Hypoglycemia Protocol Insulin Glargine 15 units 06/05/24 09:25 06/06/24 09:35 Insulin Glargine (*Bkc) 100 Units/Ml 0.15 units/kg (15 units) 15 units SUB-Q Administration DAILY GISEL Lidocaine 1 patch 06/03/24 11:00 06/06/24 12:05 Lidocaine 5% Patch TRANSDERM Not Given DAILY [facility] Multi-Ingred Cream/Lotion/Oil/Oint 1 applic 06/06/24 12:30 06/06/24 21:10 Eucerin Cream 120 Gm Jar TOPICAL 1 applic BID GISEL Administration Ondansetron HCl 4 mg 06/01/24 20:34 Ondansetron Inj 4 Mg/2 Ml Vial IV PUSH Q4H PRN Nausea Radiology Results: ITS Impressions Head CT 06/01/24 18:37 IMPRESSION: No acute intracranial findings. Cervical Spine CT 06/01/24 18:42 IMPRESSION: No acute osseous abnormality cervical spine. Lumbar Spine CT 06/01/24 18:51 IMPRESSION: No acute osseous abnormality. Multilevel degenerative disc disease. Pelvis CT 06/01/24 19:03 IMPRESSION: No fracture or dislocation. Diverticulosis of the sigmoid colon. Fat-containing abdominal wall hernia. Chest X-Ray 06/02/24 10:24 IMPRESSION: 1. Pulmonary vascular congestion and mild pulmonary edema in the lower lungs. Labs Labs: Laboratory Results - last 24 hr 06/06/24 06/06/24 06/06/24 11:53 16:58 20:50 WBC RBC Hgb Hct MCV MCH MCHC RDW Plt Count MPV Sodium Potassium Chloride Carbon Dioxide Anion Gap BUN Creatinine Estim Creat Clear Calc Estimated GFR Glucose POC Capillary Glucose 120 H 200 H 242 H Calcium 06/07/24 06/07/24 05:36 08:02 WBC 6.8 RBC 2.88 L Hgb 8.5 L Hct 28.1 L MCV 97.6 MCH 29.5 MCHC 30.2 L RDW 17.4 H Plt Count 205 MPV 9.0 Sodium 134 L Potassium 4.2 Chloride 109 H Carbon Dioxide 24 Anion Gap 1 L BUN 32 H Creatinine 1.30 H Estim Creat Clear Calc 33 Estimated GFR 39 L Glucose 161 H POC Capillary Glucose 140 H Calcium 9.2
[2024-06-07] MEDS: CEPHALEXIN 500 MG CAPSULE PO ×2 (08:30→20:15)
[2024-06-07] MEDS: FEBUXOSTAT 40 MG TABLET PO (08:31)
[2024-06-07] MEDS: CLOPIDOGREL BISULFATE 75 MG TABLET PO (08:31)
[2024-06-07] MEDS: buPROPion HCL 75 MG TABLET PO ×2 (08:31→20:11)
[2024-06-07] MEDS: ASPIRIN 81 MG ENTERIC TABLET PO (08:31)
[2024-06-07] MEDS: allopurinoL 300 MG TABLET PO (08:31)
[2024-06-07 08:32] VITALS: PULSE 72
[2024-06-07] MEDS: carvediloL 25 MG TABLET PO ×2 (08:32→20:14)
[2024-06-07] MEDS: INSULIN GLARGINE (*BKC) 100 UNITS/ML 15 UNITS SUB-Q (08:32)
[2024-06-07] MEDS: LIDOCAINE 5% PATCH 1 PATCH TRANSDERM (08:32)
[2024-06-07] MEDS: EUCERIN CREAM 120 GM JAR 1 APPLIC TOPICAL ×2 (08:32→17:13)
[2024-06-07] MEDS: HYDROcodone/acetaminophen (*CRX) 5-325 MG TABLET 1 TAB PO (11:06)
--- NOTE | 2024-06-07 11:44 | PCOTNOTE ---
The patient treatment was not able to be completed. Patient reports 9/10 pain in the lower back RN aware. Will plan to continue treatment per plan of care.
[2024-06-07 11:48] LABS: Glucose Point of Care 216 mg/dl (65-105)
[2024-06-07 14:00] VITALS: BP 132/53; PULSE 72; RESP 18; TEMP 36.6; O2SAT 94
[2024-06-07 17:06] LABS: Glucose Point of Care 195 mg/dl (65-105)
[2024-06-07 19:30] VITALS: BP 120/43; PULSE 80; RESP 20; TEMP 36.4; O2SAT 95
[2024-06-07] MEDS: CYCLOBENZAPRINE HCL 5 MG TABLET PO (20:11)
[2024-06-07 20:14] VITALS: PULSE 80
[2024-06-07] MEDS: SACUBITRIL/VALSARTAN 12-13 MG TABLET 1 TAB PO (20:16)
[2024-06-07 20:31] LABS: Glucose Point of Care 212 mg/dl (65-105)
[2024-06-08 05:13] VITALS: BP 128/46; PULSE 74; RESP 16; TEMP 36.9; O2SAT 93
[2024-06-08 05:35] LABS: Basophils Percent Auto 0.6 % (0.2-1.2); Eosinophils Absolute Auto 0.2 K/mm3 (0-0.3); Eosinophils Percent Auto 3.6 % (0-4.4); Hematocrit 27.7 % (37.0-47.0); Hemoglobin 8.5 g/dL (12.0-15.0); Immature Granulocyte Absolute 0.07 K/mm3 (0.00-0.031); Lymphocytes Absolute Auto 0.74 K/mm3 (0.9-3.2); Mean Corpuscular HGB Conc 30.7 g/dl (32-36); Mean Corpuscular Hemoglobin 30.1 pg (26-34); Mean Corpuscular Volume 98.2 fl (80-100); Mean Platelet Volume 9.3 fl (7.4-10.4); Monocytes Absolute Auto 0.5 K/mm3 (0.1-0.6); Monocytes Percent Auto 7.3 % (2.6-8.5); Neutrophils Absolute Auto 5.1 K/mm3 (1.3-6.7); Neutrophils Percent Auto 76.5 % (45.5-73.1); Platelet Count Result 225 k/mm3 (150-375); Red Blood Count 2.82 M/mm3 (4.2-5.4); Red Cell Distribution Width 17.2 % (11.5-14.5); White Blood Count 6.7 K/mm3 (4.5-10.0)
[2024-06-08 05:49] LABS: Iron 31 ug/dL (37-170)
[2024-06-08 05:51] LABS: Alanine Aminotransferase 23 U/L (6-35); Albumin Level 3.2 g/dL (3.5-5.1); Alkaline Phosphatase 82 U/L (38-126); Anion Gap 3 mmol/L (4-12); Aspartate Amino Transferase 43 U/L (14-36); Bilirubin,Total 0.6 mg/dL (0.2-1.3); Blood Urea Nitrogen 33 mg/dL (7-17); Calcium 9.2 mg/dL (8.4-10.2); Carbon Dioxide 21 mmol/L (22-30); Chloride 110 mmol/L (98-107); Creatine Kinase 166 U/L (30-135); Estimated CRCL calculation 42 ml/min; Estimated Glomerular Filt Rate 53; Glucose 177 mg/dL (65-110); Potassium 4.5 mmol/L (3.4-5.0); Sodium 134 mmol/L (137-145)
[2024-06-08 06:00] LABS: Percent Iron Saturation 14 % (20-50); TOTAL IRON BINDING CAPACITY 222 ug/dL (261-462)
[2024-06-08 06:56] LABS: Folic Acid 19.9 ng/mL (2.76->20)
[2024-06-08 07:51] LABS: Glucose Point of Care 165 mg/dl (65-105)
[2024-06-08] MEDS: ASPIRIN 81 MG ENTERIC TABLET PO (08:04)
[2024-06-08] MEDS: allopurinoL 300 MG TABLET PO (08:04)
[2024-06-08 08:05] VITALS: PULSE 76
[2024-06-08] MEDS: buPROPion HCL 75 MG TABLET PO ×2 (08:05→20:23)
[2024-06-08] MEDS: CALCIUM CARBONATE (OSCAL) 500 MG TABLET PO (08:05)
[2024-06-08] MEDS: carvediloL 25 MG TABLET PO ×2 (08:05→20:23)
[2024-06-08] MEDS: ATORVASTATIN 40 MG TABLET PO (08:05)
[2024-06-08 08:06] VITALS: O2SAT 93
[2024-06-08] MEDS: CEPHALEXIN 500 MG CAPSULE PO (08:06)
[2024-06-08] MEDS: CYANOCOBALAMIN 500 MCG TABLET PO ×2 (08:06→16:58)
[2024-06-08] MEDS: THERAPEUTIC MULTIVITAMINS/MINERALS TAB (*BKC) 1 TABLET PO (08:06)
[2024-06-08] MEDS: CLOPIDOGREL BISULFATE 75 MG TABLET PO (08:06)
[2024-06-08] MEDS: SACUBITRIL/VALSARTAN 12-13 MG TABLET 1 TAB PO ×2 (08:06→20:23)
[2024-06-08] MEDS: FEBUXOSTAT 40 MG TABLET PO (08:06)
[2024-06-08] MEDS: LIDOCAINE 5% PATCH 1 PATCH TRANSDERM (08:07)
[2024-06-08] MEDS: ACETAMINOPHEN 500 MG TABLET 1000 MG PO ×2 (08:10→14:22)
[2024-06-08] MEDS: INSULIN GLARGINE (*BKC) 100 UNITS/ML 18 UNITS SUB-Q (08:13)
[2024-06-08] MEDS: EUCERIN CREAM 120 GM JAR 1 APPLIC TOPICAL ×2 (08:15→16:59)
--- NOTE | 2024-06-08 11:47 | PM.IMPN ---
Progress Note: A&P Assessment and Plan (1) Syncope and collapse: Code(s): R55 - Syncope and collapse Status: Acute (2) Hypoglycemia: Code(s): E16.2 - Hypoglycemia, unspecified Status: Acute (3) Acute kidney injury superimposed on CKD: Code(s): N17.9 - Acute kidney failure, unspecified; N18.9 - Chronic kidney disease, unspecified Status: Acute (4) Leg wound, right: Code(s): S81.801A - Unspecified open wound, right lower leg, initial encounter Status: Acute (5) Essential hypertension, benign: Code(s): I10 - Essential (primary) hypertension Status: Acute (6) CAD (coronary artery disease): Code(s): I25.10 - Atherosclerotic heart disease of [place] coronary artery without angina pectoris Status: Acute (7) CHF (congestive heart failure): Code(s): I50.9 - Heart failure, unspecified Status: Acute (8) Diabetes mellitus: Code(s): E11.9 - Type 2 diabetes mellitus without complications Status: Acute (9) PADMINI (obstructive sleep apnea): Code(s): G47.33 - Obstructive sleep apnea (adult) (pediatric) Status: Acute Assessment and Plan: Noncomplaint with treatment Plan Patient is an 79-year-old female, with PMH of CAD s/p coronary stenting on plavix, DM, CHF, who presents the ED via EMS with report of syncope and hypoglycemia. Per family at bedside, daughter came home to find patient on the ground altered and confused. EMS was notified. Patient was found to be hypoglycemic with a blood sugar in the 40s. She does have history of frequent hypoglycemic episodes. She is on glimepiride, farxiga And Lantus. Patient states the last thing she remembers is waking up on the ground. Daughter is unsure how long she was on the ground. She states it appeared as though she was cooking lunch, but is unsure what time this was. Patient complains of pain to her lower back and left hip, generalized weakness. Denies dizziness, lightheadedness, focal weakness, vision changes, headache, chest pain, shortness of breath. Blood sugar upon arrival to the ED was 112. Vital signs Showed borderline blood pressure. Received IV fluids. EKG without acute ST-T changes. Laboratory evaluation showed WBC of 12.3 mild anemia consistent with previous records. CMP with stable electrolytes creatinine slightly bumped to 1.4 baseline around 1.1 per records. Blood sugar on lab will 128. Lactic acid was normal at 1.6. Magnesium normal troponin was undetectable. CK mildly elevated at 386. UA with trace leukocytes today is 11-20 white cell. Urine culture sent. CT head negative for any acute intracranial abnormality. Cervical spine negative. CT pelvis and lumbar spine without any acute findings. Workup for syncope with telemetry monitoring. Likely related to hypoglycemia and/or hypotension. Continue IV fluids which has been discontinued now. Blood pressure stable hypoglycemia: Hold glimepiride and Lantus. Will also hold Farxiga. A1c came back at 6.9. To trend Accu-Cheks. still off antihyperglycemic agent however now blood sugar trending up. Will restart Lantus 15 units daily. Re start Farxiga. Hold glimepiride at discharge. Mild rhabdomyolysis hold statin UTI ceftriaxone switched to oral Hypertension mild hold blood pressure medication Entresto furosemide. Continue carvedilol for now. May restart Entresto at discharge Coronary artery disease status post stents low Back pain due to fall musculoskeletal. CT lumbar spine was negative for any acute findings. Lidocaine patch and pain controlled ordered. pt ot to see Type 2 diabetes on insulin Congestive heart failure chronic systolic/ diastolic. Echo 2020 EF 35-40% with grade 1 diastolic dysfunction. Recheck echo with ef 50-55%, inferior wall, basal inferoseptal, mid inferoseptal, basal inferolateral wall and mid inferolateral wall hypokinetic. fu as op basis Morbid obesity Hypertension Hyperlipidemia Gout Obstructive sleep apnea 06/06/24 - Assuming care. Her BP is still soft at times so continue to hold Entresto. Clarify if she is on both Uloric and Allopurinol. Add Eucerin cream to her legs. Glucose reasonable. Follow for now. Started on Rocephin and changed to Keflex. Possibly due to her chronic wounds. Awaiting placement. 06/07/24 - No change in condition. She is noncompliant with NIV at home and not wanting to try it here. Back pain better. Glucose better this morning at 161 but still elevated at times. Will advance lantus since dose is still lower than baseline. Cr stable at 1.1-1.4 range. Hgb drifting down to 8.5. No evidence of acute blood loss. Review and start some of her home medications. BP still soft but better. Will add back low dose Entresto. Anemia workup. 06/08/24 - Tolerating low dose Entresto. LE wounds look good. COntinue Eucerin. She finished Keflex. Stop Uloric. Continue Allopurinol. Cr stable. Anemia workup noted. Hgb low but stable. Waiting for placement. DVT prophylaxis Lovenox Code status full code Subjective Date/time seen: 06/08/24 11:47 Interval history: 79yo female with PADMINI, CAD. DM and HTN here for confusion after being found down at home. Still with back pain with minimal change. Able to stand and pivot. No CP or SOB. RN discovered that the patient has not filled the Uloric for a long time Exam Narrative: AF 98.4 128/46 76 16 93% ra Gen - NARD Chest - CTA bilaterally, nml RR CV - RRR S1/S2 Abd - Soft, obese, NT Ext - No pedal edema. Neuro - Alert and appropriate Psych - Nml mood and affect Skin - bilateral LE calf dressings clean, dry and intact. Left calf with much decreased scale and only one small dime size shallow ulcer. Objective Data Vital Signs Vital Signs: Vital Signs - 24 hr 06/07/24 14:00 06/07/24 19:30 06/07/24 20:14 Temperature 97.8 F 97.5 F L Pulse Rate 72 80 80 Respiratory Rate 18 20 Blood Pressure 132/53 L 120/43 L Pulse Oximetry 94 95 Oxygen Delivery 06/08/24 05:13 06/08/24 08:05 06/08/24 08:06 Temperature 98.4 F Pulse Rate 74 76 Respiratory Rate 16 Blood Pressure 128/46 L Pulse Oximetry 93 93 Oxygen Delivery Room Air Intake/Output Intake/Output: Intake & Output 06/05/24 06/06/24 06/07/24 06/08/24 23:59 23:59 23:59 23:59 Intake Total 1370 1370 800 680 Output Total 900 1350 1300 800 Balance 470 20 -500 -120 Meds/Results Medications: Active Medications Generic Name Dose Route Start Last Admin Trade Name Freq PRN Reason Stop Dose Admin Acetaminophen 1,000 mg 06/02/24 03:34 06/08/24 08:10 Acetaminophen 500 Mg Tablet PO 1,000 mg TID PRN Administration Pain (Scale Score 1-3) Hydrocodone Bitart/Acetaminophen 1 tab 06/03/24 10:33 06/07/24 11:06 Hydrocodone/Acetaminophen (*Crx) 5-325 Mg Tablet PO 1 tab Q4H PRN Administration Pain Rated 4-6 Allopurinol 300 mg 06/02/24 09:00 06/08/24 08:04 Allopurinol 300 Mg Tablet PO 300 mg DAILY GISEL Administration Aspirin 81 mg 06/02/24 09:00 06/08/24 08:04 Aspirin 81 Mg Enteric Tablet PO 81 mg QAM GISEL Administration Atorvastatin Calcium 40 mg 06/08/24 09:00 06/08/24 08:05 Atorvastatin 40 Mg Tablet PO 40 mg DAILY GISEL Administration Bupropion HCl 75 mg 06/02/24 09:00 06/08/24 08:05 Bupropion Hcl 75 Mg Tablet PO 75 mg Q12HR GISEL Administration Calcium Carbonate 500 mg 06/08/24 09:00 06/08/24 08:05 Calcium Carbonate ([place]) 500 Mg Tablet PO 500 mg QAM GISEL Administration Carvedilol 25 mg 06/02/24 09:00 06/08/24 08:05 Carvedilol 25 Mg Tablet PO 25 mg Q12HR GISEL Administration Clopidogrel Bisulfate 75 mg 06/02/24 09:00 06/08/24 08:06 Clopidogrel Bisulfate 75 Mg Tablet PO 75 mg DAILY GISEL Administration Cyanocobalamin 500 mcg 06/08/24 09:00 06/08/24 08:06 Cyanocobalamin 500 Mcg Tablet PO 500 mcg BID GISEL Administration Cyclobenzaprine HCl 5 mg 06/03/24 10:36 06/07/24 20:11 Cyclobenzaprine Hcl 5 Mg Tablet PO 5 mg Q8H PRN Administration Muscle Spasm Dextrose 12.5 gm 06/01/24 17:01 Dextrose 50% 25 Gm/50 Ml Syringe IV PUSH PRN PRN Hypoglycemia Protocol Enoxaparin Sodium 40 mg 06/06/24 21:50 06/07/24 20:16 Enoxaparin 40 Mg/0.4 Ml Syringe SUB-Q 40 mg HS GISEL Administration Febuxostat 40 mg 06/02/24 09:00 06/08/24 08:06 Febuxostat 40 Mg Tablet PO 40 mg DAILY GISEL Administration Glucagon 1 mg 06/01/24 17:01 Glucagon For Inj 1 Mg Vial IM PRN PRN Hypoglycemia Protocol Glucose 15 gm 06/01/24 17:01 Glucose Oral Gel 15 Gm Of Glucse In 37.5 Gm Tube PO PRN PRN Hypoglycemia Protocol Dextrose 1,000 mls @ 100 mls/hr 06/01/24 17:01 Dextrose 5% 1,000 Ml IVPB PRN PRN Hypoglycemia Protocol Insulin Glargine 18 units 06/08/24 09:00 06/08/24 08:13 Insulin Glargine (*Bkc) 100 Units/Ml SUB-Q 18 units DAILY GISEL Administration Lidocaine 1 patch 06/03/24 11:00 06/08/24 08:07 Lidocaine 5% Patch TRANSDERM 1 patch DAILY GISEL Administration Multi-Ingred Cream/Lotion/Oil/Oint 1 applic 06/06/24 12:30 06/08/24 08:15 Eucerin Cream 120 Gm Jar TOPICAL 1 applic BID GISEL Administration Multivitamins/Calcium 1 tablet 06/08/24 09:00 06/08/24 08:06 Therapeutic Multivitamins/Minerals Tab (*Bkc) PO 1 tablet DAILY GISEL Administration Ondansetron HCl 4 mg 06/01/24 20:34 Ondansetron Inj 4 Mg/2 Ml Vial IV PUSH Q4H PRN Nausea Sacubitril/Valsartan 1 tab 06/07/24 21:00 06/08/24 08:06 Sacubitril/Valsartan 12-13 Mg Tablet PO 1 tab Q12HR GISEL Administration Radiology Results: ITS Impressions Head CT 06/01/24 18:37 IMPRESSION: No acute intracranial findings. Cervical Spine CT 06/01/24 18:42 IMPRESSION: No acute osseous abnormality cervical spine. Lumbar Spine CT 06/01/24 18:51 IMPRESSION: No acute osseous abnormality. Multilevel degenerative disc disease. Pelvis CT 06/01/24 19:03 IMPRESSION: No fracture or dislocation. Diverticulosis of the sigmoid colon. Fat-containing abdominal wall hernia. Chest X-Ray 06/02/24 10:24 IMPRESSION: 1. Pulmonary vascular congestion and mild pulmonary edema in the lower lungs. Labs Labs: Laboratory Results - last 24 hr 06/07/24 06/07/24 06/07/24 11:42 16:56 19:28 WBC RBC Hgb Hct MCV MCH MCHC RDW Plt Count MPV Immature Gran % (Auto) Neut % (Auto) Lymph % (Auto) [place] % (Auto) Eos % (Auto) Baso % (Auto) Lymph # (Auto) [place] # (Auto) Eos # (Auto) Baso # (Auto) Abs Immat Gran (auto) Absolute Neuts (auto) Absolute Nucleated RBC Nucleated RBC % Sodium Potassium Chloride Carbon Dioxide Anion Gap BUN Creatinine Estim Creat Clear Calc Estimated GFR Glucose POC Capillary Glucose 216 H 195 H 212 H Calcium Iron TIBC % Saturation Ferritin Total Bilirubin AST ALT Alkaline Phosphatase Total Creatine Kinase Total Protein Albumin Vitamin B12 Folate 06/08/24 06/08/24 05:13 07:46 WBC 6.7 RBC 2.82 L Hgb 8.5 L Hct 27.7 L MCV 98.2 MCH 30.1 MCHC 30.7 L RDW 17.2 H Plt Count 225 MPV 9.3 Immature Gran % (Auto) 1.0 H Neut % (Auto) 76.5 H Lymph % (Auto) 11.0 L [place] % (Auto) 7.3 Eos % (Auto) 3.6 Baso % (Auto) 0.6 Lymph # (Auto) 0.74 L [place] # (Auto) 0.5 Eos # (Auto) 0.2 Baso # (Auto) 0.0 Abs Immat Gran (auto) 0.07 H Absolute Neuts (auto) 5.1 Absolute Nucleated RBC 0.000 Nucleated RBC % 0.0 Sodium 134 L Potassium 4.5 Chloride 110 H Carbon Dioxide 21 L Anion Gap 3 L BUN 33 H Creatinine 1.00 Estim Creat Clear Calc 42 Estimated GFR 53 L Glucose 177 H POC Capillary Glucose 165 H Calcium 9.2 Iron 31 L TIBC 222 L % Saturation 14 L Ferritin 52.20 Total Bilirubin 0.6 AST 43 H ALT 23 Alkaline Phosphatase 82 Total Creatine Kinase 166 H Total Protein 7.0 Albumin 3.2 L Vitamin B12 923.0 Folate 19.9
[2024-06-08 12:12] LABS: Glucose Point of Care 155 mg/dl (65-105)
[2024-06-08 14:00] VITALS: BP 109/74; PULSE 71; RESP 16; TEMP 36.9; O2SAT 96
[2024-06-08] MEDS: polyethylene glycoL 3350 17 GM POWD.PACK PO (16:58)
[2024-06-08 17:02] LABS: Glucose Point of Care 183 mg/dl (65-105)
[2024-06-08 19:45] VITALS: BP 114/47; PULSE 69; RESP 12; TEMP 35.9; O2SAT 98
[2024-06-08] MEDS: CYCLOBENZAPRINE HCL 5 MG TABLET PO (20:22)
[2024-06-08 20:23] VITALS: PULSE 78
[2024-06-08] MEDS: ENOXAPARIN 40 MG/0.4 ML SYRINGE SUB-Q (20:24)
[2024-06-08 21:07] LABS: Glucose Point of Care 248 mg/dl (65-105)
[2024-06-09 04:55] VITALS: BP 126/51; PULSE 72; RESP 20; TEMP 36.3; O2SAT 94
[2024-06-09 08:29] VITALS: PULSE 72
[2024-06-09] MEDS: ASPIRIN 81 MG ENTERIC TABLET PO (08:29)
[2024-06-09] MEDS: ATORVASTATIN 40 MG TABLET PO (08:29)
[2024-06-09] MEDS: carvediloL 25 MG TABLET PO ×2 (08:29→20:39)
[2024-06-09] MEDS: THERAPEUTIC MULTIVITAMINS/MINERALS TAB (*BKC) 1 TABLET PO (08:29)
[2024-06-09] MEDS: CALCIUM CARBONATE (OSCAL) 500 MG TABLET PO (08:29)
[2024-06-09] MEDS: buPROPion HCL 75 MG TABLET PO ×2 (08:29→20:39)
[2024-06-09] MEDS: LIDOCAINE 5% PATCH 1 PATCH TRANSDERM (08:29)
[2024-06-09] MEDS: SACUBITRIL/VALSARTAN 12-13 MG TABLET 1 TAB PO ×2 (08:29→20:39)
[2024-06-09] MEDS: CLOPIDOGREL BISULFATE 75 MG TABLET PO (08:29)
[2024-06-09] MEDS: polyethylene glycoL 3350 17 GM POWD.PACK PO (08:29)
[2024-06-09] MEDS: allopurinoL 300 MG TABLET PO (08:29)
[2024-06-09 08:30] LABS: Glucose Point of Care 187 mg/dl (65-105)
[2024-06-09] MEDS: CYANOCOBALAMIN 500 MCG TABLET PO ×2 (08:30→16:44)
[2024-06-09] MEDS: EUCERIN CREAM 120 GM JAR 1 APPLIC TOPICAL ×2 (08:30→17:34)
[2024-06-09] MEDS: INSULIN GLARGINE (*BKC) 100 UNITS/ML 18 UNITS SUB-Q (08:34)
--- NOTE | 2024-06-09 13:16 | PCNWS ---
Weekly nutritional screen. Patient is tolerating current Diabetic consistent carb diet with adequate intake. BG trending better. Glucerna shakes BID for additional 270 kcal and 9 g protein each. No weight loss reported. No nutritional needs at this time.
[2024-06-09 14:00] VITALS: BP 102/50; PULSE 66; RESP 16; TEMP 36.2; O2SAT 94
--- NOTE | 2024-06-09 15:21 | P.PNIM_ITS ---
Progress Note: A&P Assessment and Plan (1) Syncope and collapse: Code(s): R55 - Syncope and collapse Status: Acute (2) Hypoglycemia: Code(s): E16.2 - Hypoglycemia, unspecified Status: Acute (3) Acute kidney injury superimposed on CKD: Code(s): N17.9 - Acute kidney failure, unspecified; N18.9 - Chronic kidney disease, unspecified Status: Acute (4) Leg wound, right: Code(s): S81.801A - Unspecified open wound, right lower leg, initial encounter Status: Acute (5) Essential hypertension, benign: Code(s): I10 - Essential (primary) hypertension Status: Acute (6) CAD (coronary artery disease): Code(s): I25.10 - Atherosclerotic heart disease of [place] coronary artery without angina pectoris Status: Acute (7) CHF (congestive heart failure): Code(s): I50.9 - Heart failure, unspecified Status: Acute (8) Diabetes mellitus: Code(s): E11.9 - Type 2 diabetes mellitus without complications Status: Acute (9) PADMINI (obstructive sleep apnea): Code(s): G47.33 - Obstructive sleep apnea (adult) (pediatric) Status: Acute Assessment and Plan: Noncomplaint with treatment Plan Patient is an 79-year-old female, with PMH of CAD s/p coronary stenting on plavix, DM, CHF, who presents the ED via EMS with report of syncope and hypoglycemia. Per family at bedside, daughter came home to find patient on the ground altered and confused. EMS was notified. Patient was found to be hypoglycemic with a blood sugar in the 40s. She does have history of frequent hypoglycemic episodes. She is on glimepiride, farxiga And Lantus. Patient states the last thing she remembers is waking up on the ground. Daughter is unsure how long she was on the ground. She states it appeared as though she was cooking lunch, but is unsure what time this was. Patient complains of pain to her lower back and left hip, generalized weakness. Denies dizziness, lightheadedness, focal weakness, vision changes, headache, chest pain, shortness of breath. Blood sugar upon arrival to the ED was 112. Vital signs Showed borderline blood pressure. Received IV fluids. EKG without acute ST-T changes. Laboratory evaluation showed WBC of 12.3 mild anemia consistent with previous records. CMP with stable electrolytes creatinine slightly bumped to 1.4 baseline around 1.1 per records. Blood sugar on lab will 128. Lactic acid was normal at 1.6. Magnesium normal troponin was undetectable. CK mildly elevated at 386. UA with trace leukocytes today is 11-20 white cell. Urine culture sent. CT head negative for any acute intracranial abnormality. Cervical spine negative. CT pelvis and lumbar spine without any acute findings. Workup for syncope with telemetry monitoring. Likely related to hypoglycemia and/or hypotension. Continue IV fluids which has been discontinued now. Blood pressure stable hypoglycemia: Hold glimepiride and Lantus. Will also hold Farxiga. A1c came back at 6.9. To trend Accu-Cheks. still off antihyperglycemic agent however now blood sugar trending up. Will restart Lantus 15 units daily. Re start Farxiga. Hold glimepiride at discharge. Mild rhabdomyolysis hold statin UTI ceftriaxone switched to oral Hypertension mild hold blood pressure medication Entresto furosemide. Continue carvedilol for now. May restart Entresto at discharge Coronary artery disease status post stents low Back pain due to fall musculoskeletal. CT lumbar spine was negative for any acute findings. Lidocaine patch and pain controlled ordered. pt ot to see Type 2 diabetes on insulin Congestive heart failure chronic systolic/ diastolic. Echo 2020 EF 35-40% with grade 1 diastolic dysfunction. Recheck echo with ef 50-55%, inferior wall, basal inferoseptal, mid inferoseptal, basal inferolateral wall and mid inferolateral wall hypokinetic. fu as op basis Morbid obesity Hypertension Hyperlipidemia Gout Obstructive sleep apnea 06/06/24 - Assuming care. Her BP is still soft at times so continue to hold Entresto. Clarify if she is on both Uloric and Allopurinol. Add Eucerin cream to her legs. Glucose reasonable. Follow for now. Started on Rocephin and changed to Keflex. Possibly due to her chronic wounds. Awaiting placement. 06/07/24 - No change in condition. She is noncompliant with NIV at home and not wanting to try it here. Back pain better. Glucose better this morning at 161 but still elevated at times. Will advance lantus since dose is still lower than baseline. Cr stable at 1.1-1.4 range. Hgb drifting down to 8.5. No evidence of acute blood loss. Review and start some of her home medications. BP still soft but better. Will add back low dose Entresto. Anemia workup. 06/08/24 - Tolerating low dose Entresto. LE wounds look good. COntinue Eucerin. She finished Keflex. Stop Uloric. Continue Allopurinol. Cr stable. Anemia workup noted. Hgb low but stable. Waiting for placement. 06/09/24 - No change today. Continue current medical regiment. Can not advance Entresto. DVT prophylaxis Lovenox Code status full code Subjective Date/time seen: 06/09/24 15:21 Interval history: 79yo female with PADMINI, CAD. DM and HTN here for confusion after being found down at home. Feeling better. Eating okay. No problems overnight. No CP or SOB. Exam Narrative: AF 97.1 102/50 66 16 94% ra Gen - NARD sittin gup in chair Chest - CTA bilaterally, nml RR CV - RRR S1/S2 Abd - Soft, obese, NT Ext - No pedal edema. Neuro - Alert and appropriate Psych - Nml mood and affect Skin - bilateral LE calf dressings clean, dry and intact. Objective Data Vital Signs Vital Signs: Vital Signs - 24 hr 06/08/24 19:45 06/08/24 20:23 06/09/24 04:55 Temperature 96.6 F L 97.3 F L Pulse Rate 69 78 72 Respiratory Rate 12 20 Blood Pressure 114/47 L 126/51 L Pulse Oximetry 98 94 06/09/24 08:29 06/09/24 14:00 Temperature 97.1 F L Pulse Rate 72 66 Respiratory Rate 16 Blood Pressure 102/50 L Pulse Oximetry 94 Intake/Output Intake/Output: Intake & Output 06/06/24 06/07/24 06/08/24 06/09/24 23:59 23:59 23:59 23:59 Intake Total 1370 800 680 100 Output Total 1350 1300 1350 650 Balance 20 500 670 -550 Meds/Results Medications: Active Medications Generic Name Dose Route Start Last Admin Trade Name Freq PRN Reason Stop Dose Admin Acetaminophen 1,000 mg 06/02/24 03:34 06/08/24 14:22 Acetaminophen 500 Mg Tablet PO 1,000 mg TID PRN Administration Pain (Scale Score 1-3) Hydrocodone Bitart/Acetaminophen 1 tab 06/03/24 10:33 06/07/24 11:06 Hydrocodone/Acetaminophen (*Crx) 5-325 Mg Tablet PO 1 tab Q4H PRN Administration Pain Rated 4-6 Allopurinol 300 mg 06/02/24 09:00 06/09/24 08:29 Allopurinol 300 Mg Tablet PO 300 mg DAILY GISEL Administration Aspirin 81 mg 06/02/24 09:00 06/09/24 08:29 Aspirin 81 Mg Enteric Tablet PO 81 mg QAM GISEL Administration Atorvastatin Calcium 40 mg 06/08/24 09:00 06/09/24 08:29 Atorvastatin 40 Mg Tablet PO 40 mg DAILY GISEL Administration Bupropion HCl 75 mg 06/02/24 09:00 06/09/24 08:29 Bupropion Hcl 75 Mg Tablet PO 75 mg Q12HR GISEL Administration Calcium Carbonate 500 mg 06/08/24 09:00 06/09/24 08:29 Calcium Carbonate (Oscal) 500 Mg Tablet PO 500 mg QAM GISEL Administration Carvedilol 25 mg 06/02/24 09:00 06/09/24 08:29 Carvedilol 25 Mg Tablet PO 25 mg Q12HR GISEL Administration Clopidogrel Bisulfate 75 mg 06/02/24 09:00 06/09/24 08:29 Clopidogrel Bisulfate 75 Mg Tablet PO 75 mg DAILY GISEL Administration Cyanocobalamin 500 mcg 06/08/24 09:00 06/09/24 08:30 Cyanocobalamin 500 Mcg Tablet PO 500 mcg BID GISEL Administration Cyclobenzaprine HCl 5 mg 06/03/24 10:36 06/08/24 20:22 Cyclobenzaprine Hcl 5 Mg Tablet PO 5 mg Q8H PRN Administration Muscle Spasm Dextrose 12.5 gm 06/01/24 17:01 Dextrose 50% 25 Gm/50 Ml Syringe IV PUSH PRN PRN Hypoglycemia Protocol Enoxaparin Sodium 40 mg 06/06/24 21:50 06/08/24 20:24 Enoxaparin 40 Mg/0.4 Ml Syringe SUB-Q 40 mg HS GISEL Administration Glucagon 1 mg 06/01/24 17:01 Glucagon For Inj 1 Mg Vial IM PRN PRN Hypoglycemia Protocol Glucose 15 gm 06/01/24 17:01 Glucose Oral Gel 15 Gm Of Glucse In 37.5 Gm Tube PO PRN PRN Hypoglycemia Protocol Dextrose 1,000 mls @ 100 mls/hr 06/01/24 17:01 Dextrose 5% 1,000 Ml IVPB PRN PRN Hypoglycemia Protocol Insulin Glargine 18 units 06/08/24 09:00 06/09/24 08:34 Insulin Glargine (*Bkc) 100 Units/Ml SUB-Q 18 units DAILY GISEL Administration Lidocaine 1 patch 06/03/24 11:00 06/09/24 08:29 Lidocaine 5% Patch TRANSDERM 1 patch DAILY GISEL Administration Multi-Ingred Cream/Lotion/Oil/Oint 1 applic 06/06/24 12:30 06/09/24 08:30 Eucerin Cream 120 Gm Jar TOPICAL 1 applic BID GISEL Administration Multivitamins/Calcium 1 tablet 06/08/24 09:00 06/09/24 08:29 Therapeutic Multivitamins/Minerals Tab (*Bkc) PO 1 tablet DAILY GISEL Administration Ondansetron HCl 4 mg 06/01/24 20:34 Ondansetron Inj 4 Mg/2 Ml Vial IV PUSH Q4H PRN Nausea Polyethylene Glycol 17 gm 06/08/24 16:00 06/09/24 08:29 Polyethylene Glycol 3350 17 Gm Powd.Pack PO 17 gm QAM GISEL Administration Sacubitril/Valsartan 1 tab 06/07/24 21:00 06/09/24 08:29 Sacubitril/Valsartan 12-13 Mg Tablet PO 1 tab Q12HR GISEL Administration Radiology Results: ITS Impressions Head CT 06/01/24 18:37 IMPRESSION: No acute intracranial findings. Cervical Spine CT 06/01/24 18:42 IMPRESSION: No acute osseous abnormality cervical spine. Lumbar Spine CT 06/01/24 18:51 IMPRESSION: No acute osseous abnormality. Multilevel degenerative disc disease. Pelvis CT 06/01/24 19:03 IMPRESSION: No fracture or dislocation. Diverticulosis of the sigmoid colon. Fat-containing abdominal wall hernia. Chest X-Ray 06/02/24 10:24 IMPRESSION: 1. Pulmonary vascular congestion and mild pulmonary edema in the lower lungs. Labs Labs: Laboratory Results - last 24 hr 06/08/24 06/08/24 06/09/24 16:57 19:40 08:18 POC Capillary Glucose 183 H 248 H 187 H
[2024-06-09] MEDS: ACETAMINOPHEN 500 MG TABLET 1000 MG PO (16:43)
[2024-06-09 16:53] LABS: Glucose Point of Care 211 mg/dl (65-105)
[2024-06-09 17:43] LABS: Glucose Point of Care 198 mg/dl (65-105)
[2024-06-09 20:39] VITALS: PULSE 70
[2024-06-09] MEDS: CYCLOBENZAPRINE HCL 5 MG TABLET PO (20:39)
[2024-06-09] MEDS: ENOXAPARIN 40 MG/0.4 ML SYRINGE SUB-Q (20:39)
[2024-06-09 20:40] LABS: Glucose Point of Care 311 mg/dl (65-105)
[2024-06-09 20:57] VITALS: BP 111/50; PULSE 67; RESP 18; TEMP 36.6; O2SAT 97
[2024-06-10] VITALS (8 sets, daily range): BP systolic 110–127; BP diastolic 45–58; PULSE 66–82; RESP 14–18; TEMP 36.5–36.9; O2SAT 93–97
[2024-06-10 08:40] LABS: Glucose Point of Care 178 mg/dl (65-105)
[2024-06-10] MEDS: LIDOCAINE 5% PATCH 1 PATCH TRANSDERM (08:49)
[2024-06-10] MEDS: buPROPion HCL 75 MG TABLET PO ×2 (08:50→21:09)
[2024-06-10] MEDS: THERAPEUTIC MULTIVITAMINS/MINERALS TAB (*BKC) 1 TABLET PO (08:50)
[2024-06-10] MEDS: CALCIUM CARBONATE (OSCAL) 500 MG TABLET PO (08:50)
[2024-06-10] MEDS: CYANOCOBALAMIN 500 MCG TABLET PO ×2 (08:50→16:30)
[2024-06-10] MEDS: SACUBITRIL/VALSARTAN 12-13 MG TABLET 1 TAB PO (08:50)
[2024-06-10] MEDS: ATORVASTATIN 40 MG TABLET PO (08:50)
[2024-06-10] MEDS: ASPIRIN 81 MG ENTERIC TABLET PO (08:50)
[2024-06-10] MEDS: polyethylene glycoL 3350 17 GM POWD.PACK PO (08:51)
[2024-06-10] MEDS: CLOPIDOGREL BISULFATE 75 MG TABLET PO (08:51)
[2024-06-10] MEDS: allopurinoL 300 MG TABLET PO (08:51)
[2024-06-10] MEDS: carvediloL 25 MG TABLET PO ×2 (08:51→21:08)
[2024-06-10] MEDS: EUCERIN CREAM 120 GM JAR 1 APPLIC TOPICAL ×2 (08:52→16:30)
[2024-06-10] MEDS: ACETAMINOPHEN 500 MG TABLET 1000 MG PO ×2 (08:53→21:14)
[2024-06-10] MEDS: INSULIN GLARGINE (*BKC) 100 UNITS/ML 18 UNITS SUB-Q (08:54)
[2024-06-10 13:01] LABS: Glucose Point of Care 264 mg/dl (65-105)
[2024-06-10] MEDS: INSULIN ASPART (*BKC) 100 UNITS/ML SUB-Q ×2 (13:03→17:35)
--- NOTE | 2024-06-10 14:19 | PM.IMPN ---
Progress Note: A&P Assessment and Plan (1) Syncope and collapse: Code(s): R55 - Syncope and collapse Status: Acute (2) Hypoglycemia: Code(s): E16.2 - Hypoglycemia, unspecified Status: Acute (3) Acute kidney injury superimposed on CKD: Code(s): N17.9 - Acute kidney failure, unspecified; N18.9 - Chronic kidney disease, unspecified Status: Acute (4) Leg wound, right: Code(s): S81.801A - Unspecified open wound, right lower leg, initial encounter Status: Acute (5) Essential hypertension, benign: Code(s): I10 - Essential (primary) hypertension Status: Acute (6) CAD (coronary artery disease): Code(s): I25.10 - Atherosclerotic heart disease of [place] coronary artery without angina pectoris Status: Acute (7) CHF (congestive heart failure): Code(s): I50.9 - Heart failure, unspecified Status: Acute (8) Diabetes mellitus: Code(s): E11.9 - Type 2 diabetes mellitus without complications Status: Acute (9) PADMINI (obstructive sleep apnea): Code(s): G47.33 - Obstructive sleep apnea (adult) (pediatric) Status: Acute Assessment and Plan: Noncomplaint with treatment Plan Patient is an 79-year-old female, with PMH of CAD s/p coronary stenting on plavix, DM, CHF, who presents the ED via EMS with report of syncope and hypoglycemia. Per family at bedside, daughter came home to find patient on the ground altered and confused. EMS was notified. Patient was found to be hypoglycemic with a blood sugar in the 40s. She does have history of frequent hypoglycemic episodes. She is on glimepiride, farxiga And Lantus. Patient states the last thing she remembers is waking up on the ground. Daughter is unsure how long she was on the ground. She states it appeared as though she was cooking lunch, but is unsure what time this was. Patient complains of pain to her lower back and left hip, generalized weakness. Denies dizziness, lightheadedness, focal weakness, vision changes, headache, chest pain, shortness of breath. Blood sugar upon arrival to the ED was 112. Vital signs Showed borderline blood pressure. Received IV fluids. EKG without acute ST-T changes. Laboratory evaluation showed WBC of 12.3 mild anemia consistent with previous records. CMP with stable electrolytes creatinine slightly bumped to 1.4 baseline around 1.1 per records. Blood sugar on lab will 128. Lactic acid was normal at 1.6. Magnesium normal troponin was undetectable. CK mildly elevated at 386. UA with trace leukocytes today is 11-20 white cell. Urine culture sent. CT head negative for any acute intracranial abnormality. Cervical spine negative. CT pelvis and lumbar spine without any acute findings. Workup for syncope with telemetry monitoring. Likely related to hypoglycemia and/or hypotension. Continue IV fluids which has been discontinued now. Blood pressure stable hypoglycemia: Hold glimepiride and Lantus. Will also hold Farxiga. A1c came back at 6.9. To trend Accu-Cheks. still off antihyperglycemic agent however now blood sugar trending up. Will restart Lantus 15 units daily. Re start Farxiga. Hold glimepiride at discharge. Mild rhabdomyolysis hold statin UTI ceftriaxone switched to oral Hypertension mild hold blood pressure medication Entresto furosemide. Continue carvedilol for now. May restart Entresto at discharge Coronary artery disease status post stents low Back pain due to fall musculoskeletal. CT lumbar spine was negative for any acute findings. Lidocaine patch and pain controlled ordered. pt ot to see Type 2 diabetes on insulin Congestive heart failure chronic systolic/ diastolic. Echo 2020 EF 35-40% with grade 1 diastolic dysfunction. Recheck echo with ef 50-55%, inferior wall, basal inferoseptal, mid inferoseptal, basal inferolateral wall and mid inferolateral wall hypokinetic. fu as op basis Morbid obesity Hypertension Hyperlipidemia Gout Obstructive sleep apnea 06/06/24 - Assuming care. Her BP is still soft at times so continue to hold Entresto. Clarify if she is on both Uloric and Allopurinol. Add Eucerin cream to her legs. Glucose reasonable. Follow for now. Started on Rocephin and changed to Keflex. Possibly due to her chronic wounds. Awaiting placement. 06/07/24 - No change in condition. She is noncompliant with NIV at home and not wanting to try it here. Back pain better. Glucose better this morning at 161 but still elevated at times. Will advance lantus since dose is still lower than baseline. Cr stable at 1.1-1.4 range. Hgb drifting down to 8.5. No evidence of acute blood loss. Review and start some of her home medications. BP still soft but better. Will add back low dose Entresto. Anemia workup. 06/08/24 - Tolerating low dose Entresto. LE wounds look good. COntinue Eucerin. She finished Keflex. Stop Uloric. Continue Allopurinol. Cr stable. Anemia workup noted. Hgb low but stable. Waiting for placement. 06/09/24 - No change today. Continue current medical regiment. Can not advance Entresto. 06/10/24 - Stable. Continue current treatment plan. BP better so will advance Entresto. Adjust insulin regiment. DVT prophylaxis Lovenox Code status full code Subjective Date/time seen: 06/10/24 14:19 Interval history: 79yo female with PADMINI, CAD. DM and HTN here for confusion after being found down at home. Back pain worse again. Exam Narrative: AF 98.5 127/58 76 18 97% ra Gen - NARD Chest - CTA anteriorly CV - RRR S1/S2 Abd - Soft, obese, NT Ext - No pedal edema. Psych - Nml mood and affect Skin - bilateral LE calf dressings clean, dry and intact. Objective Data Vital Signs Vital Signs: Vital Signs - 24 hr 06/09/24 20:39 06/09/24 20:57 06/10/24 06:00 Temperature 97.8 F 98.1 F Pulse Rate 70 67 82 Respiratory Rate 18 18 Blood Pressure 111/50 L 119/50 L Pulse Oximetry 97 96 Oxygen Delivery 06/10/24 08:47 06/10/24 08:51 06/10/24 08:58 Temperature 98.5 F Pulse Rate 76 76 Respiratory Rate 18 Blood Pressure 127/58 L Pulse Oximetry 97 97 Oxygen Delivery Room Air Intake/Output Intake/Output: Intake & Output 06/07/24 06/08/24 06/09/24 06/10/24 23:59 23:59 23:59 23:59 Intake Total 800 680 820 990 Output Total 1300 1350 650 300 Balance -500 -670 170 690 Meds/Results Medications: Active Medications Generic Name Dose Route Start Last Admin Trade Name Freq PRN Reason Stop Dose Admin Acetaminophen 1,000 mg 06/02/24 03:34 06/10/24 08:53 Acetaminophen 500 Mg Tablet PO 1,000 mg TID PRN Administration Pain (Scale Score 1-3) Hydrocodone Bitart/Acetaminophen 1 tab 06/03/24 10:33 06/07/24 11:06 Hydrocodone/Acetaminophen (*Crx) 5-325 Mg Tablet PO 1 tab Q4H PRN Administration Pain Rated 4-6 Allopurinol 300 mg 06/02/24 09:00 06/10/24 08:51 Allopurinol 300 Mg Tablet PO 300 mg DAILY GISEL Administration Aspirin 81 mg 06/02/24 09:00 06/10/24 08:50 Aspirin 81 Mg Enteric Tablet PO 81 mg QAM GISEL Administration Atorvastatin Calcium 40 mg 06/08/24 09:00 06/10/24 08:50 Atorvastatin 40 Mg Tablet PO 40 mg DAILY GISEL Administration Bupropion HCl 75 mg 06/02/24 09:00 06/10/24 08:50 Bupropion Hcl 75 Mg Tablet PO 75 mg Q12HR GISEL Administration Calcium Carbonate 500 mg 06/08/24 09:00 06/10/24 08:50 Calcium Carbonate (Oscal) 500 Mg Tablet PO 500 mg QAM GISEL Administration Carvedilol 25 mg 06/02/24 09:00 06/10/24 08:51 Carvedilol 25 Mg Tablet PO 25 mg Q12HR GISEL Administration Clopidogrel Bisulfate 75 mg 06/02/24 09:00 06/10/24 08:51 Clopidogrel Bisulfate 75 Mg Tablet PO 75 mg DAILY GISEL Administration Cyanocobalamin 500 mcg 06/08/24 09:00 06/10/24 08:50 Cyanocobalamin 500 Mcg Tablet PO 500 mcg BID GISEL Administration Cyclobenzaprine HCl 5 mg 06/03/24 10:36 06/09/24 20:39 Cyclobenzaprine Hcl 5 Mg Tablet PO 5 mg Q8H PRN Administration Muscle Spasm Dextrose 12.5 gm 06/01/24 17:01 Dextrose 50% 25 Gm/50 Ml Syringe IV PUSH PRN PRN Hypoglycemia Protocol Enoxaparin Sodium 40 mg 06/06/24 21:50 06/09/24 20:39 Enoxaparin 40 Mg/0.4 Ml Syringe SUB-Q 40 mg HS GISEL Administration Glucagon 1 mg 06/01/24 17:01 Glucagon For Inj 1 Mg Vial IM PRN PRN Hypoglycemia Protocol Glucose 15 gm 06/01/24 17:01 Glucose Oral Gel 15 Gm Of Glucse In 37.5 Gm Tube PO PRN PRN Hypoglycemia Protocol Dextrose 1,000 mls @ 100 mls/hr 06/01/24 17:01 Dextrose 5% 1,000 Ml IVPB PRN PRN Hypoglycemia Protocol Insulin Aspart 5 units 06/10/24 08:00 06/10/24 13:03 Insulin Aspart (*Bkc) 100 Units/Ml 0.05 units/kg (5 units) 5 units SUB-Q Administration TIDWM GISEL Insulin Glargine 18 units 06/08/24 09:00 06/10/24 08:54 Insulin Glargine (*Bkc) 100 Units/Ml SUB-Q 18 units DAILY GISEL Administration Lidocaine 1 patch 06/03/24 11:00 06/10/24 08:49 Lidocaine 5% Patch TRANSDERM 1 patch DAILY GISEL Administration Multi-Ingred Cream/Lotion/Oil/Oint 1 applic 06/06/24 12:30 06/10/24 08:52 Eucerin Cream 120 Gm Jar TOPICAL 1 applic BID GISEL Administration Multivitamins/Calcium 1 tablet 06/08/24 09:00 06/10/24 08:50 Therapeutic Multivitamins/Minerals Tab (*Bkc) PO 1 tablet DAILY GISEL Administration Ondansetron HCl 4 mg 06/01/24 20:34 Ondansetron Inj 4 Mg/2 Ml Vial IV PUSH Q4H PRN Nausea Polyethylene Glycol 17 gm 06/08/24 16:00 06/10/24 08:51 Polyethylene Glycol 3350 17 Gm Powd.Pack PO 17 gm QAM GISEL Administration Sacubitril/Valsartan 1 tab 06/07/24 21:00 06/10/24 08:50 Sacubitril/Valsartan 12-13 Mg Tablet PO 1 tab Q12HR GISEL Administration Radiology Results: ITS Impressions Head CT 06/01/24 18:37 IMPRESSION: No acute intracranial findings. Cervical Spine CT 06/01/24 18:42 IMPRESSION: No acute osseous abnormality cervical spine. Lumbar Spine CT 06/01/24 18:51 IMPRESSION: No acute osseous abnormality. Multilevel degenerative disc disease. Pelvis CT 06/01/24 19:03 IMPRESSION: No fracture or dislocation. Diverticulosis of the sigmoid colon. Fat-containing abdominal wall hernia. Chest X-Ray 06/02/24 10:24 IMPRESSION: 1. Pulmonary vascular congestion and mild pulmonary edema in the lower lungs. Labs Labs: Laboratory Results - last 24 hr 06/09/24 06/09/24 06/09/24 12:31 17:21 20:25 POC Capillary Glucose 211 H 198 H 311 H 06/10/24 06/10/24 08:04 12:50 POC Capillary Glucose 178 H 264 H
[2024-06-10 17:22] LABS: Glucose Point of Care 184 mg/dl (65-105)
[2024-06-10] MEDS: SACUBITRIL/VALSARTAN 24-26 MG TABLET 1 TAB PO (21:09)
[2024-06-10] MEDS: ENOXAPARIN 40 MG/0.4 ML SYRINGE SUB-Q (21:09)
[2024-06-10 21:15] LABS: Glucose Point of Care 226 mg/dl (65-105)
[2024-06-10] MEDS: CYCLOBENZAPRINE HCL 5 MG TABLET PO (21:15)
[2024-06-11] VITALS (8 sets, daily range): BP systolic 106–137; BP diastolic 45–61; PULSE 70–73; RESP 16–18; TEMP 36.2–36.9; O2SAT 96–98
[2024-06-11 08:14] LABS: Glucose Point of Care 178 mg/dl (65-105)
[2024-06-11] MEDS: SACUBITRIL/VALSARTAN 24-26 MG TABLET 1 TAB PO ×2 (08:38→20:52)
[2024-06-11] MEDS: carvediloL 25 MG TABLET PO ×2 (08:38→20:52)
[2024-06-11] MEDS: THERAPEUTIC MULTIVITAMINS/MINERALS TAB (*BKC) 1 TABLET PO (08:38)
[2024-06-11] MEDS: buPROPion HCL 75 MG TABLET PO ×2 (08:38→20:52)
[2024-06-11] MEDS: ASPIRIN 81 MG ENTERIC TABLET PO (08:39)
[2024-06-11] MEDS: allopurinoL 300 MG TABLET PO (08:39)
[2024-06-11] MEDS: CYANOCOBALAMIN 500 MCG TABLET PO ×2 (08:39→16:58)
[2024-06-11] MEDS: ACETAMINOPHEN 500 MG TABLET 1000 MG PO ×2 (08:39→20:57)
[2024-06-11] MEDS: ATORVASTATIN 40 MG TABLET PO (08:39)
[2024-06-11] MEDS: CALCIUM CARBONATE (OSCAL) 500 MG TABLET PO (08:39)
[2024-06-11] MEDS: CLOPIDOGREL BISULFATE 75 MG TABLET PO (08:39)
[2024-06-11] MEDS: LIDOCAINE 5% PATCH 1 PATCH TRANSDERM (08:40)
[2024-06-11] MEDS: EUCERIN CREAM 120 GM JAR 1 APPLIC TOPICAL ×2 (08:40→16:58)
[2024-06-11] MEDS: polyethylene glycoL 3350 17 GM POWD.PACK PO (08:40)
[2024-06-11] MEDS: INSULIN GLARGINE (*BKC) 100 UNITS/ML 25 UNITS SUB-Q (08:47)
[2024-06-11] MEDS: INSULIN ASPART (*BKC) 100 UNITS/ML SUB-Q ×3 (08:48→16:59)
[2024-06-11] MEDS: HYDROcodone/acetaminophen (*CRX) 5-325 MG TABLET 1 TAB PO (10:48)
[2024-06-11 12:49] LABS: Glucose Point of Care 168 mg/dl (65-105)
[2024-06-11 16:57] LABS: Glucose Point of Care 218 mg/dl (65-105)
--- NOTE | 2024-06-11 19:57 | P.PNIM_ITS ---
Progress Note: A&P Assessment and Plan (1) Syncope and collapse: Code(s): R55 - Syncope and collapse Status: Acute (2) Hypoglycemia: Code(s): E16.2 - Hypoglycemia, unspecified Status: Acute (3) Acute kidney injury superimposed on CKD: Code(s): N17.9 - Acute kidney failure, unspecified; N18.9 - Chronic kidney disease, unspecified Status: Acute (4) Leg wound, right: Code(s): S81.801A - Unspecified open wound, right lower leg, initial encounter Status: Acute (5) Essential hypertension, benign: Code(s): I10 - Essential (primary) hypertension Status: Acute (6) CAD (coronary artery disease): Code(s): I25.10 - Atherosclerotic heart disease of [place] coronary artery without angina pectoris Status: Acute (7) CHF (congestive heart failure): Code(s): I50.9 - Heart failure, unspecified Status: Acute (8) Diabetes mellitus: Code(s): E11.9 - Type 2 diabetes mellitus without complications Status: Acute (9) PADMINI (obstructive sleep apnea): Code(s): G47.33 - Obstructive sleep apnea (adult) (pediatric) Status: Acute Assessment and Plan: Noncomplaint with treatment Plan Patient is an 79-year-old female, with PMH of CAD s/p coronary stenting on plavix, DM, CHF, who presents the ED via EMS with report of syncope and hypoglycemia. Per family at bedside, daughter came home to find patient on the ground altered and confused. EMS was notified. Patient was found to be hypoglycemic with a blood sugar in the 40s. She does have history of frequent hypoglycemic episodes. She is on glimepiride, farxiga And Lantus. Patient states the last thing she remembers is waking up on the ground. Daughter is unsure how long she was on the ground. She states it appeared as though she was cooking lunch, but is unsure what time this was. Patient complains of pain to her lower back and left hip, generalized weakness. Denies dizziness, lightheadedness, focal weakness, vision changes, headache, chest pain, shortness of breath. Blood sugar upon arrival to the ED was 112. Vital signs Showed borderline blood pressure. Received IV fluids. EKG without acute ST-T changes. Laboratory evaluation showed WBC of 12.3 mild anemia consistent with previous records. CMP with stable electrolytes creatinine slightly bumped to 1.4 baseline around 1.1 per records. Blood sugar on lab will 128. Lactic acid was normal at 1.6. Magnesium normal troponin was undetectable. CK mildly elevated at 386. UA with trace leukocytes today is 11-20 white cell. Urine culture sent. CT head negative for any acute intracranial abnormality. Cervical spine negative. CT pelvis and lumbar spine without any acute findings. Workup for syncope with telemetry monitoring. Likely related to hypoglycemia and/or hypotension. Continue IV fluids which has been discontinued now. Blood pressure stable hypoglycemia: Hold glimepiride and Lantus. Will also hold Farxiga. A1c came back at 6.9. To trend Accu-Cheks. still off antihyperglycemic agent however now blood sugar trending up. Will restart Lantus 15 units daily. Re start Farxiga. Hold glimepiride at discharge. Mild rhabdomyolysis hold statin UTI ceftriaxone switched to oral Hypertension mild hold blood pressure medication Entresto furosemide. Continue carvedilol for now. May restart Entresto at discharge Coronary artery disease status post stents low Back pain due to fall musculoskeletal. CT lumbar spine was negative for any acute findings. Lidocaine patch and pain controlled ordered. pt ot to see Type 2 diabetes on insulin Congestive heart failure chronic systolic/ diastolic. Echo 2020 EF 35-40% with grade 1 diastolic dysfunction. Recheck echo with ef 50-55%, inferior wall, basal inferoseptal, mid inferoseptal, basal inferolateral wall and mid inferolateral wall hypokinetic. fu as op basis Morbid obesity Hypertension Hyperlipidemia Gout Obstructive sleep apnea 06/06/24 - Assuming care. Her BP is still soft at times so continue to hold Entresto. Clarify if she is on both Uloric and Allopurinol. Add Eucerin cream to her legs. Glucose reasonable. Follow for now. Started on Rocephin and changed to Keflex. Possibly due to her chronic wounds. Awaiting placement. 06/07/24 - No change in condition. She is noncompliant with NIV at home and not wanting to try it here. Back pain better. Glucose better this morning at 161 but still elevated at times. Will advance lantus since dose is still lower than baseline. Cr stable at 1.1-1.4 range. Hgb drifting down to 8.5. No evidence of acute blood loss. Review and start some of her home medications. BP still soft but better. Will add back low dose Entresto. Anemia workup. 06/08/24 - Tolerating low dose Entresto. LE wounds look good. COntinue Eucerin. She finished Keflex. Stop Uloric. Continue Allopurinol. Cr stable. Anemia workup noted. Hgb low but stable. Waiting for placement. 06/09/24 - No change today. Continue current medical regiment. Can not advance Entresto. 06/10/24 - Stable. Continue current treatment plan. BP better so will advance Entresto. Adjust insulin regiment. 06/11/24 - Rt ankle xray negative for fracture. Suspect rt ankle sprain related to her fall prior to admission but now more evident since being up on her feet. Monitor for now. Encouraged her to be out of bed today. Placement being arranged DVT prophylaxis Lovenox Code status full code Subjective Date/time seen: 06/11/24 19:57 Interval history: 79yo female with PADMINI, CAD. DM and HTN here for confusion after being found down at home. No Cp or SOB. Complains of right ankle pain. was up to the chair and was able to stand and pivot. Exam Narrative: AF 97.7 114/51 73 17 96% ra Gen - NARD Chest - CTA anteriorly CV - RRR S1/S2 Abd - Soft, obese, NT Ext - No pedal edema. SLR negative. palpable pain lateral malleoli right ankle. Hip flexors okay. no hyperreflexia Psych - Nml mood and affect Skin - bilateral LE calf dressings clean, dry and intact. Objective Data Vital Signs Vital Signs: Vital Signs - 24 hr 06/10/24 20:00 06/10/24 21:06 06/10/24 21:08 Temperature 97.9 F Pulse Rate 66 69 66 Respiratory Rate 14 14 Blood Pressure 112/46 L Pulse Oximetry 93 93 Oxygen Delivery Room Air 06/11/24 06:10 06/11/24 08:33 06/11/24 08:38 Temperature 98.5 F 97.2 F L Pulse Rate 70 70 70 Respiratory Rate 18 16 Blood Pressure 110/61 137/59 L Pulse Oximetry 97 98 Oxygen Delivery 06/11/24 08:39 06/11/24 15:52 Temperature 97.7 F Pulse Rate 73 Respiratory Rate 17 Blood Pressure 114/51 L Pulse Oximetry 98 96 Oxygen Delivery Room Air Intake/Output Intake/Output: Intake & Output 06/08/24 06/09/24 06/10/24 06/11/24 23:59 23:59 23:59 23:59 Intake Total 225 758 4381 1300 Output Total 1279 475 0186 700 Balance -670 170 -70 600 Meds/Results Medications: Active Medications Generic Name Dose Route Start Last Admin Trade Name Freq PRN Reason Stop Dose Admin Acetaminophen 1,000 mg 06/02/24 03:34 06/11/24 08:39 Acetaminophen 500 Mg Tablet PO 1,000 mg TID PRN Administration Pain (Scale Score 1-3) Hydrocodone Bitart/Acetaminophen 1 tab 06/03/24 10:33 06/11/24 10:48 Hydrocodone/Acetaminophen (*Crx) 5-325 Mg Tablet PO 1 tab Q4H PRN Administration Pain Rated 4-6 Allopurinol 300 mg 06/02/24 09:00 06/11/24 08:39 Allopurinol 300 Mg Tablet PO 300 mg DAILY GISEL Administration Aspirin 81 mg 06/02/24 09:00 06/11/24 08:39 Aspirin 81 Mg Enteric Tablet PO 81 mg QAM GISEL Administration Atorvastatin Calcium 40 mg 06/08/24 09:00 06/11/24 08:39 Atorvastatin 40 Mg Tablet PO 40 mg DAILY GISEL Administration Bupropion HCl 75 mg 06/02/24 09:00 06/11/24 08:38 Bupropion Hcl 75 Mg Tablet PO 75 mg Q12HR GISEL Administration Calcium Carbonate 500 mg 06/08/24 09:00 06/11/24 08:39 Calcium Carbonate (Oscal) 500 Mg Tablet PO 500 mg QAM GISEL Administration Carvedilol 25 mg 06/02/24 09:00 06/11/24 08:38 Carvedilol 25 Mg Tablet PO 25 mg Q12HR GISEL Administration Clopidogrel Bisulfate 75 mg 06/02/24 09:00 06/11/24 08:39 Clopidogrel Bisulfate 75 Mg Tablet PO 75 mg DAILY GISEL Administration Cyanocobalamin 500 mcg 06/08/24 09:00 06/11/24 16:58 Cyanocobalamin 500 Mcg Tablet PO 500 mcg BID GISEL Administration Cyclobenzaprine HCl 5 mg 06/03/24 10:36 06/10/24 21:15 Cyclobenzaprine Hcl 5 Mg Tablet PO 5 mg Q8H PRN Administration Muscle Spasm Dextrose 12.5 gm 06/01/24 17:01 Dextrose 50% 25 Gm/50 Ml Syringe IV PUSH PRN PRN Hypoglycemia Protocol Enoxaparin Sodium 40 mg 06/06/24 21:50 06/10/24 21:09 Enoxaparin 40 Mg/0.4 Ml Syringe SUB-Q 40 mg HS GISEL Administration Glucagon 1 mg 06/01/24 17:01 Glucagon For Inj 1 Mg Vial IM PRN PRN Hypoglycemia Protocol Glucose 15 gm 06/01/24 17:01 Glucose Oral Gel 15 Gm Of Glucse In 37.5 Gm Tube PO PRN PRN Hypoglycemia Protocol Dextrose 1,000 mls @ 100 mls/hr 06/01/24 17:01 Dextrose 5% 1,000 Ml IVPB PRN PRN Hypoglycemia Protocol Insulin Aspart 5 units 06/10/24 08:00 06/11/24 16:59 Insulin Aspart (*Bkc) 100 Units/Ml 0.05 units/kg (5 units) 5 units SUB-Q Administration TIDWM GISEL Insulin Glargine 25 units 06/11/24 09:00 06/11/24 08:47 Insulin Glargine (*Bkc) 100 Units/Ml SUB-Q 25 units DAILY GISEL Administration Lidocaine 1 patch 06/03/24 11:00 06/11/24 08:40 Lidocaine 5% Patch TRANSDERM 1 patch DAILY GISEL Administration Multi-Ingred Cream/Lotion/Oil/Oint 1 applic 06/06/24 12:30 06/11/24 16:58 Eucerin Cream 120 Gm Jar TOPICAL 1 applic BID GISEL Administration Multivitamins/Calcium 1 tablet 06/08/24 09:00 06/11/24 08:38 Therapeutic Multivitamins/Minerals Tab (*Bkc) PO 1 tablet DAILY GISEL Administration Ondansetron HCl 4 mg 06/01/24 20:34 Ondansetron Inj 4 Mg/2 Ml Vial IV PUSH Q4H PRN Nausea Polyethylene Glycol 17 gm 06/08/24 16:00 06/11/24 08:40 Polyethylene Glycol 3350 17 Gm Powd.Pack PO 17 gm QAM GISEL Administration Sacubitril/Valsartan 1 tab 06/10/24 21:00 06/11/24 08:38 Sacubitril/Valsartan 24-26 Mg Tablet PO 1 tab Q12HR GISEL Administration Radiology Results: ITS Impressions Head CT 06/01/24 18:37 IMPRESSION: No acute intracranial findings. Cervical Spine CT 06/01/24 18:42 IMPRESSION: No acute osseous abnormality cervical spine. Lumbar Spine CT 06/01/24 18:51 IMPRESSION: No acute osseous abnormality. Multilevel degenerative disc disease. Pelvis CT 06/01/24 19:03 IMPRESSION: No fracture or dislocation. Diverticulosis of the sigmoid colon. Fat-containing abdominal wall hernia. Chest X-Ray 06/02/24 10:24 IMPRESSION: 1. Pulmonary vascular congestion and mild pulmonary edema in the lower lungs. Ankle X-Ray 06/11/24 14:42 IMPRESSION: No acute osseous abnormality of the right ankle. Labs Labs: Laboratory Results - last 24 hr 06/10/24 06/11/24 06/11/24 21:12 08:03 12:40 POC Capillary Glucose 226 H 178 H 168 H 06/11/24 16:54 POC Capillary Glucose 218 H
[2024-06-11 20:10] LABS: Glucose Point of Care 253 mg/dl (65-105)
[2024-06-11] MEDS: ENOXAPARIN 40 MG/0.4 ML SYRINGE SUB-Q (20:54)
[2024-06-11] MEDS: CYCLOBENZAPRINE HCL 5 MG TABLET PO (20:57)
[2024-06-12 06:00] VITALS: BP 117/59; RESP 16; O2SAT 99
[2024-06-12 08:13] VITALS: BP 134/48; PULSE 66; RESP 16; TEMP 36.4; O2SAT 96
[2024-06-12 08:17] VITALS: O2SAT 96
[2024-06-12] MEDS: buPROPion HCL 75 MG TABLET PO (08:17)
[2024-06-12] MEDS: ASPIRIN 81 MG ENTERIC TABLET PO (08:17)
[2024-06-12] MEDS: SACUBITRIL/VALSARTAN 24-26 MG TABLET 1 TAB PO (08:17)
[2024-06-12] MEDS: CLOPIDOGREL BISULFATE 75 MG TABLET PO (08:17)
[2024-06-12] MEDS: CYANOCOBALAMIN 500 MCG TABLET PO (08:17)
[2024-06-12] MEDS: CALCIUM CARBONATE (OSCAL) 500 MG TABLET PO (08:17)
[2024-06-12 08:18] VITALS: PULSE 66
[2024-06-12] MEDS: allopurinoL 300 MG TABLET PO (08:18)
[2024-06-12] MEDS: carvediloL 25 MG TABLET PO (08:18)
[2024-06-12] MEDS: ATORVASTATIN 40 MG TABLET PO (08:18)
[2024-06-12] MEDS: THERAPEUTIC MULTIVITAMINS/MINERALS TAB (*BKC) 1 TABLET PO (08:18)
[2024-06-12] MEDS: LIDOCAINE 5% PATCH 1 PATCH TRANSDERM (08:25)
[2024-06-12] MEDS: EUCERIN CREAM 120 GM JAR 1 APPLIC TOPICAL (08:25)
[2024-06-12] MEDS: polyethylene glycoL 3350 17 GM POWD.PACK PO (08:25)
[2024-06-12 08:54] LABS: Glucose Point of Care 196 mg/dl (65-105)
[2024-06-12] MEDS: ACETAMINOPHEN 500 MG TABLET 1000 MG PO (09:15)
[2024-06-12] MEDS: INSULIN ASPART (*BKC) 100 UNITS/ML SUB-Q ×2 (09:16→12:58)
[2024-06-12] MEDS: INSULIN GLARGINE (*BKC) 100 UNITS/ML 25 UNITS SUB-Q (09:17)
[2024-06-12 11:53] LABS: SARS-CoV-2 RNA PCR Negative (Negative)
[2024-06-12 12:26] LABS: Glucose Point of Care 173 mg/dl (65-105)
--- NOTE | 2024-06-12 13:39 | P.DS_ITS ---
DS: Admitting Diagnosis Discharge Date 06/12/24 Admitting Diagnosis Altered mental status DS: Discharge Diagnosis Discharge Diagnosis (1) Syncope and collapse: Code(s): R55 - Syncope and collapse Status: Acute (2) Hypoglycemia: Code(s): E16.2 - Hypoglycemia, unspecified Status: Acute (3) Acute kidney injury superimposed on CKD: Code(s): N17.9 - Acute kidney failure, unspecified; N18.9 - Chronic kidney disease, unspecified Status: Acute (4) Leg wound, right: Code(s): S81.801A - Unspecified open wound, right lower leg, initial encounter Status: Acute (5) Essential hypertension, benign: Code(s): I10 - Essential (primary) hypertension Status: Acute (6) CAD (coronary artery disease): Code(s): I25.10 - Atherosclerotic heart disease of [place] coronary artery without angina pectoris Status: Acute (7) CHF (congestive heart failure): Code(s): I50.9 - Heart failure, unspecified Status: Acute (8) Diabetes mellitus: Code(s): E11.9 - Type 2 diabetes mellitus without complications Status: Acute (9) PADMINI (obstructive sleep apnea): Code(s): G47.33 - Obstructive sleep apnea (adult) (pediatric) Status: Acute DS: Summary Hospital Course Reason for hospitalization: 79yo female with PADMINI, CAD. DM and HTN here for confusion after being found down at home. Please see H&P for details. Hospital Course: Patient found on the ground and confused. EMS found her to be hypoglycemic with a blood sugar in the 40s. Blood sugar upon arrival to the ED was 112. Vital signs showed borderline blood pressure treated with IV fluids. EKG without acute ST-T changes. Laboratory evaluation showed WBC of 12.3 and mild anemia consistent with previous records. CMP with stable electrolytes. Creatinine slightly higher at 1.4 with baseline around 1.1 per records. Blood sugar on lab will 128. Lactic acid was normal. Magnesium normal. Troponin was undetectable. CK mildly elevated at 386. UA with trace leukocytes, 11-20 white cell. Urine culture sent was mixed genital roman. CT head negative for any acute intracranial abnormality. CT cervical spine negative. CT pelvis and CT lumbar spine without any acute findings. A1c 6.9%. Diabetic medications were adjusted. Blood pressure remained stable. Echo with EF 50-55%, inferior wall, basal inferoseptal, mid inferoseptal, basal inferolateral wall and mid inferolateral wall hypokinetic. Echo in 2020 showing EF 35-40% with posterior segment akinesis. She has obstructive sleep apnea but is noncomplaint with treatment. She was on both Uloric and Allopurinol on her home med list but she only has filled Allopurinol. Added Eucerin cream to her legs for significant scaling. Started on Rocephin and changed to Keflex possibly due to her chronic wounds; she completed a course of abx. We did hold her Entresto initially and then added back at low dose. Cr stable. Anemia workup consistent with anemia of chronic disease. BP better so we advanced Entresto. She worked with therapy. She overall did well and was able to be discharged on 06/12/24. Status at Discharge Cognitive/behavioral status at discharge: stable Time Spent with Patient Time attestation: Total time spent providing and/or coordinating discharge services: 35 minutes Time spent: Greater than 30 minutes Exam Narrative: AF 97.5 134/48 66 16 96% ra Gen - NARD Chest - CTA anteriorly CV - RRR S1/S2 Abd - Soft, obese, NT Ext - No pedal edema. Psych - Nml mood and affect Skin - bilateral LE calf dressings clean, dry and intact. DS: Data Data Completed and Pending Labs on day of discharge: Labs from last 24 hours 06/12/24 06/12/24 06/12/24 12:18 11:01 08:52 POC Capillary Glucose 173 H 196 H SARS-CoV-2 RNA (RT-PCR) Negative 06/11/24 06/11/24 20:00 16:54 POC Capillary Glucose 253 H 218 H SARS-CoV-2 RNA (RT-PCR) Discharge Plan Discharge Attending physician on discharge: Esteban Rosales Discharging Clinician: Esteban Rosales Anticipated Discharge Date/Time: 06/12/24 14:12 Patient Disposition: SNF Activity: as tolerated Diet: diabetic Discharge Instructions: Please check glucose before meals and before bed. Record for the doctor's review. Check blood pressure 1 to 2 times a day. Record for the doctor's review. Continue current dressing changes. Take precautions to avoid falls. Rise slowly from a lying or sitting position. Pause before standing or walking. Check daily morning weights after voiding. Call the doctor if the patient gains more than 3 lb in 2 days or 5 lb in 1 week. Contact the doctor if the patient has lightheadedness with standing or other worrisome symptoms. Avoid NSAIDs (ibuprofen, naproxen, Aleve). Tylenol is safe to take. Follow-up with the provider at the facility. Follow-up with Cardiology in 3-4 weeks. Please call for an appointment. Thank you for using [facility] for your health care needs. Patient Instructions: Antibiotic Form, Pain Management (DC) Patient Language: Malian Stand Alone Forms: General Discharge Information Follow-up/Referrals: Mihir,Aston Smith MD [Primary Care Provider] - Call for Appointment Discharge Medications: New polyethylene glycol 3350 [Miralax] 17 gram Powder In Packet 17 g PO QAM Qty: 30 0RF lidocaine [Lidoderm] 5 % Adhesive Patch,Medicated 1 patch transdermal DAILY Qty: 10 0RF Minerin Creme Cream 1 applic topical BID Qty: 113 0RF insulin aspart U-100 [Novolog U-100 Insulin aspart] 100 unit/mL Solution 5 unit subcut TIDWM Qty: 10 0RF insulin glargine [Lantus U-100 Insulin] 100 unit/mL Solution 25 unit subcut DAILY Qty: 10 0RF sacubitril-valsartan [Entresto] 24-26 mg Tablet 1 tablet PO Q12HR Qty: 60 0RF Continued atorvastatin 40 mg tablet 40 mg PO DAILY carvedilol 25 mg tablet 25 mg PO BID clopidogrel 75 mg tablet 75 mg PO DAILY bupropion HCl 75 mg tablet 75 mg PO BID calcium carbonate [Calcium 600] 600 mg calcium (1,500 mg) Tablet 600 mg PO DAILY cyanocobalamin (vitamin B-12) [Vitamin B-12] 500 mcg Tablet 500 mcg PO BID niacin 500 mg Tablet 500 mg PO DAILY aspirin 81 mg Tablet 81 mg PO DAILY acetaminophen [Tylenol Extra Strength] 500 mg Capsule 1,000 mg PO TID PRN (Reason: Pain (Scale Score 1-3)) One-A-Day Womens Formula 18 mg iron-400 mcg-500 mg Tablet 1 tablet PO DAILY allopurinol 300 mg tablet 300 mg PO DAILY dapagliflozin propanediol [Farxiga] 10 mg tablet 10 mg PO DAILY Held furosemide 20 mg Tablet 20 mg PO DAILY Hold Instructions: HOLD - resume when okay with the provider potassium chloride 10 mEq tablet,ER particles/crystals 10 meq PO DAILY Hold Instructions: HOLD - resume when okay with the provider Discontinued glimepiride 4 mg tablet 4 mg PO BIDWM insulin glargine [Lantus U-100 Insulin] 100 unit/mL Solution 35 unit SUBCUT BID febuxostat 40 mg tablet 40 mg PO DAILY sacubitril-valsartan [Entresto] 49-51 mg tablet 1 tablet PO BID Date of admission: 06/03/24 09:49 Primary Care Provider: Mihir,Aston Smith Admitting Provider: Donnie Echeverria V. Attending physician on admission: Donnie Echeverria V. Condition: Stable Hospitalist MIPS Heart Failure (Exclusion) Patient has history of Heart Transplant or Left Ventricular Assistive Device?: No IF YES, STOP HERE Heart Failure (Qualifier) Patient has current or prior documentation of LVEF less than or equal to 40%, or mod/servere depressed LVSF?: No IF NO, STOP HERE
[2024-06-12 14:47] VITALS: PULSE 66; RESP 16; TEMP 36.3; O2SAT 99
[2024-06-12 14:53] VITALS: BP 102/48
== END 2024-06-12 16:09 | DRG 638 ==
LOC: ANHED 21:42 → ANHIMU 21:50 → ANH2MED 06-03 12:45
PROVIDERS: Internal Medicine; Admitting Provider Internal Medicine; Emergency Provider Physician Assistant; PCP Internal Medicine; Visit Provider Internal Medicine
DX: E11.649 Type 2 diabetes mellitus with hypoglycemia without coma (principal); I13.0 Hypertensive heart and chronic kidney disease with heart failure and stage 1 through stage 4 chronic kidney disease, or unspecified chronic kidney disease; M62.82 Rhabdomyolysis; N39.0 Urinary tract infection, site not specified; Z68.42 Body mass index [BMI] 45.0-49.9, adult; I50.42 Chronic combined systolic (congestive) and diastolic (congestive) heart failure; N17.9 Acute kidney failure, unspecified; E66.01 Morbid (severe) obesity due to excess calories; E78.5 Hyperlipidemia, unspecified; E11.22 Type 2 diabetes mellitus with diabetic chronic kidney disease; G47.33 Obstructive sleep apnea (adult) (pediatric); I25.10 Atherosclerotic heart disease of native coronary artery without angina pectoris; I95.9 Hypotension, unspecified; I25.2 Old myocardial infarction; M10.9 Gout, unspecified; N18.9 Chronic kidney disease, unspecified; S81.801D Unspecified open wound, right lower leg, subsequent encounter; Z66 Do not resuscitate; Z11.52 Encounter for screening for COVID-19; Z95.5 Presence of coronary angioplasty implant and graft; Z79.82 Long term (current) use of aspirin; Z79.02 Long term (current) use of antithrombotics/antiplatelets; Z79.4 Long term (current) use of insulin; Z79.84 Long term (current) use of oral hypoglycemic drugs; Z91.199 Patient's noncompliance with other medical treatment and regimen due to unspecified reason; Z87.891 Personal history of nicotine dependence
CPT/HCPCS: 36415; 70450; 71045; 72125; 72131; 72192; 73610; 80048; 80053; 81001; 82550; 82607; 82728; 82746; 82948; 83036; 83540; 83550; 83605; 83735; 84443; 84484; 85025; 85027; 85610; 85730; 87086; 87635; 93005; 93306; 96365; 96372; 96375; 96376; 97110; 97161; 97165; 97530; 97535; 99285; A9270; G0378; G0379; J0696; J1650; J1815; J7030